=== PATIENT | female | born 1955 | race Caucasian/White ===

== ENCOUNTER 2025-10-08 12:46 | Inpatient (IN) | payer MEDICAID, SELFPAY ==
[2025-10-08] VITALS (7 sets, daily range): BP systolic 101–118; BP diastolic 55–78; PULSE 82–89; RESP 18–20; TEMP 36.6–36.7; O2SAT 91–96; BMI 24.2
--- OUTSIDE RECORDS SUMMARY | 2025-10-08 12:59 | XMS_ITS | Encounter Summary ---
Author Organization [facility] Address [address] [place] [address] Care Team Providers Care Oil Lease Broker Name Role Phone Kristen Quispe MD Primary Care Provider +1- [phone] Encounter Details Date Type Department Care Team (Latest Contact Info) Description 03/18/2001 Outpatient Historical [facility] Medicine [place] [address] [address] Keon Vogel DO NO ADDRESS ON FILE Backache, unspecified (Primary Dx) Social History Tobacco Use Types Packs/Day Years Used Date Smoking Tobacco: Never Assessed Comments Unknown Sex and Gender Information Value Date Recorded Sex Assigned at Not on file 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
--- OUTSIDE RECORDS SUMMARY | 2025-10-08 12:59 | XMS_ITS | Encounter Summary ---
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
--- OUTSIDE RECORDS SUMMARY | 2025-10-08 12:59 | XMS_ITS | Continuity of Care Document ---
Author Organization [facility] [place], [place], [facility] ([facility]) Address [address] [place] [address] Assessment No assessment recorded. Plan of Treatment Reminders Order Date Submit Date Provider Last Modified By Organization Details Last Modified Time Details Appointments None record ed. Lab None record ed. Referral None record ed. Procedures None record ed. Surgeries None record ed. Imaging None record ed. Medication Orders None record ed. Patient TargetsNo targets recorded. Patient Instructions Encounter Date Encounter Id Patient Instructions Last Modified By Organization Details Last Modified Time 07/19/2025 [id number] C/o dysuria. Jorgito altamirano check [facility] [email or web address] Not available 07/19/2025 14:07:07 Reason for Referral None Reported. Problems Name Problem SNOMED Code Status Onset Date Resolution Date Notes Provider Name and Address Organization Details Recorded Time Essential hypertensi on 48319664 Active 2022 Lambert English [address], [address] , [facility] 08:[facility]04 Muscular dystrophy 29992340 Active 2022 Lambert English [address], [address] , [facility], [place] 3 08:36:06 Diabetes mellitus 59590038 Active 2022 Lambert English [address], [address] , [facility], [place] 3 08:36:08 Vaginal irritation 441153759 Active 2022 YARELIS mckinnon, [facility] 3 13:01:17 Constipati on 51666106 [facility] 11:19:04 Dizziness 889998059 Active 2022 [facility] 13:34:41 Mixed anxiety and depressive disorder 316636480 Active 2022 [facility] 15:54:47 Cellulitis of right hip 2867465883536 9106 Active 2023 [facility] 10:17:16 Onychomyco sis 355464354 Active 2024 [facility] 5 15:36:59 Problem Notes None recorded. Medical Equipment None Reported. Allergies Allergen ID Allergen Name Allergen Category Reaction Reaction Severity Criticality Documentation Date Start Date Code Code System Note Provider Name and Address Organization Details Recorded Time 66134 penicilli n G potassium medicatio n Not available Not available Not available 05/16/202396831 3 RxNorm Comme nt: Recor ded 12/04 11:50 AM by Flori mari RN, Offic e Visit ; [employer] olive; Signi fican ce: *; Reaso n: Drug aller gy; ; Not Available [facility] 3 02:23:56 95166 aspirin medicatio n Not available Not available Not available 05/16/2023 1191 RxNorm Comme nt: Recor ded 12/04 11:50 AM by Flori mari RN, Offic e Visit ; [employer] olive; Signi fican ce: *; Reaso n: Drug aller gy; ; Not Available [facility] 3 02:23:56 24038 Product containin g penicilli n (product) medicatio n anaphylax is Not available high 09/06/20252007 05359 8001 SNOMED Not Available owen - External Data Service - prod 14:05:26 Medications Name Sig Start Date Stop Date Status Note LastModified by Organization Details LastModified Time Protonix 40 mg tablet,maria guadalupe yed release daily 2021 active recorded, not sent to pharmacy.; 49145; Recorded 10/12/2022 12:20PM by Yarelis Patel RN (Authorize d through Lambert English DO), Office Visit; Refill Quantity: 0; Not Available Not Available Not Available hydrocodone 5 mg-acetamin ophen 325 mg tablet Take 1 tablet every day by oral route as needed for 30 days. 2024 active Not Available Not Available Not Avai lable lovastatin 40 mg tablet daily active 0; Recorded 12/04/2022 11:50AM by Yarelis Patel RN, Office Visit; Not Available Not Available Not Available loperamide 2 mg tablet daily, as needed active 0; Recorded 12/04/2022 11:50AM by Yarelis Patel RN, Office Visit; Not Available Not Available Not Available Milk of Magnesia 400 mg/5 mL oral suspension as needed active 0; Recorded 12/04/2022 11:50AM by Yarelis Patel RN, Office Visit; Not Available Not Available Not Available Zyrtec 10 mg tablet daily active 0; Recorded 12/04/2022 11:50AM by Yarelis Patel RN, Office Visit; Not Available Not Available Not Available clopidogrel 75 mg tablet daily active 0; Recorded 12/04/2022 11:50AM by Yarelis Patel RN, Office Visit; Not Available Not Available Not Available tramadol 50 mg tablet every six hours, as needed 2021 active Recorded 06/04/2022 10:33AM by Lambert English DO, Refill Request; Refill Quantity: 120; Tablet; Not Available Not Available Not Available Zofran 4 mg tablet every six hours, as needed active 0; Recorded 12/04/2022 11:50AM by Yarelis Patel RN, Office Visit; Not Available Not Available Not Available docusate sodium 100 mg capsule daily active 0; Recorded 12/04/2022 11:50AM by Yarelis Patel RN, Office Visit; Not Available Not Available Not Available Mylanta 200 mg-200 mg-20 mg/5 mL oral suspension four times daily, as needed active 0; Recorded 12/04/2022 11:50AM by Yarelis Patel RN, Office Visit; Not Available Not Available Not Available solifenacin 10 mg tablet daily active 0; Recorded 12/04/2022 11:50AM by Yarelis Patel RN, Office Visit; Not Available Not Available Not Available nystatin two times daily, as needed active 0; Recorded 12/04/2022 11:50AM by Yarelis Patel RN, Office Visit; Not Available Not Available Not Available carboxymeth ylcellulose sodium three times daily, as needed active 0; Recorded 12/04/2022 11:50AM by Yarelis Patel RN, Office Visit; Not Available Not Available Not Available ipratropium bromide two times daily active 0; Recorded 12/04/2022 11:50AM by Yarelis Patel RN, Office Visit; Not Available Not Available Not Available Preparation H two times daily, as needed active 0; Recorded 12/04/2022 11:50AM by Yarelis Patel RN, Office Visit; Not Available Not Available Not Available furosemide daily active 0; Recorded 12/04/2022 11:50AM by Yarelis Patel RN, Office Visit; Not Available Not Available Not Available sodium chloride three times daily, as needed active 0; Recorded 12/04/2022 11:50AM by Yarelis Patel RN, Office Visit; Not Available Not Available Not Available promethazin e every six hours, as needed active 0; Recorded 12/04/2022 11:50AM by Yarelis Patel RN, Office Visit; Not Available Not Available Not Available glipizide daily active 0; Recorded 12/04/2022 11:50AM by Yarelis Patel RN, Office Visit; Not Available Not Available Not Available metformin two times daily active 0; Recorded 12/04/2022 11:50AM by Yarelis Patel RN, Office Visit; Not Available Not Available Not Available Lidocaine Viscous every six hours, as needed active 0; Recorded 12/04/2022 11:50AM by Yarelis Patel RN, Office Visit; Not Available Not Available Not Available [facility] Levothyroxi ne Sodium daily active 0; Recorded 12/04/2022 11:50AM by Yarelis Patel RN, Office Visit; Not Available Not Available Not Available Prostat two times daily active 0; Recorded 12/04/2022 11:50AM by Yarelis Patel RN, Office Visit; Not Available Not Available Not Available Mapap Arthritis Pain daily active 0; Recorded 12/04/2022 11:50AM by Yarelis Patel RN, Office Visit; Not Available Not Available Not Available Premarin two times weekly active 0; Recorded 12/04/2022 11:50AM by Yarelis Patel RN, Office Visit; Not Available Not Available Not Available Cymbalta daily 2021 active recorded, not sent to pharmacy.; 07176; Recorded 07/23/2022 10:50AM by Yarelis Patel RN (Authorize d through Lambert English DO), Office Visit; Refill Quantity: 0; Not Available Not Available Not Available Januvia 100 mg tablet daily active 0; Recorded 12/04/2022 11:50AM by Yarelis Patel RN, Office Visit; Not Available Not Available Not Available amlodipine besylate (bulk) daily 2021 active *dose decrease* recorded, not sent to pharmacy.; 27299; Recorded 03/27/2022 12:44PM by Yarelis Patel RN (Authorize d through Lambert English DO), Office Visit; Refill Quantity: 0; Not Available Not Available Not Available Biofreeze (menthol) 4 % topical gel as needed active 0; Recorded 12/04/2022 11:50AM by Yarelis Patel RN, Office Visit; Not Available Not Available Not Available Vitals Date Recorded Body height Body mass index (BMI) Body weight Heart rate Respiratory rate Body temperature Oxygen saturation Systolic And Diastolic Provider Name and Address Organization Details Last Updated DateTime 170.18 cm 21.3 kg/m2 26427.5 6 g 87 /min 20 /min 98.3 [degF] 99 % 117/68 mm[Hg] YARELIS PATEL [facility] 14:02:51 Social History Question Answer Notes LastModified by Organizat ion Details LastModified Time Tobacco Smoking Status Unknown If Ever Smoked YARELIS mckinnon, [facility] 01/15/2023 11:50:18 Have You Had Direct Contact, Or Contact During Intimacy, With Monkeypox Rash, Scabs, Or Body Fluids From A Person With Monkeypox? No [email or web address] Information not available 01/15/2023 Have You Recently Traveled Abroad? No [email or web address] Information not available 01/15/2023 Do You Have Difficulty Walking Or Climbing Stairs? Yes [email or web address] Information not available 02/12/2023 Sex: Unknown Functional Status Question Answer Note LastModified by Organizat ion Details LastModified Time Are you able to walk independently without assistance or assistive devices? NOWALK [email or web address] Information not available 01/15/2023 Do you have difficulty doing errands alone? Yes [email or web address] Information not available 02/12/2023 Are you able to care for yourself independently? No [email or web address] Information not available 01/15/2023 Do you have difficulty dressing, bathing, grooming, or toileting? Yes [email or web address] Information not available 02/12/2023 Mental Status None recorded. Family History Nothing Reported. Medical History No medical history recorded. Gynecological HistoryNo gynecological history recorded. Obstetrics History GPAL:G 0 P 0 0 0 0 Immunizations Vaccine Type Date Status Note Provider Nam e and Address Organization Details Recorded Time COVID-19, mRNA, LNP-S, PF, 100 mcg/0.5mL dose or 50 mcg/0.25mL dose 10/23/2020 completed Not Available [facility] 13:23:30 COVID-19, mRNA, LNP-S, PF, 100 mcg/0.5mL dose or 50 mcg/0.25mL dose 11/20/2020 completed Not Available [facility] 5 13:23:30 COVID-19, mRNA, LNP-S, PF, 100 mcg/0.5mL dose or 50 mcg/0.25mL dose 07/04/2022 completed Not Available [facility] 13:23:30 Past Encounters Encounter ID Performer Location Encounter Start Date Encounter Closed Date Diagnosis/Indication Diagnosis SNOMED-CT Code Diagnosis ICD10 Code Diagnosis IMO Codes Diagnosis Note [id number] Lambert English DO [facility] ([facility]) [address] [place] [address] 06/21/2025 12:20:02 06/26/2025 11:54:17 Mixed anxiety and depressive disorder 048179062 F41.8 Essential hypertension 74352009 I10 Diabetes mellitus 459648 09 E11.9 [id number] Lambert English DO [facility] ([facility]) [address] [place] [address] 07/19/2025 11:30:10 07/25/2025 07:52:36 Diabetes mellitus 76128628 E11.9 Muscular dystrophy 98706 009 G71.00 Essential hypertension 04650348 I10 Dizziness 010821597 R42 Mixed anxi ety and depressive disorder 381129060 F41.8 Hypothyroidism 45469500 E03.9 41264969 Splenomegaly 11384760 R1 6.1 7719413 Long QT syndrome 1097326 I45.81 601268 Hypertensi ve heart disease 79665609 I11.9 063320 Peripheral vascular disease 902973340 I73.9 912068 Health Concerns Section Related Observation LastModified by Organization Detai ls LastModified Time None Recorded Concern Status LastModified by Organization Details LastModified Time None Recorded Payers Encounter Date Sequence Insurance Name Policy Number Policy Frank Covered Member ID Frank Member ID Guarantor Name 07/19/2025 1 [place] Yuki Sales [id number] Yuki [employer] Notes Date Note Type Note Provider Name and Address Organization Details Recorded Time 5 text/html DiabetesReported by CaregiverHPIFor duration, caregiver reportschronic. For control, caregiver reportsusually well controlled. For compliance, caregiver reportscompliant with medicationsandcompliant with follow-up visits. For associated symptoms, caregiver reportsno weight gainandno confusion.ROS as noted in the HPI c/o dysuria. Lambert English DO [address] [place] [address], [address], [facility] 07/19/2025 15:19:12 OBGyn Episode No OBEpisode recorded.
--- OUTSIDE RECORDS SUMMARY | 2025-10-08 12:59 | XMS_ITS | Encounter Summary ---
Author Organization [employer] [facility] Address [address] [facility] Attn: Epic Prel[place] [address] Care Team Providers Care Homicide Squad Commanding Officer Name Role Phone Kristen Quispe MD Primary Care Provider +1- [phone] Encounter Details Date Type Department Care Team (Late st Contact Info) Description 12/04/1999 Outpatient Historical Qasim Aragon MD [address] [place] [address] Social History Tobacco Use Types Packs/Day Years Used Date Smoking Tobacco: Never Assessed Comments Unknown Sex and Gender Information Value Date Recorded Sex Assigned at Not on file 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
--- OUTSIDE RECORDS SUMMARY | 2025-10-08 12:59 | XMS_ITS | Encounter Summary ---
Author Organization [facility] Address [address] [place] [address] Care Team Providers Care Night Guard Name Role Phone Kristen Quispe MD Primary Care Provider +1- [phone] Encounter Details Date Type Department Care Team (Latest Contact Info) Description 11/12/1998 Outpatient Historical [facility] Medicine [place] [address] [address] Keon Vogel DO NO ADDRESS ON FILE Urinary tract infection, site not specified (Primary Dx) Social History Tobacco Use Types Packs/Day Years Used Date Smoking Tobacco: Never Assessed Comments Unknown Sex and Gender Information Value Date Recorded Sex Assigned at Not on file 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
--- OUTSIDE RECORDS SUMMARY | 2025-10-08 12:59 | XMS_ITS | Encounter Summary ---
Author Organization [facility] Address [address] [place] [address] Care Team Providers Care Tire Installer Name Role Phone Kristen Quispe MD Primary Care Provider Encounter Details Date Type Department Care Team (Latest Contact Info) Description 08/20/1998 Outpatient Historical [facility] [address] [address] Rickey Blood MD [address] [address] Urinary tract infection, site not specified (Primary Dx); Backache, unspecified Social History Tobacco Use Types Packs/Day Years Used Date Smoking Tobacco: Never Assessed Comments Unknown Sex and Gender Information Value Date Recorded Sex Assigned at Not on file Legal Sex Female 4: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
--- OUTSIDE RECORDS SUMMARY | 2025-10-08 12:59 | XMS_ITS | Encounter Summary ---
Author Organization [facility] Address [address] [facility] Attn: Epic [place] [address] Care Team Providers Care Coal Carrier Name Role Phone Kristen Quispe MD Primary Care Provider +1- [phone] Encounter Details Date Type Department Care Team (Late st Contact Info) Description 03/05/2001 Outpatient Historical Non-Staff, Physician NO ADDRESS ON FILE Social History Tobacco Use Types Packs/Day Years Used Date Smoking Tobacco: Never Assessed Comments Unknown Sex and Gender Information Value Date Recorded Sex Assigned at Not on file 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
--- OUTSIDE RECORDS SUMMARY | 2025-10-08 12:59 | XMS_ITS | Encounter Summary ---
Author Organization [facility] Address [address] [place] [address] Care Team Providers Care Chainman Name Role Phone Kristen Quispe MD Primary Care Provider Encounter Details Date Type Department Care Team (Latest Contact Info) Description 07/30/1999 Outpatient Historical [facility] [address] [address] Rickey Blood MD [address] [address] Phlebitis and thrombophlebitis of unspecified site (Primary Dx); Insomnia, unspecified Social History Tobacco Use Types Packs/Day Years Used Date Smoking Tobacco: Never Assessed Comments Unknown Sex and Gender Information Value Date Recorded Sex Assigned at Not on file 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
--- OUTSIDE RECORDS SUMMARY | 2025-10-08 12:59 | XMS_ITS | Encounter Summary ---
Author Organization [facility] Address [address] [place] [address] Care Team Providers Care [employer] Financials Consultant Name Role Phone Kristen Quispe MD Primary Care Provider Encounter Details Date Type Department Care Team (Latest Contact Info) Description 06/25/[address] 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
--- OUTSIDE RECORDS SUMMARY | 2025-10-08 12:59 | XMS_ITS | Encounter Summary ---
Author Organization [employer] [facility] Address [address] [facility] Attn: Epic [place]rel[place] [address] Care Team Providers Care Hair Clipper Power Name Role Phone Kristen Quispe MD Primary Care Provider +[phone]- [phone] Encounter Details Date Type Department Care Team (Late st Contact Info) Description 12/04/1999 Outpatient Historical Qasim Aragon MD [address] [place] [address] Social History Tobacco Use Types Packs/Day Years Used Date Smoking Tobacco: Never Assessed Comments Unknown Sex and Gender Information Value Date Recorded Sex Assigned at Not on file Legal Sex Female 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
--- OUTSIDE RECORDS SUMMARY | 2025-10-08 12:59 | XMS_ITS | Encounter Summary ---
Author Organization [facility] Address [address] [place] [address] Care Team Providers Care Deep Submergence Vehicle Crewmember Name Role Phone Kristen Quispe MD Primary Care Provider +1- [phone] Encounter Details Date Type Department Care Team (Latest Contact Info) Description 08/04/2008 Outpatient [facility] Medicine [address] [address] Suma Lees NP NO ADDRESS ON FILE Routine Gynecological Examination Social History Tobacco Use Types Packs/Day Years Used Date Smoking Tobacco: Every Day Cigarettes 1 34 Alcohol Use Standard Drinks/Week Comments No 0 (1 standard drink = 0.6 oz pur e alcohol) Comments No Sex and Gender Information Value Date Recorded Sex Assigned at Not on file Legal Sex Female 4:06 AM LIP CUTTER Gender Identity Not on file Sexual Orientation Not on file documented as of this encounter Plan of Treatment Not on file documented as of this encounter Procedures Procedure Name Priority Date/Time Associated Diagnosis Comments PATHOLOGY Routine 08/04/2008 9:17 AM CDT documented in this encounter Results * PATHOLOGY (08/04/2008 9:17 AM CDT) PATHOLOGY/YEIMY CHINO REPORT [facility] [address] [facility] [address] Patient: JORGE SALES Jes Accn No: [id number] Collected: 08/04/2008 9:17:00 AM CYTOLOGY PARTS CLERK PLANT MAINTENANCE FINAL REPORT - - PROPELLER INSPECTOR PAP History Specimen Source: None Provided hysterectomy Last Pap Date: None Provided Specimen Adequacy Satisfactory for interpretation. The smear lacks endocervical or metaplastic cells, consistent with the patient's clinical history. Diagnosis NEGATIVE FOR INTRAEPITHELIAL LESION OR MALIGNANCY. (Previously noted as Within Normal Limits) Archeologist Classical 08/14/08 Completed by: RATNA WILKINS (Electronically signed by) 08/14/08 Comment Routine follow-up is suggested. Important Info About Pap Smears HPV Testing off the Thin Prep vial can be done as a means of further evaluating a Thin Prep Report. For information about ordering the HPV test, phone Cytology at . Treatment or follow-up recommendations (if any) that are considered within this report are based upon general recommendations as contained in 2001 Consensus Guidelines For Cervical Cytological Abnormalities BANDAR: February 09, 2002, and are provided as a general guideline rather than as a specific recommendation. Final decisions about the most appropriate treatment and follow-up should be made on an individualized basis by the treating physician in consultation with his/her patient. INTERFACE SYSTEM 08/04/2008 9:17 AM CDT Suma Lees PLYWOOD STOCK GRADER PATHOLOGY/CYTOLOGY ORDERABLE S Edited INTERFACE SYSTEM Refer to clinic/hospital department documented in this encounter Visit Diagnoses Diagnosis Routine gynecological examination documented in this encounter Care Teams Deep Submergence Vehicle Crewmember Relationship Specialty Start Date End Date Kristen Quispe MD [address] [place] [address] PCP - General Family Practice 12/19/13 documented as of this encounter
--- OUTSIDE RECORDS SUMMARY | 2025-10-08 12:59 | XMS_ITS | Encounter Summary ---
Author Organization [facility] Address [address] [place] [address] Care Team Providers Care Political Science Instructor Name Role Phone Kristen Quispe MD Primary Care Provider +1- [phone] Encounter Details Date Type Department Care Team (Latest Contact Info) Description 02/22/1999 Outpatient Historical [facility] [address] [address] Keon Vogel DO NO ADDRESS ON FILE Urinary tract infection, site not specified (Primary Dx); Unspecified essential hypertension Social History Tobacco Use Types Packs/Day Years Used Date Smoking Tobacco: Never Assessed Comments Unknown Sex and Gender Information Value Date Recorded Sex Assigned at Not on file Legal Sex Female 4: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
--- OUTSIDE RECORDS SUMMARY | 2025-10-08 12:59 | XMS_ITS | Encounter Summary ---
Author Organization [facility] Address [address] [place] [address] Care Team Providers Care Anesthesiologist/Physician Name Role Phone Kristen Quispe MD Primary Care Provider +1- [phone] Encounter Details Date Type Department Care Team (Latest Contact Info) Description 01/28/2000 Outpatient Historical [facility] [address] [address] Keon Vogel DO NO ADDRESS ON FILE Urinary frequency (Primary Dx); Headache(784.0) Social History Tobacco Use Types Packs/Day Years Used Date Smoking Tobacco: Never Assessed Comments Unknown Sex and Gender Information Value Date Recorded Sex Assigned at Not on file Legal Sex Female 4:06 AM ECONOMIC RESEARCH ANALYST Gender Identity Not on file Sexual Orientation Not on file documented as of this encounter Plan of Treatment Not on file documented as of this encounter Visit Diagnoses Diagnosis Urinary frequency- Primary Headache(784.0) Headache documented in this encounter Care Teams Anesthesiologist/Physician Relationship Specialty Start Date End Date Kristen Quispe MD [address] [address] PCP - General Family Practice 12/19/13 documented as of this encounter
--- OUTSIDE RECORDS SUMMARY | 2025-10-08 12:59 | XMS_ITS | Encounter Summary ---
Author Organization [facility] Address [address] [place] [address] Care Team Providers Care Assistant Shift Supervisor Name Role Phone Kristen Quispe MD Primary Care Provider Encounter Details Date Type Department Care Team (Latest Contact Info) Description 03/16/2001 Outpatient Historical [facility] [address] [address] Rickey Blood MD [address] [address] Contusion of back(922.31) (Primary Dx) Social History Tobacco Use Types Packs/Day Years Used Date Smoking Tobacco: Never Assessed Comments Unknown Sex and Gender Information Value Date Recorded Sex Assigned at Not on file Legal Sex Female 4:06 AM CORRECTION OFFICER REFORMATORY Gender Identity Not on file Sexual Orientation Not on file documented as of this encounter Plan of Treatment Not on file documented as of this encounter Visit Diagnoses Diagnosis Contusion of back(922.31)- Primary Contusion of back documented in this encounter Care Teams Assistant Shift Supervisor Relationship Specialty Start Date End Date Kristen Quispe MD [address] [address] PCP - General Family Practice 12/19/13 documented as of this encounter
--- OUTSIDE RECORDS SUMMARY | 2025-10-08 12:59 | XMS_ITS | Encounter Summary ---
Author Organization [facility] Address [address] [place] [address] Care Team Providers Care Dry House Operator Name Role Phone Kristen Quispe MD Primary Care Provider +1- [phone] Encounter Details Date Type Department Care Team (Latest Contact Info) Description 05/08/1998 Outpatient Historical [facility] [address]tr[address], 3rd [place] [address] Minor Thomas Jr. [address], [address] [place] [address] Urethritis, unspecified (Primary Dx); Urinary tract infection, site not specified Social History Tobacco Use Types Packs/Day Years Used Date Smoking Tobacco: Never Assessed Comments Unknown Sex and Gender Information Value Date Recorded Sex Assigned at Not on file Legal Sex Female 4:06 AM DRY HOUSE OPERATOR Gender Identity Not on file Sexual Orientation Not on file documented as of this encounter Plan of Treatment Not on file documented as of this encounter Visit Diagnoses Diagnosis Urethritis, unspecified- Primary Urinary tract infection, site not specified documented in this encounter Care Teams Dry House Operator Relationship Specialty Start Date End Date Kristen Quispe MD [address] [facility] [address] [place] [address] PCP - General Family Practice 12/19/13 documented as of this encounter
--- OUTSIDE RECORDS SUMMARY | 2025-10-08 12:59 | XMS_ITS | Continuity of Care Document ---
Author Organization [facility] Glenda, [place], [facility] ([facility]) Address [address] [place] [address] Assessment No assessment recorded. Plan of Treatment [...] Modified By Organization Details Last Modified Time 09/06/2025 [id number] Continues to follow with wound care. C/o pain with urination, will get UA. [email or web address] Not available 09/06/2025 14:18:51 Reason for Referral None Reported. Problems Name Problem SNOMED Code Status Onset Date Resolution Date Notes Provider Name and Address Organization Details Recorded Time Essential hypertensi on 16156490 Active 2022 Lambert English DO [address] [place] [address], [address] , [facility] 08:36:04 Muscular dystrophy 76487118 Active 2022 Lambert English DO [address] [place] [address], [address] , [facility] 08:36:06 Diabetes mellitus 64877080 Active 2022 Lambert English [address], [address] , [facility] 08:36:08 Vaginal irritation 186454357 [facility] 20[facility] 13:01:17 Constipati on 30433590 Active 2022 [facility] 11:19:04 Dizziness 802344068 Active 2022 [facility] 13:34:41 Mixed anxiety and depressive disorder 087419428 Active 2022 [facility] 15:54:47 Cellulitis of right hip 0525712252014 9106 Active 2023 YARELIS PATEL [facility] 4 10:17:16 Onychomyco sis 803477955 Active 2024 YARELIS PATEL [facility] 5 15:36:59 Problem Notes None recorded. Medical Equipment None Reported. Allergies Allergen ID Allergen Name Allergen Category Reaction Reaction Severity Criticality Documentation Date Start Date Code Code System Note Provider Name and Address Organization Details Recorded Time 08461 penicilli n G potassium medicatio n Not available Not available Not available 05/16/2023 31923 3 RxNorm Comme nt: Recor ded 12/04 11:50 AM by Flori mari RN, Offic e Visit ; Promo olive; Signi manjit ce: *; Reaso n: Drug aller gy; ; Not Available [facility] 3 02:23:56 14721 aspirin medicatio n Not available Not available Not available 05/16/2023 1191 RxNorm Comme nt: Recor ded 12/04 11:50 AM by Flori mari RN, Offic e Visit ; Promo olive; Signi ficemily ce: *; Reaso n: Drug aller gy; ; Not Available [facility] 3 02:23:56 29333 Product containin g penicilli n (product) medicatio n anaphylax is Not available high 09/06/20252007 64611 8001 SNOMED Not Available owen - External Data Service - prod 14:05:26 Medications Name Sig Start Date Stop Date Status Note LastModified by Organization Details LastModified Time Protonix 40 mg tablet,maria guadalupe yed release daily 2021 active recorded, not sent to pharmacy.; 15696; Recorded 10/12/2022 12:20PM by Yarelis Patel RN [...] needed active 0; Recorded 12/04/2022 11:50AM by Yaerlis Patel RN, Office Visit; Not Available Not [...] 2021 active recorded, not sent to pharmacy.; 51641; Recorded 07/23/2022 10:50AM by Yarelis Patel RN (Authorize d through Lambert English DO), Office Visit; Refill Quantity: 0; Not Available Not Available Not Available Januvia 100 mg tablet daily active 0; Recorded 12/04/2022 11:50AM by Yarelis Patel RN, Office Visit; Not Available Not Available Not Available amlodipine besylate (bulk) daily 2021 active *dose decrease* recorded, not sent to pharmacy.; 51051; Recorded 03/27/2022 12:44PM by Yarelis Patel RN [...] and Address Organization Details Last Updated DateTime 5 170.18 cm 21.8 kg/m2 53190.3 4 g 78 /min 20 /min 97.8 [degF] 96 % 146/72 mm[Hg] YARELIS PATEL [facility] 14:16:14 Social History Question Answer Notes LastModified by Organizat ion Details LastModified Time Tobacco Smoking Status Unknown If Ever Smoked YARELIS PATEL null, [facility] 01/15/2023 11:50:18 Have You Had Direct Contact, Or Contact During Intimacy, With Monkeypox Rash, Scabs, Or Body Fluids From A Person With Monkeypox? No [email or web address] Information not available 01/15/2023 Have You Recently Traveled Abroad? No Information not available 01/15/2023 Do You Have Difficulty Walking Or Climbing Stairs? Yes Information not available 02/12/2023 Sex: Unknown Functional Status Question Answer Note LastModified by Organizat ion Details LastModified Time Are you able to walk independently without assistance or assistive devices? NOWALK [email or web address] Information not available 01/15/2023 Do you have difficulty doing errands alone? Yes [email or web address] Information not available 02/12/2023 Are you able to care for yourself independently? No [email or web address] Information not available 01/15/2023 Do you have difficulty dressing, bathing, grooming, or toileting? Yes [email or web address] Information not available 02/12/2023 Mental Status None recorded. Family History Nothing Reported. Medical History No medical history recorded. Gynecological HistoryNo gynecological history recorded. Obstetrics History GPAL:G 0 P 0 0 0 0 Immunizations Vaccine Type Date Status Note Provider Nam e and Address Organization Details Recorded Time COVID-19, mRNA, LNP-S, PF, 100 mcg/0.5mL dose or 50 mcg/0.25mL dose 10/23/2020 completed Not Available [facility] 5 13:23:30 COVID-19, mRNA, LNP-S, PF, 100 mcg/0.5mL dose or 50 mcg/0.25mL dose 11/20/2020 completed Not Available [facility] 5 13:23:30 COVID-19, mRNA, LNP-S, PF, 100 mcg/0.5mL dose or 50 mcg/0.25mL dose 07/04/2022 completed Not Available [facility] 13:23:30 Past Encounters Encounter ID Performer Location Encounter Start Date Encounter Closed Date Diagnosis/Indication Diagnosis SNOMED-CT Code Diagnosis ICD10 Code Diagnosis IMO Codes Diagnosis Note [id number] Lambert English DO [facility] ([facility]) [address] [place] [address] 09/06/2025 14:04:46 09/11/2025 09:11:09 Mixed anxiety and depressive disorder 867008344 F41.8 Essential hypertension 85969869 I10 Diabetes mellitus 143327 09 E11.9 Muscular dystrophy 13256 009 G71.00 Health Concerns Section Related Observation LastModified by Organization Detai ls LastModified Time None Recorded Concern Status LastModified by Organization Details LastModified Time None Recorded Payers Encounter Date Sequence Insurance Name Policy Number Policy Frank Covered Member ID Frank Member ID Guarantor Name 09/06/2025 1 [place] Yuki Sales [id number] Yuki Sales Notes Date Note Type Note Provider Name and Address Organization Details Recorded Time 5 text/html DiabetesReported by CaregiverHPIFor duration, caregiver reportschronic. For control, caregiver reportsusually well controlled. For compliance, caregiver reportscompliant with medicationsandcompliant with follow-up visits. For associated symptoms, caregiver reportsno weight gainandno confusion.ROS as noted in the HPI patient c/o dysuria. Lambert English DO [address] [place] [address], [address], [facility] 09/10/2025 15:07:44 OBGyn Episode No OBEpisode recorded.
--- OUTSIDE RECORDS SUMMARY | 2025-10-08 12:59 | XMS_ITS | Encounter Summary ---
Author Organization [facility] Address [address] [place] [address] Care Team Providers Care Keg Raiser Name Role Phone Kristen Quispe MD Primary Care Provider +1- [phone] Encounter Details Date Type Department Care Team (Latest Contact Info) Description 02/27/2000 Outpatient Historical [facility] [address] [address] Cristal Craft NO ADDRESS ON FILE Rhinitis due to pollen (Primary Dx); Simple or unspecified chronic serous otitis media; Unspecified tinnitus; Dizziness and giddiness Social History Tobacco Use Types Packs/Day Years Used Date Smoking Tobacco: Never Assessed Comments Unknown Sex and Gender Information Value Date Recorded Sex Assigned at Not on file Legal Sex Female 4:06 AM DRY KILN LOADER Gender Identity Not on file Sexual Orientation Not on file documented as of this encounter Plan of Treatment Not on file documented as of this encounter Visit Diagnoses Diagnosis Rhinitis due to pollen- Primary Allergic rhinitis due to pollen Simple or unspecified chronic serous otitis media Unspecified tinnitus Dizziness and giddiness documented in this encounter Care Teams Keg Raiser Relationship Specialty Start Date End Date Kristen Quispe MD [address] [phone] PCP - General Family Practice 12/19/13 documented as of this encounter
--- OUTSIDE RECORDS SUMMARY | 2025-10-08 12:59 | XMS_ITS | Encounter Summary ---
Author Organization [facility] Address [address] [place] [address] Care Team Providers Care Pediatric Dental Assistant Name Role Phone Kristen Quispe MD Primary Care Provider +1- [phone] Encounter Details Date Type Department Care Team (Latest Contact Info) Description 02/03/2000 Outpatient Historical [facility] [address] [address] Keon Vogel DO NO ADDRESS ON FILE Cystitis, unspecified (Primary Dx); Headache(784.0) Social History Tobacco Use Types Packs/Day Years Used Date Smoking Tobacco: Never Assessed Comments Unknown Sex and Gender Information Value Date Recorded Sex Assigned at Not on file Legal Sex Female 4:06 AM MEDIA CENTER SPECIALIST Gender Identity Not on file Sexual Orientation Not on file documented as of this encounter Plan of Treatment Not on file documented as of this encounter Visit Diagnoses Diagnosis Cystitis, unspecified- Primary Headache(784.0) Headache documented in this encounter Care Teams Pediatric Dental Assistant Relationship Specialty Start Date End Date Kristen Quispe MD [address] [address] PCP - General Family Practice 12/19/13 documented as of this encounter
--- OUTSIDE RECORDS SUMMARY | 2025-10-08 12:59 | XMS_ITS | Encounter Summary ---
Author Organization [facility] Address [address] [place] [address] Care Team Providers Care Range Scientist Name Role Phone Kristen Quispe MD Primary Care Provider +1- [phone] Encounter Details Date Type Department Care Team (Latest Contact Info) Description 07/10/2000 Outpatient Historical [facility] [address] [address] Keon Vogel DO NO ADDRESS ON FILE Unspecified symptom associated with female genital organs (Primary Dx); Lumbago Social History Tobacco Use Types Packs/Day Years Used Date Smoking Tobacco: Never Assessed Comments Unknown Sex and Gender Information Value Date Recorded Sex Assigned at Not on file Legal Sex Female 4:06 AM OCTAVE BOARD ASSEMBLER Gender Identity Not on file Sexual Orientation Not on file documented as of this encounter Plan of Treatment Not on file documented as of this encounter Visit Diagnoses Diagnosis Unspecified symptom associated with female genital organs- Primary Lumbago documented in this encounter Care Teams Range Scientist Relationship Specialty Start Date End Date Kristen Quispe MD [address] [address] PCP - General Family Practice 12/19/13 documented as of this encounter
--- OUTSIDE RECORDS SUMMARY | 2025-10-08 12:59 | XMS_ITS | Encounter Summary ---
Author Organization [facility] Address [address] [place] [address] Care Team Providers Care Welder Explosion Name Role Phone Kristen Quispe MD Primary Care Provider +1- [phone] Encounter Details Date Type Department Care Team (Latest Contact Info) Description 03/18/2000 Outpatient Historical [facility] [address] [address] Keon Vogel, NO ADDRESS ON FILE Other specified menopausal and postmenopausal disorder (Primary Dx) Social History Tobacco Use Types Packs/Day Years Used Date Smoking Tobacco: Never Assessed Comments Unknown Sex and Gender Information Value Date Recorded Sex Assigned at Not on file Legal Sex Female 4:06 AM SENIOR LINUX ENGINEER Gender Identity Not on file Sexual Orientation Not on file documented as of this encounter Plan of Treatment Not on file documented as of this encounter Visit Diagnoses Diagnosis Other specified menopausal and postmenopausal disorder- Primary documented in this encounter Care Teams Welder Explosion Relationship Specialty Start Date End Date Kristen Quispe MD [address] [address] PCP - General Family Practice 12/19/13 documented as of this encounter
--- OUTSIDE RECORDS SUMMARY | 2025-10-08 12:59 | XMS_ITS | Encounter Summary ---
Author Organization [facility] Address [address] [place] [address] Care Team Providers Care Photographer Motion Picture Name Role Phone Kristen Quispe MD Primary Care Provider +1- [phone] Reason for Referral * Outpatient Services (Routine) - Closed Specialty Diagnoses / Procedures Referred By Quinten cottrell Referred To Contact Diagnoses Screening mammogram Procedures MAMMO SCREENING BILAT Keon Vogel DO NO ADDRESS ON FILE Referral ID Status Reason Start Date Expiration Date Visits Re quested Visits Authorized [id number] Closed 09/20/2010 03/19/2011 1 1 GE OPERATOR Encounter Details Date Type Department Care Team (Late st Contact Info) Description 09/20/2010 Ancillary Orders [facility] Imaging External Read [address] [place] [address] Keon Vogel DO NO ADDRESS ON FILE Screening mammogram Social History Tobacco Use Types Packs/Day Years Used Date Smoking Tobacco: Every Day Cigarettes 1 34 Alcohol Use Standard Drinks/Week Comments No 0 (1 standard drink = 0.6 oz pur e alcohol) Comments No Sex and Gender Information Value Date Recorded Sex Assigned at Not on file Legal Sex Female 4:06 AM BRIDGE OPERATOR Gender Identity Not on file Sexual Orientation Not on file documented as of this encounter Plan of Treatment Not on file documented as of this encounter Results * MAMMO SCREENING BILAT (09/20/2010 2:47 PM BRIDGE OPERATOR) Anatomical Region Laterality Modality Breast Bilateral Mammography Narrative 09/24/2010 12:30 PM BRIDGE OPERATOR Bilateral Mammogram Reason for Exam: Screening Comparison: Comparison is made with the prior exam(s) dated 05.12.08 Findings: Bilateral CC and MLO views were obtained. This examination was reviewed with the aid of a computer-aided detection system(CAD). The breast tissue density is fatty. No significant new findings since the prior mammogram(s). Procedure Note Robb Kaba MD - 09/24/2010 Bilateral Mammogram Reason for Exam: Screening Comparison: Comparison is made with the prior exam(s) dated 05.12.08 Findings: Bilateral CC and MLO views were obtained. This examination was reviewed with the aid of a computer-aided detectionsystem(CAD). The breast tissue density is fatty. No significant new findings since the prior mammogram(s). Keon Vogel DO MAMMO ORDERABLES Final Result documented in this encounter Visit Diagnoses Diagnosis Screening mammogram Other screening mammogram documented in this encounter Care Teams Photographer Motion Picture Relationship Specialty Start Date End Date Kristen Quispe MD [address] [phone] PCP - General Family Practice 12/19/13 documented as of this encounter
--- OUTSIDE RECORDS SUMMARY | 2025-10-08 12:59 | XMS_ITS | Encounter Summary ---
Author Organization [facility] Address [address] [place] [address] Care Team Providers Care Cream Buyer Name Role Phone Kristen Quispe MD Primary Care Provider Encounter Details Date Type Department Care Team (Latest Contact Info) Description 04/19/2001 Outpatient Historical [facility] [address] [address] Rickey Blood MD [address] [facility] [address] [place] [address] Hered prog musc dystrphy (Primary Dx); Degeneration of intervertebral disc, site unspecified; Blood in stool Social History Tobacco Use Types Packs/Day Years Used Date Smoking Tobacco: Never Assessed Comments Unknown Sex and Gender Information Value Date Recorded Sex Assigned at Not on file Legal Sex Female 4:06 AM FOREIGN LANGUAGES DEPARTMENT CHAIR Gender Identity Not on file Sexual Orientation Not on file documented as of this encounter Plan of Treatment Not on file documented as of this encounter Visit Diagnoses Diagnosis Hered prog musc dystrphy- Primary Hereditary progressive muscular dystrophy Degeneration of intervertebral disc, site unspecified Blood in stool documented in this encounter Care Teams Cream Buyer Relationship Specialty Start Date End Date Kristen Quispe MD [address] [address] PCP - General Family Practice 12/19/13 documented as of this encounter
--- OUTSIDE RECORDS SUMMARY | 2025-10-08 12:59 | XMS_ITS | Encounter Summary ---
Author Organization [facility] Address [address] [place] [address] Care Team Providers Care Supervisor Microfilm Duplicating Unit Name Role Phone Kristen Quispe MD Primary Care Provider [phone] Encounter Details Date Type Department Care Team (Latest Contact Info) Description 11/26/1998 Outpatient Historical [facility] [address] [address] Keon Vogel DO NO ADDRESS ON FILE Vaginitis and vulvovaginitis, unspecified (Primary Dx); Screening for malignant neoplasm of the cervix; Generalized hyperhidrosis Social History Tobacco Use Types Packs/Day Years Used Date Smoking Tobacco: Never Assessed Comments Unknown Sex and Gender Information Value Date Recorded Sex Assigned at Not on file Legal Sex Female 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
--- OUTSIDE RECORDS SUMMARY | 2025-10-08 12:59 | XMS_ITS | Encounter Summary ---
Author Organization [facility] Address [address] [facility] Attn: Epic Prel[place] [address] Care Team Providers Care Onion Topper Name Role Phone Kristen Quispe MD Primary Care Provider [phone] Encounter Details Date Type Department Care Team (Late st Contact Info) Description 02/05/2001 Outpatient Historical Qasim Aragon MD [address] [place] [address] Social History Tobacco Use Types Packs/Day Years Used Date Smoking Tobacco: Never Assessed Comments Unknown Sex and Gender Information Value Date Recorded Sex Assigned at Not on file Legal Sex Female 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
--- OUTSIDE RECORDS SUMMARY | 2025-10-08 12:59 | XMS_ITS | Encounter Summary ---
Author Organization [facility] Address [address] [facility] Attn: Epic [place] [address] Care Team Providers Care Assistant City Attorney Name Role Phone Kristen Quispe MD Primary Care Provider [phone] Encounter Details Date Type Department Care Team (Late st Contact Info) Description 10/24/2008 Outpatient Historical Philippe Qiu DO NO ADDRESS ON FILE Social History Tobacco Use Types Packs/Day Years Used Date Smoking Tobacco: Every Day Cigarettes 1 34 Alcohol Use Standard Drinks/Week Comments No 0 (1 standard drink = 0.6 oz pur e alcohol) Comments No Sex and Gender Information Value Date Recorded Sex Assigned at Not on file Legal Sex Female 4:06 AM MICROSOFT EXCHANGE ARCHITECT Gender Identity Not on file Sexual Orientation Not on file documented as of this encounter Plan of Treatment Not on file documented as of this encounter Procedures Procedure Name Priority Date/Time Associated Diagnosis Comments PATHOLOGY Routine 10/24/2008 8:53 AM MICROSOFT EXCHANGE ARCHITECT documented in this encounter Results * PATHOLOGY (10/24/2008 8:53 AM MICROSOFT EXCHANGE ARCHITECT) PATHOLOGY/CYT OLOGY REPORT [facility] Anatomic Pathology Dept [facility] Arley Macdonald [facility] [address] Patient: JORGE SALES Accn No: [id number] Collected: 10/24/2008 8:53:00 AM SURGICAL PATHOLOGY FINAL REPORT Diagnosis A. Colon, 20 cm, biopsy - benign colonic mucosal tissue with no significant pathologic abnormalities. / B. Colon, 15 cm, biopsy - benign colonic mucosal tissue with no significant pathologic abnormalities. Jose Mixon M.D. (Electronicall y signed by) Verified: 10/26/08 DD /CELENAT Clinical Information Polyps. Specimen Source AColon, 20 CM BColon, 15 CM Microscopic Description Microscopic examination was performed. Gross Description Part A. Submitted in a container of formalin labelled Henrry - #1, 4 mm colon polyp at 20 cm is a gomes soft tissue fragment measuring 0.3 x 0.2 x 0.2 cm. The specimen is submitted entirely in A1, nine levels. Part B. Submitted in a container of formalin labelled Henrry - #2, 4 mm colon polyp at 15 cm is a gomes soft tissue fragment measuring 0.3 x 0.2 x 0.2 cm. The specimen is submitted entirely in B1, nine levels. DLS/WLS [facility] 10/24/2008 8:53 AM MICROSOFT EXCHANGE ARCHITECT Philippe Qiu DO PATHOLOGY/CYTOLOGY ORDERABLES Final Result INTERFACE SYSTEM Refer to clinic/hospital department [facility] CLIA# [id number] [address] [place] [address] documented in this encounter Visit Diagnoses Not on filedocumented in this encounter Care Teams Assistant City Attorney Relationship Specialty Start Date End Date Kristen Quispe MD [address] [facility] [address] [place] [phone] PCP - General Family Practice 12/19/13 documented as of this encounter
--- OUTSIDE RECORDS SUMMARY | 2025-10-08 12:59 | XMS_ITS | Encounter Summary ---
Author Organization [facility] Address [address] [facility] Attn: Epic Prelude [place] [address] Care Team Providers Care Oracle Ascp Consultant Name Role Phone Kristen Quispe MD Primary Care Provider [phone] Encounter Details Date Type Department Care Team (Late st Contact Info) Description 01/01/2000 Outpatient Historical Qasim Aragon MD [address] [place] [address] Social History Tobacco Use Types Packs/Day Years Used Date Smoking Tobacco: Never Assessed Comments Unknown Sex and Gender Information Value Date Recorded Sex Assigned at Not on file Legal Sex Female 4:06 AM ANALYTICAL STRATEGIST Gender Identity Not on file Sexual Orientation Not on file documented as of this encounter Plan of Treatment Not on file documented as of this encounter Visit Diagnoses Not on filedocumented in this encounter Care Teams Oracle Ascp Consultant Relationship Specialty Start Date End Date Kristen Quispe MD [address] [facility] [address] [place] [address] PCP - General Family Practice 12/19/13 documented as of this encounter
--- OUTSIDE RECORDS SUMMARY | 2025-10-08 13:00 | XMS_ITS | Encounter Summary ---
Author Organization [facility] Address [address] [place] [address] Care Team Providers Care Baling Machine Tender Name Role Phone Kristen Quispe MD Primary Care Provider [phone] Encounter Details Date Type Department Care Team (Late st Contact Info) Description 03/22/2008 Outpatient Historical [facility] DEPART[facility] Qasim Aragon MD [address] [place] [address] Social History Tobacco Use Types Packs/Day Years Used Date Smoking Tobacco: Never Assessed Comments Unknown Sex and Gender Information Value Date Recorded Sex Assigned at Not on file Legal Sex Female 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
--- OUTSIDE RECORDS SUMMARY | 2025-10-08 13:00 | XMS_ITS | Encounter Summary ---
Author Organization [facility] Address [address] [place] [address] Care Team Providers Care Media Intern Name Role Phone Kristen Quispe MD Primary Care Provider [phone] Reason for Referral * Outpatient Services (Routine) - Closed Specialty Diagnoses / Procedures Referred By Contac t Referred To Contact Radiology Diagnoses Tibial plateau fracture Procedures CT KNEE WO CONTRAST LEFT Drew Puckett MD [facility] CT Scan Albert Lea [address] [facility] [address] [place] [address] Phone: tel: fax: Referral ID Status Reason Start Date Expiration Date V isits Requested Visits Authorized [id number] Closed [facility] CTS to Schedule (SGF) 07/30/2017 08/29/2017 1 1 Encounter Details Date Type Department Care Team (Latest Contact Info) Description 07/27/2017 Ancillary Orders [facility] Centralized Scheduling [address] [facility] [address] [place] [address] Drew Puckett MD NO ADDRESS ON FILE Tibial plateau fracture Social History Tobacco Use Types Packs/Day Years Used Date Smoking Tobacco: Every Day Cigarettes 0.5 37 Smokeless Tobacco: Never Alcohol Use Standard Drinks/Week Comments No 0 (1 standard drink = 0.6 oz pur e alcohol) Comments No Sex and Gender Information Value Date Recorded Sex Assigned at Not on file Legal Sex Female 4:06 AM SOCIAL 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 Exam: CT KNEE WO CONTRAST LEFT Date/Time of Exam: 08/05/2017 10:14 AM Reason For Exam: Tibial plateau fracture. Technique: CT of the left knee was performed without the administration of intravenous contrast. Findings: There is osteopenia. A fracture of the lateral tibial plateau is identified. This is a dye punch fracture with depression of the lateral articular surface measuring 2.5 mm. No extension of the fracture line in the medial tibia is identified. The fibula, femur and patella are intact. There is a knee joint effusion. There is severe muscle atrophy and fatty infiltration of the muscles compatible with the history of muscular dystrophy. No soft tissue fluid collection is identified. IMPRESSION: 1. Dye punch fracture of the lateral tibial plateau with depression measuring 2.5 mm. Severe osteopenia is also noted. [id number] Narrative Procedure Note Mary Kate Aleman MD - 08/05/2017 IMPRESSION: Please see below. Exam: CT KNEE WO CONTRAST LEFT Date/Time of Exam: 08/05/2017 10:14 AM Reason For Exam: Tibial plateau fracture. Technique: CT of the left knee was performed without the administration of intravenous contrast. Findings: There is osteopenia. A fracture of the lateral tibial plateau is identified. This is a dye punch fracture with depression of the lateral articular surface measuring 2.5 mm. No extension of the fracture line in the medial tibia is identified. The fibula, femur and patella are intact. There is a knee joint effusion. There is severe muscle atrophy and fatty infiltration of the muscles compatible with the history of muscular dystrophy. No soft tissue fluid collection is identified. IMPRESSION: 1. Dye punch fracture of the lateral tibial plateau with depression measuring 2.5 mm. Severe osteopenia is also noted. [id number] ORDERABLES Final Result documented in this encounter Visit Diagnoses Diagnosis Tibial plateau fracture Closed fracture of upper end of tibia Tibial plateau fracture Closed fracture of upper end of tibia documented in this encounter Care Teams Media Intern Relationship Specialty Start Date End Date Kristen Quispe MD [address] [phone] PCP - General Family Practice 12/19/13 documented as of this encounter
--- OUTSIDE RECORDS SUMMARY | 2025-10-08 13:00 | XMS_ITS | Clinical Summary ---
Author Organization [facility] Address [address] [place] [address] Care Team Providers Care General Production Manager Name Role Phone Kristen Quispe MD Primary Care Provider Allergies Active Allergy Reactions Criticality Noted Date Comments Aspirin Hives High 08/04/2008 Penicillins Anaphylaxis High 08/04/2008 Medications levothyroxine 100 mcg tablet Take 100 mcg by mouth daily hot walker. 9 Active gabapentin (NEURONTIN) 300 mg capsule Take 1 Capsule (300 mg) by mouth daily at bedtime For 3 days, then take 1 cap bid for 3 days, then take 1 cap tid thereafter.. 90 Capsule 5 7 Active dextromethorpha n-guaiFENesin (MUCINEX DM) 30-600 mg Tablet Sustained Release 12HR Take 1 Tablet by mouth every 12 hours. 5 Active promethazine (PHENERGAN) 25 mg tablet Take 25 mg by mouth every 6 hours as needed for Nausea/Emesis. 5 Active docusate sodium (COLACE) 100 mg capsule Take 100 mg by mouth daily. 5 Active menthol (HALLS COUGH DROPS) 7.6 mg Lozenge 1 Lozenge by See Admin Instructions route every 2 hours as needed for Sore Throat. 5 Active carboxymethylce llulose sodium (REFRESH) 0.5 % solution Administer 2 Drops in both eyes every 4 hours as needed. 5 Active acetaminophen (TYLENOL) 325 mg tablet Take 650 mg by mouth every 6 hours as needed for Pain. Active PARoxetine HCl (PAXIL) 10 mg tablet Take 10 mg by mouth daily. Active traMADoL (ULTRAM) 50 mg tablet Take 50 mg by mouth every 6 hours as needed for Pain. Active simethicone 80 mg Tablet, Chewable Take 80 mg by mouth 2 times daily as needed. Active loperamide (IMODIUM) 2 mg Tablet Take 2 mg by mouth every 3 hours as needed for Diarrhea/Loose Stools. Active Cholecalciferol , Vitamin D3, 50 mcg (2,000 unit) Capsule Take 2,000 Units by mouth daily. Active metFORMIN (GLUCOPHAGE) 1,000 mg tablet Take 1,000 mg by mouth 2 times daily with meals. Active furosemide (LASIX) 20 mg tablet Take 20 mg by mouth daily. Active saliva stimulant combo #2 (BIOTENE) Liquid 1 Squirt by Mouth/Throat route 1 time daily as needed for Discomfort. Active menthol (BIOFREEZE) 4 % Gel Apply to affected area every 8 hours as needed for Pain. Active aluminum - magnesium - simethicone (MYLANTA) 200-200-20 mg/5 mL Suspension Take 15 mL by mouth every 6 hours as needed for Dyspepsia. Active amLODIPine (NORVASC) 10 mg tablet Take 10 mg by mouth daily. Active magnesium hydroxide (MILK OF MAGNESIA) 400 mg/5 mL suspension Take 30 mL by mouth 1 time daily as needed for Constipation. Active hydrophilic wound dressing (TRIAD) Apply to affected area daily. Apply to sacrum and groin topically everyday Active HYDROcodone-jes taminophen (NORCO) 5-325 mg tablet Take 1 Tablet by mouth every 8 hours as needed for Pain, Moderate. Active gabapentin (NEURONTIN) 100 mg capsule Take 100 mg by mouth 3 times daily. Active ondansetron (ZOFRAN) 4 mg Tablet Take 4 mg by mouth every 6 hours as needed for Nausea/Emesis. Active buPROPion HCL (WELLBUTRIN SR) 150 mg Sustained Release 12 hour tablet Take 150 mg by mouth daily. Active sennosides-docu sate sodium (SENNA-S) 8.6-50 mg tablet Take 1 Tablet by mouth every 24 hours. Active sertraline (ZOLOFT) 100 mg tablet Take 200 mg by mouth daily at bedtime. Active sodium chloride (OCEAN) 0.65 % Aerosol, Gallant Administer 1 Gallant in each nostril 2 times daily. Active conjugated estrogens (PREMARIN) 0.625 mg/gram vaginal cream Insert 1 Gram vaginally twice weekly. Administer on Thursday and Thursday. Active docusate sodium (DOCUSIL ORAL) Take 100 mg by mouth daily. Active BISACODYL RECTAL Insert 1 Suppository by rectum every 24 hours. Active triamcinolone acetonide (KENALOG) 0.025 % Cream Apply to affected area twice weekly. Apply to inside vagina topically every Thursday and night Active solifenacin (VESICARE) 10 mg Tablet Take 10 mg by mouth daily at bedtime. Active famotidine (PEPCID) 20 mg tablet Take 20 mg by mouth daily at bedtime. Active lovastatin (MEVACOR) 40 mg tablet Take 40 mg by mouth daily with supper. Active clopidogreL (PLAVIX) 75 mg Tablet Take 75 mg by mouth daily. Active acetaminophen (TYLENOL ARTHRITIS) 650 mg Extended Release tablet Take 650 mg by mouth every 6 hours as needed for Pain. Give 2 tablets by mouth in the morning Active polyethylene glycol 3350 (MIRALAX) 17 gram/dose Powder Take 17 Grams by mouth 1 time daily as needed for Constipation. Dissolve in 8 ounces of fluid and drink entire liquid Active Active Problems Problem Noted Date Diagnosed Date Muscular dystrophy 08/20/2024 Acute cystitis with hematuria 08/20/2024 Bacteremia due to Gram-positive bacteria 024 Severe sepsis with septic shock 08/19/2024 QT prolongation 08/19/2024 Hypokalemia 08/19/2024 Hypomagnesemia 08/19/2024 Acute pyelonephritis 08/19/2024 Cirrhosis of liver with ascites 08/19/2024 Splenomegaly 08/19/2024 Sacral decubitus ulcer, stage II 10/25/2021 Closed fracture of left ankle with routine heali ng 11/30/2020 Dental caries 04/10/2020 Nondisplaced bicondylar fracture of left tibia, sequela 09/23/2017 Neuropathic pain 01/16/2017 Onychomycosis 03/08/2016 Tinnitus 10/25/2015 Tobacco use 10/25/2015 Constipation, unspecified 09/11/2015 Major depressive disorder, s radha episode, severe without psychotic features 08/07/2015 Type 2 diabetes mellitus without complication Allergic rhinitis 04/04/2011 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 Hypothyroidism 08/04/2008 Hyperlipidemia 08/04/2008 Generalized anxiety disorder 08/04/2008 GERD (gastroesophageal reflux disease) 8 HTN (hypertension) 08/04/2008 Resolved Problems Problem Noted Date Diagnosed Date Resolved Date Acute maxillary sinusitis 10/25/2015 Amyotrophic lateral sclerosis 09/11/2015 10/26/2015 Muscular dystrophy 05/14/2010 3 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 Encounters Date Type Department Care Team Description 08/16/2025 External Device Data ST[facility] ABSTRACTION Provider, Abstract 08/16/2025 External Device Data [facility] ABSTRACTION Provider, Abstract 08/15/2025 External Device Data [facility] ABSTRACTION Provider, Abstract 08/09/2025 External Device Data [facility] ABSTRACTION Provider, Abstract 08/09/2025 External Device Data ST[facility] ABSTRACTION Provider, Abstract 08/08/2025 External Device Data ST[facility] ABSTRACTION Provider, Abstract 07/25/2025 External Device Data STL ABSTRACTION Provider, Abstract from Last 3 Months Immunizations Immunization Administration Dates Next Due (PNEUMOVAX 23)(50 YRS UP) PN EUMOCOCCAL POLYSACCHARIDE (PPV23) 0.5 ML, IM 07/01/2012 Influenza Seasonal Unspecifi ed Formulation IM 07/20/2015,07/01/2012,08/07/2006 Influenza Vaccine Split 3+ Yrs IM 07/20/2009, Influenza Vaccine Split 3+ Yrs PF IM 12/08/2011, 08/16/2010 Zoster Vaccine Live SQ 07/01/2012 Family History Medical History Relation Name Comments Healthy Brother 1 Healthy Brother 2 Healthy Brother 3 Heart Disease Father Respiratory Disease Father Unknown Maternal Grandfather Unknown Maternal Grandmother Cancer Mother liver Heart Disease Mother Unknown Paternal Grandfather Unknown Paternal Grandmother Heart Disease Sister 1 Kidney Disease Sister 1 uni kidney, f rom kidney stone Other Sister 1 poor circulatio n Other Sister 2 bladder problem s Breast Cancer Neg Hx Colon Cancer Neg Hx Relation Name Status Comments Brother 1 Alive Brother 2 Alive Brother 3 Alive Father Maternal Grandfather Maternal Grandmother Mother Paternal Grandfather Paternal Grandmother Sister 1 Sister 2 Alive Social History Tobacco Use Types Packs/Day Years Used Date Smoking Tobacco: Every Day Cigarettes Smokeless Tobacco: Never Tobacco Cessation:Ready to Q uit: Not Asked; Counseling Given: Not Answered Alcohol Use Standard Drinks/Week Comments No 0 (1 standard drink = 0.6 oz pur e alcohol) Feeling Safe Answer Date Recorded Are you in a relationship wi th someone who hurts you emotionally and/or physically? No 08/22/2024 Food Insecurity Answer Date Recorded Patient needs follow up regardin 02/22/2025 Transportation Needs Answer Date Record ed Patient needs follow up regardin 02/22/2025 Utility Needs Answer Date Recorded Patient needs follow up regardin 02/22/2025 Comments No Sex and Gender Information Value Date Recorded Sex Assigned at Not on file Legal Sex Female 9:25 AM INDUSTRIAL PHARMACIST Gender Identity Not on file Sexual Orientation Not on file Last Filed Vital Signs Vital Sign Reading Time Taken Comments Blood Pressure 122/66 08/26/2024 4:10 PM INDUSTRIAL PHARMACIST Pulse 82 08/26/2024 4:10 PM INDUSTRIAL PHARMACIST Temperature 36.4 C (97.6 F) 08/26/2024 4:10 PM INDUSTRIAL PHARMACIST Respiratory Rate 16 08/26/2024 4:10 PM INDUSTRIAL PHARMACIST Oxygen Saturation 94% 08/26/2024 4:10 PM INDUSTRIAL PHARMACIST Inhaled Oxygen Concentration - - Weight 77.5 kg (170 lb 12.8 oz) 024 10:51 AM INDUSTRIAL PHARMACIST Height 170.2 cm (5' 7 ) 08/31/2024 2:16 PM INDUSTRIAL PHARMACIST Body Mass Index 26.75 08/24/2024 10:51 AM INDUSTRIAL PHARMACIST Plan of Treatment Health Maintenance Due Date Last Done Comments DIABETES ANNUAL FOOT EXAM 1975 DIABETES ANNUAL RETINAL EXAM 1975 DIABETES MICROALBUMIN ANNUAL SCREEN 1975 LDL CHOLESTEROL ANNUAL 1975 DTAP/TDAP/TD VACCINES (1 - Tdap) 1976 Preventative Visit-Managed Medicaid 1976 FIT-DNA Q 3 years 2002 FIT/FOBT Q 1 year 2002 Flex Sig/CT Colonography Q 5 years 2002 RSV VACCINE (60+ or ) (1 - Risk 50-74 years 1-dose series) 2007 COLORECTAL SCREENING 10/24/2010 10/24/2008 Colorectal Cancer Screening 10/24/2010 BREAST CANCER SCREENING 09/20/2011 09/20/2010, 09/20 ZOSTER VACCINE (2 of 3) 08/26/2012 07/01/2012 PNEUMOCOCCAL VACCINE 50+ YEA RS (2 of 2 - PCV) 07/01/2013 07/01/2012 OSTEOPOROSIS SCREENING 2022 DIABETES HBA1C Q 6 MONTHS 03/05/20252023, 11/28/2019, 11/28/2019 INFLUENZA VACCINE (#1) 2025 5, 07/01/2012, 12/08/2011, Additional history exists Procedures Procedure Name Priority Date/Time Associated Diagnosis Comments HEMOGLOBIN A1C Routine 09/05/2024 MAMMO SCREENING BILAT Routine 09/20/2010 2:47 PM INDUSTRIAL PHARMACIST Other screening mammogram from Last 3 Months or Most Recently Relevant to Health Maintenance Results * HEMOGLOBIN A1C (09/05/2024) ABSTRACTED HGB A1C 7.9 % Blood 09/05/2024 us Abstract Provider CHEMISTRY ORDERABLES Final Res ult * MAMMO SCREENING BILAT (09/20/2010 2:47 PM INDUSTRIAL PHARMACIST) Anatomical Region Laterality Modality Breast Bilateral Other Narrative 09/24/2010 12:30 PM INDUSTRIAL PHARMACIST Bilateral Mammogram Reason for Exam: Screening Comparison: Comparison is made with the prior exam(s) dated 08 Findings: Bilateral CC and MLO views were obtained. This examination was reviewed with the aid of a computer-aided detection system(CAD). The breast tissue density is fatty. No significant new findings since the prior mammogram(s). Procedure Note Robb Kaba MD - 01/02/2023 Bilateral Mammogram Reason for Exam: Screening Comparison: Comparison is made with the prior exam(s) dated 2005+7.08 Findings: Bilateral CC and MLO views were obtained. This examination was reviewed with the aid of a computer-aided detection system(CAD). The breast tissue density is fatty. No significant new findings since the prior mammogram(s). Keon Vogel DO MAMMO ORDERABLES Final Result from Last 3 Months or Most Recently Relevant to Health Maintenance Insurance [place]ICAID [place] Advance Directives For more information, please contact: [phone] Documents on File Type Date Recorded Patient Signals Intelligence Superintendent Expl anation Patient Life Sustaining Treatment Doc 08/19/2024 1:45 PM Outside the Hospital DNR - Patient Life Sustaining Treatment Doc * NO CPR (In Event of Cardiopulmonary Arrest) (Latest Code Status on File) Date Activated Date Inactivated Comments 08/20/2024 9:53 AM 08/27/2024 2:01 AM Question Answer Comments Mechanical Ventilation (for respiratory distress) - Invasive (i.e. intubation): No Mechanical Ventilation (for respiratory distress) - Non-Invasive (i.e. BiPAP, CPAP): Yes * NO CPR (In Event of Cardiopulmonary Arrest) Date Activated Date Inactivated Comments 08/20/2024 9:53 AM 08/20/2024 9:53 AM Question Answer Comments Mechanical Ventilation (for respiratory distress) - Invasive (i.e. intubation): No Mechanical Ventilation (for respiratory distress) - Non-Invasive (i.e. BiPAP, CPAP): No * Default Full Code - Needs Discussion Date Activated Date Inactivated Comments 08/19/2024 6:37 PM 08/20/2024 9:53 AM Care Teams General Production Manager Relationship Specialty Start Date End Date Kristen Quispe MD [address] [address] PCP - General Family Practice 12/19/13
--- OUTSIDE RECORDS SUMMARY | 2025-10-08 13:00 | XMS_ITS | Encounter Summary ---
Author Organization [facility] Address [address] [place] [address] Care Team Providers Care Construction Rep Name Role Phone Kristen Quispe MD Primary Care Provider [phone]- [phone] Encounter Details Date Type Department Care Team (Latest Contact Info) Description 03/26/2006 Outpatient Historical [facility] [address] [address] Suma Lees NP NO ADDRESS ON FILE Routine Gynecological Examination (Primary Dx); Acute Pharyngitis; Acute Sinusitis, Unspecified; Hered Prog Musc Dystrphy Social History Tobacco Use Types Packs/Day Years Used Date Smoking Tobacco: Never Assessed Comments Unknown Sex and Gender Information Value Date Recorded Sex Assigned at Not on file 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
--- OUTSIDE RECORDS SUMMARY | 2025-10-08 13:00 | XMS_ITS | Encounter Summary ---
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
--- OUTSIDE RECORDS SUMMARY | 2025-10-08 13:00 | XMS_ITS | Encounter Summary ---
Author Organization [facility] Address [address] [place] [address] Care Team Providers Care Truck Sales Representative Name Role Phone Krsiten Quispe MD Primary Care Provider [phone]- [phone] Encounter Details Date Type Department Care Team (Late st Contact Info) Description 10/05/2007 Outpatient Historical [facility] Medicine [place] [address] [address] Keon Vogel DO NO ADDRESS ON FILE Social History Tobacco Use Types Packs/Day Years Used Date Smoking Tobacco: Never Assessed Comments Unknown Sex and Gender Information Value Date Recorded Sex Assigned at Not on file 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
--- OUTSIDE RECORDS SUMMARY | 2025-10-08 13:00 | XMS_ITS | Encounter Summary ---
Author Organization [facility] Address [address] [place] [address] Care Team Providers Care Turbine Operator Name Role Phone Kristen Quispe MD Primary Care Provider [phone]- [phone] Encounter Details Date Type Department Care Team (Late st Contact Info) Description 04/18/2020 Lab Requisition [facility] Laboratory Services [address] [place] [address] Drew Puckett MD NO ADDRESS ON FILE Social History Tobacco Use Types Packs/Day Years Used Date Smoking Tobacco: Every Day Cigarettes 0.5 37 Smokeless Tobacco: Never Alcohol Use Standard Drinks/Week Comments No 0 (1 standard drink = 0.6 oz pur e alcohol) Comments No Sex and Gender Information Value Date Recorded Sex Assigned at Not on file 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 Gender Identity Not on file Sexual Orientation Not on file Occupation Industry Job Start Date Job End Date Not on file Not on file Not on file Not on file documented as of this encounter Plan of Treatment Not on file documented as of this encounter Procedures Procedure Name Priority Date/Time Associated Diagnosis Comments URINE CULTURE Stat 04/18/2020 4:35 AM CDT documented in this encounter Results * (ABNORMAL) URINE CULTURE (04/18/2020 4:35 AM CDT) CULTURE KLEBSIELLA PNEUMONIAE(A) LAURA MCG/ML 04/20/2020 7:11 AM CDT [facility] Urine (Urine, straight in/out catheter) 04/18/2020 4:35 AM CDT 04/18/2020 2:32 PM CDT Narrative Organism Antibiotic Method Susceptibility Klebsiella pneumoniae AMOXICILLIN/ CLAVULANATE LAURA MCG /ML <=2 mcg/mL: Susceptible Klebsiella pneumoniae AMPICILLIN/ SULBACTAM LAURA MCG/ML 8 mcg/mL: Susceptible Klebsiella pneumoniae AMPICILLIN LAURA MCG/ML >=32 mcg/mL: Resistant Klebsiella pneumoniae CEFAZOLIN LAURA MCG/ML <=4 mcg/mL: Susceptible Klebsiella pneumoniae CIPROFLOXACIN LAURA MCG/ML <=0.25 mcg/mL: Susceptible Klebsiella pneumoniae GENTAMICIN LAURA MCG/ML <=1 mcg/mL: Susceptible Klebsiella pneumoniae LEVOFLOXACIN LAURA MCG/ML <=0.12 mcg/mL: Susceptible Klebsiella pneumoniae NITROFURANTOIN LAURA MCG/ML 256 mcg/mL: Resistant Klebsiella pneumoniae PIPERACILLIN/ TAZOBACTAM LAURA MCG /ML <=4 mcg/mL: Susceptible Klebsiella pneumoniae TOBRAMYCIN LAURA MCG/ML <=1 mcg/mL: Susceptible Klebsiella pneumoniae TRIMETHOPRIM/ SULFAMETHOXAZOLE LAURA MCG/ML <=20 mcg/mL: Susceptible Drew Puckett MD MICROBIOLOGY - GENERAL ORDERABLES Final Result [facility] CLIA# [id number] [address] [place] [id number] documented in this encounter Visit Diagnoses Not on filedocumented in this encounter Care Teams Turbine Operator Relationship Specialty Start Date End Date Kristen Quispe MD [address] [place] [address] PCP - General Family Practice 12/19/13 documented as of this encounter
--- OUTSIDE RECORDS SUMMARY | 2025-10-08 13:00 | XMS_ITS | Encounter Summary ---
Author Organization [facility] Address [address] [place] [address] Care Team Providers Care Beater Dumper Name Role Phone Kristen Quispe MD Primary Care Provider [phone]- [phone] Encounter Details Date Type Department Care Team (Latest Contact Info) Description 08/21/2006 Outpatient Historical [facility] Medicine [place] [address] [address] Keon Vogel DO NO ADDRESS ON FILE Unspecified Hypothyroidism (Primary Dx); Unspecified Essential Hypertension Social History Tobacco Use Types Packs/Day Years Used Date Smoking Tobacco: Never Assessed Comments Unknown Sex and Gender Information Value Date Recorded Sex Assigned at Not on file 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
--- OUTSIDE RECORDS SUMMARY | 2025-10-08 13:00 | XMS_ITS | Encounter Summary ---
Author Organization [facility] Address [address] [place] [address] Care Team Providers Care Dust Box Worker Name Role Phone Kristen Quispe MD Primary Care Provider +1- [phone] Encounter Details Date Type Department Care Team (Late st Contact Info) Description 09/26/2020 Lab Requisition [facility] Laboratory Services [address] [place] [address] Drew Puckett MD NO ADDRESS [...] on file Legal Sex Female 4:06 AM AIR TURNING MACHINE FEEDER Gender Identity Not on file Sexual Orientation Not on file Occupation Industry Job Start Date Job End Date Not on file Not on file Not on file Not on file documented as of this encounter Plan of Treatment Not on file documented as of this encounter Procedures Procedure Name Priority Date/Time Associated Diagnosis Comments URINE CULTURE Routine 09/25/2020 11:00 AM AIR TURNING MACHINE FEEDER documented in this encounter Results * URINE CULTURE (09/25/2020 11:00 AM AIR TURNING MACHINE FEEDER) CULTURE Polymicrobial growth consistent with normal urethral sohan and/or colonizing bacteria 09/27/2020 12:36 PM AIR TURNING MACHINE FEEDER [facility] Urine URINE SPECIMEN OBTAINED BY CLEAN CATCH PROCEDURE / Unknown Collection / Unknown 09/25/2020 11:00 AM AIR TURNING MACHINE FEEDER 09/26/2020 5:13 PM AIR TURNING MACHINE FEEDER us Drew Puckett MD MICROBIOLOGY - GENERAL ORDERABLES Final Result Performing Organization Address City/State/[facility] Co de Phone Number [facility] [address] [place] [address] documented in this encounter Visit Diagnoses Not on filedocumented in this encounter Care Teams Dust Box Worker Relationship Specialty Start Date End Date Kristen Quispe MD [address] [phone] PCP - General Family Practice 12/19/13 documented as of this encounter
--- OUTSIDE RECORDS SUMMARY | 2025-10-08 13:00 | XMS_ITS | Encounter Summary ---
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
--- OUTSIDE RECORDS SUMMARY | 2025-10-08 13:00 | XMS_ITS | Encounter Summary ---
Author Organization [facility] Address [address] [place] [address] Care Team Providers Care Produce Associate Name Role Phone Kristen Quispe MD Primary Care Provider +1- [phone] Encounter Details Date Type Department Care Team (Late st Contact Info) Description 08/14/2006 Outpatient Historical [facility] Imaging Services [place] [address] [address] [facility] [place] [phone] Qasim Aragon MD [address] [place] [address] Lumbosacral Spondylosis without Myelopathy (Primary Dx) Social History Tobacco Use Types Packs/Day Years Used Date Smoking Tobacco: Never Assessed Comments Unknown Sex and Gender Information Value Date Recorded Sex Assigned at Not on file 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
--- OUTSIDE RECORDS SUMMARY | 2025-10-08 13:00 | XMS_ITS | Continuity of Care Document ---
Author Organization [facility] [place], [place], [facility] ([facility]) Address [address] [place] [address] Assessment No assessment recorded. Plan of Treatment [...] Modified By Organization Details Last Modified Time 09/27/2025 [id number] No changes made, doing well. Mood good. [email or web address] Not available 10/02/2025 15:06:12 Reason for Referral None Reported. Problems Name Problem SNOMED Code Status Onset Date Resolution Date Notes Provider Name and Address Organization Details Recorded Time Essential hypertensi on 34119597 Active 2022 Lambert English [address], [address] , [facility], [place] 3 08:36:04 Muscular dystrophy 11237976 Active 2022 Lambert English [address], [address] , [facility], [place] 3 08:36:06 Diabetes mellitus 16372333 Active 2022 Lambert English [address], [address] , [facility], [place] 3 08:36:08 Vaginal irritation 504749027 Active 2022 YARELIS mckinnon, [facility] 3 13:01:17 Constipati on 61148711 [facility] 11:19:04 Dizziness 011040401 Active 2022 [facility] 13:34:41 Mixed anxiety and depressive disorder 212689427 Active 2022 [facility] 15:54:47 Cellulitis of right hip 5620805322922 9106 Active 2023 [facility] 10:17:16 Onychomyco sis 987722339 Active 2024 [facility] 5 15:36:59 Problem Notes None recorded. Medical Equipment None Reported. Allergies Allergen ID Allergen Name Allergen Category Reaction Reaction Severity Criticality Documentation Date Start Date Code Code System Note Provider Name and Address Organization Details Recorded Time 15280 penicilli n G potassium medicatio n Not available Not available Not available 05/16/202375304 3 RxNorm Comme nt: Recor ded 12/04 11:50 AM by Flori mari RN, Offic e Visit ; [employer]; Signi fican ce: *; Reaso n: Drug aller gy; ; Not Available [facility] 3 02:23:56 54212 aspirin medicatio n Not available Not available Not available 05/16/2023 1191 RxNorm Comme nt: Recor ded 12/04 11:50 AM by Flori mari RN, Offic e Visit ; [employer]; Signi fican ce: *; Reaso n: Drug aller gy; ; Not Available [facility] 3 02:23:56 66694 Product containin g penicilli n (product) medicatio n anaphylax is Not available high 09/06/20252007 56970 8001 SNOMED Not Available owen - External Data Service - prod 14:05:26 Medications Name Sig Start Date Stop Date Status Note LastModified by Organization Details LastModified Time Protonix 40 mg tablet,maria guadalupe yed release daily 2021 active recorded, not sent to pharmacy.; 96495; Recorded 10/12/2022 12:20PM by Yarelis Patel RN [...] 2021 active recorded, not sent to pharmacy.; 04201; Recorded 07/23/2022 10:50AM by Yarelis Patel RN (Authorize d through Lambert English DO), Office Visit; Refill Quantity: 0; Not Available Not Available Not Available Januvia 100 mg tablet daily active 0; Recorded 12/04/2022 11:50AM by Yarelis Patel RN, Office Visit; Not Available Not Available Not Available amlodipine besylate (bulk) daily 2021 active *dose decrease* recorded, not sent to pharmacy.; 49293; Recorded 03/27/2022 12:44PM by Yarelis Patel RN [...] Updated DateTime 5 170.18 cm 21.8 kg/m2 94119.3 4 g 81 /min 18 /min 97.8 [degF] 94 % 104/67 mm[Hg] YARELIS PATEL [facility] 5 15:02:39 Social History Question Answer Notes LastModified by Organizat ion Details LastModified Time Tobacco Smoking Status Unknown If Ever Smoked YARELIS mckinnon, [facility] 01/15/2023 11:50:18 Have You Had Direct Contact, Or Contact During Intimacy, With Monkeypox Rash, Scabs, Or Body Fluids From A Person With Monkeypox? No [email or web address] Information not available 01/15/2023 Have You Recently Traveled Abroad? No Information not available 01/15/2023 Do You Have Difficulty Walking Or Climbing Stairs? Yes Information not available 02/12/2023 Sex: Unknown Functional Status Question Answer Note LastModified by Organizat ion Details LastModified Time Are you able to walk independently without assistance or assistive devices? NOWALK [email or web address] Information not available 01/15/2023 Do you have difficulty doing errands alone? Yes [email or web address] Information not available 02/12/2023 Are you able to care for yourself independently? No [email or web address] Information not available 01/15/2023 Do you have difficulty dressing, bathing, grooming, or toileting? Yes [email or web address] Information not available 02/12/2023 Mental Status None recorded. Family History Nothing Reported. Medical History No medical history recorded. Gynecological HistoryNo gynecological history recorded. Obstetrics History GPAL:G 0 P 0 0 0 0 Immunizations Vaccine Type Date Status Note Provider Nam e and Address Organization Details Recorded Time COVID-19, mRNA, LNP-S, PF, 100 mcg/0.5mL dose or 50 mcg/0.25mL dose 10/23/2020 completed Not Available [facility] 13:23:30 COVID-19, mRNA, LNP-S, PF, 100 mcg/0.5mL dose or 50 mcg/0.25mL dose 11/20/2020 completed Not Available [facility] 5 13:23:30 COVID-19, mRNA, LNP-S, PF, 100 mcg/0.5mL dose or 50 mcg/0.25mL dose 07/04/2022 completed Not Available [facility] 13:23:30 Past Encounters Encounter ID Performer Location Encounter Start Date Encounter Closed Date Diagnosis/Indication Diagnosis SNOMED-CT Code Diagnosis ICD10 Code Diagnosis IMO Codes Diagnosis Note [id number] Lambert English [facility] ([facility]) [address] [place] [address] 09/06/2025 14:04:46 09/11/2025 09:11:09 Mixed anxiety and depressive disorder 018346092 F41.8 Essential hypertension 82366071 I10 Diabetes mellitus 009105 09 E11.9 Muscular dystrophy 18737 009 G71.00 [id number] Lambert EnglishDO [facility] ([facility]) [address] [place] [address] 09/27/2025 13:23:14 10/06/2025 12:19:03 Mixed anxiety and depressive disorder 636088994 F41.8 Essential hypertension 71270134 I10 Diabetes mellitus 874641 09 E11.9 Muscular dystrophy 58797 009 G71.00 Health Concerns Section Related Observation LastModified by Organization Detai ls LastModified Time None Recorded Concern Status LastModified by Organization Details LastModified Time None Recorded Payers Encounter Date Sequence Insurance Name Policy Number Policy Frank Covered Member ID Frank Member ID Guarantor Name 09/27/2025 1 [place] Yuki Sales [id number] Yuki Sales Notes Date Note Type Note Provider Name and Address Organization Details Recorded Time 5 text/html DiabetesReported by CaregiverHPIFor duration, caregiver reportschronic. For control, caregiver reportsusually well controlled. For compliance, caregiver reportscompliant with medicationsandcompliant with follow-up visits. For associated symptoms, caregiver reportsno weight gainandno confusion.ROS as noted in the HPI no complaints Lambert English DO [address] [place] [address], [address], [facility] - [facility], LPamelaLPamelaCPamela 10/05/2025 05:17:46 OBGyn Episode No OBEpisode recorded.
--- OUTSIDE RECORDS SUMMARY | 2025-10-08 13:00 | XMS_ITS | Encounter Summary ---
Author Organization [facility] Address [address] [place] [address] Care Team Providers Care Family Nurse Practitioner Name Role Phone Kristen Quispe MD Primary Care Provider +1- [phone] Encounter Details Date Type Department Care Team (Latest Contact Info) Description 03/26/2006 Outpatient Historical [facility] [address] [phone] Suma Lees NP NO ADDRESS ON FILE Routine Gynecological Examination (Primary Dx) Social History Tobacco Use Types Packs/Day Years Used Date Smoking Tobacco: Never Assessed Comments Unknown Sex and Gender Information Value Date Recorded Sex Assigned at Not on file 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
--- OUTSIDE RECORDS SUMMARY | 2025-10-08 13:00 | XMS_ITS | Encounter Summary ---
Author Organization [facility] Address [address] [place] [address] Care Team Providers Care Regulatory Compliance Specialist Name Role Phone Kristen Quispe MD Primary Care Provider +1- [phone] Encounter Details Date Type Department Care Team (Latest Contact Info) Description 01/12/2007 Outpatient Historical [facility] [address] [address] Keon Vogel DO NO ADDRESS ON FILE Contusion of Chest Wall (Primary Dx); Unspecified Otalgia Social History Tobacco Use Types Packs/Day Years Used Date Smoking Tobacco: Never Assessed Comments Unknown Sex and Gender Information Value Date Recorded Sex Assigned at Not on file Legal Sex Female 4:06 AM CATEGORY DIRECTOR Gender Identity Not on file Sexual Orientation Not on file documented as of this encounter Plan of Treatment Not on file documented as of this encounter Visit Diagnoses Diagnosis Contusion of chest wall- Primary Otalgia, unspecified documented in this encounter Care Teams Regulatory Compliance Specialist Relationship Specialty Start Date End Date Kristen Quispe MD [address] [address] PCP - General Family Practice 12/19/13 documented as of this encounter
--- OUTSIDE RECORDS SUMMARY | 2025-10-08 13:00 | XMS_ITS | Encounter Summary ---
Author Organization [facility] Address [address] [place] [address] Care Team Providers Care Commercial Insulator Name Role Phone Kristen Quispe MD Primary Care Provider +1- [phone] Encounter Details Date Type Department Care Team (Late st Contact Info) Description 08/14/2006 Outpatient Historical [facility] Imaging Services [address] 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 Gender Identity Not on file Sexual Orientation Not on file documented as of this encounter Plan of Treatment Not on file documented as of this encounter Procedures Procedure Name Priority Date/Time Associated Diagnosis Comments MRI LUMBAR W WO CONTRAST Routine 08/14/2006 12:01 AM CDT documented in this encounter Results * MRI LUMBAR W WO CONTRAST (08/14/2006 12:01 AM CDT) Anatomical Region Laterality Modality Spine Other 08/14/2006 12:0 1 AM CDT Narrative 08/14/2006 12:01 AM CDT MRI Lumbar Spine With and Without Contrast: Technique: Sagittal T1, sagittal T2, sagittal IR, axial T1, axial T2 images of the lumbar spine wereperformed. Sagittal T1 post gadolinium fat-sat sequence was performed. 15 milliliters Optimarkcontrast agent was utilized. Findings: The sagittal images show signal loss, volume loss, and circumferential bulge at L4-L5 and toa lesser extent at L3-L4. Compression deformity with signs of fatty marrow and stability at L1 ispresent in the superior endplate. No subluxation of the vertebral bodies is noted. Neural foraminaare widely patent. Conus and cauda equina are unremarkable. Sagittal IR sequence shows no endplatereparative changes. The transaxial images demonstrate normal L1- L2 and normal L2-L3 interspaces. L3-L4 shows a mildcircumferential bulge of the annulus. L4-L5 shows an osteoannular bulge with facet hypertrophy. L5-S1 is unremarkable. Paraspinous muscles are unremarkable. The postcontrast sagittal sequence demonstrates the usual epidural enhancement. Conus and cauda equinaare unremarkable. No enhancement in the L1 vertebral body is noted. No enhancement in the discspaces is noted. Impression: Changes of aging. No focal findings identified. - Dictated By: Uche More M.D. Electronically Signed By: Uche More M.D. Date Signed: 08/15/06 Procedure Note 09/07/2009 MRI Lumbar Spine With and Without Contrast: Technique: Sagittal T1, sagittal T2, sagittal IR, axial T1, axial T2 images of thelumbar spine wereperformed. Sagittal T1 post gadolinium fat-sat sequence was performed. 15 millilitersOptimarkcontrast agent was utilized. Findings: The sagittal images show signal loss, volume loss, and circumferentialbulge at L4-L5 and toa lesser extent at L3-L4. Compression deformity with signs of fatty marrow andstability at L1 ispresent in the superior endplate. No subluxation of the vertebral bodies is noted. Neuralforaminaare widely patent. Conus and cauda equina are unremarkable. Sagittal IR sequence shows noendplatereparative changes. The transaxial images demonstrate normal L1- L2 and normal L2-I3gjjkqeecupx. L3- L4 shows a mildcircumferential bulge of the annulus. L4-L5 shows an osteoannularbulge with facet hypertrophy. L5-S1 is unremarkable. Paraspinous muscles are unremarkable. The postcontrast sagittal sequence demonstrates the usual epiduralenhancement. Conus and cauda equinaare unremarkable. No enhancement in the L1 vertebral body is noted. Noenhancement in the discspaces is noted. Impression: Changes of aging. No focal findings identified. - Dictated By: Uche More M.D. Electronically Signed By: Uche More M.D. Date Signed: 08/15/06 us Qasim Aragon MD MR ORDERABLES Final Resul t documented in this encounter Visit Diagnoses Not on filedocumented in this encounter Care Teams Commercial Insulator Relationship Specialty Start Date End Date Kristen Quispe MD [address] [phone] PCP - General Family Practice 12/19/13 documented as of this encounter
--- OUTSIDE RECORDS SUMMARY | 2025-10-08 13:00 | XMS_ITS | Encounter Summary ---
Author Organization [facility] Address [address] [place] [address] Care Team Providers Care Health Insurance Agent Name Role Phone Kristen Quispe MD Primary Care Provider [phone]- [phone] Encounter Details Date Type Department Care Team (Late st Contact Info) Description 11/19/2007 Outpatient Historical [facility] Medicine [address] [address] Keon Vogel, NO ADDRESS ON FILE Social History Tobacco Use Types Packs/Day Years Used Date Smoking Tobacco: Never Assessed Comments Unknown Sex and Gender Information Value Date Recorded Sex Assigned at Not on file Legal Sex Female 4:06 AM MEDICAL DOCTOR MD Gender Identity Not on file Sexual Orientation Not on file documented as of this encounter Progress Notes * Keon Vogel, - 11/19/2007 12:00 AM CST Patient Name: Yuki Sales DOS: 11/19/2007 : 1955 VITALS: Weight: 0.0 pounds. Not dictated. Pulse: 0. Not dictated. BP: 120/90. Temperature 98.4. REASON FOR VISIT: She has been having some problem with lower abdominal pain and thought it might be my urine . This has been going on for about 2 days. The patient relates she has been drinking more over the past 2 days. The patient relates the pain is not there all the time. Denies chronic constipation, diarrhea, alek blood or melena in the stool. OBJECTIVE: GENERAL: The patient is alert. ENT: Tympanic membranes not injected. Nose; nasal turbinates within normal limits. Mouth; tongue ismidline. NECK: Supple. HEART: Regular rate and rhythm. ABDOMEN: Soft. There is mild tenderness in the lower quadrants. No guarding. No rigidity. Bowel sounds present. The patient does have a history of a hysterectomy were ovaries were also removed. ASSESSMENT: Abdominal pain and tenderness. PLAN: Urinalysis did reveal moderate blood, but no leukocyte esterase. Recommend repeating a urinalysis in 2 weeks. The patient is just finishing Biaxin and sometimes that can cause some abdominal discomfort. If pain should become constant or if she develops nausea, vomiting, or fever then the patient needs to be reevaluated, otherwise will recheck her urine in 2 weeks. Keon Vogel D.O. [facility] Electronically Signed by Keon Vogel D.O. 11/26/2007 15:26 , P, [email or web address] Document #: [id number] cc: CAL DOCTOR MD documented in this encounter Plan of Treatment Not on file documented as of this encounter Procedures Procedure Name Priority Date/Time Associated Diagnosis Comments URINALYSIS DIPSTICK ONLY Stat 12/17/2007 2:55 PM MEDICAL DOCTOR MD URINALYSIS DIPSTICK ONLY Stat 12/03/2007 1:45 PM MEDICAL DOCTOR MD documented in this encounter Results * (ABNORMAL) URINALYSIS DIPSTICK ONLY (12/17/2007 2:55 PM MEDICAL DOCTOR MD) COLOR UA YELLOW YEL [facility] PERFORMED IN OFFICE CLARITY UA CLEAR CLER [facility] PERFORMED IN OFFICE SPECIFIC GRAVITY UA 1.015 1.005 - 1.030 [facility] PERFORMED IN OFFICE PH, URINE 8.0 5.0 - 9.0 [facility] PERFORMED IN OFFICE PROTEIN UA NEGATIVE NEG MG/DL [facility] PERFORMED IN OFFICE GLUCOSE UA NEGATIVE NEG MG/DL [facility] PERFORMED IN OFFICE KETONES UA NEGATIVE NEG MG/DL [facility] PERFORMED IN OFFICE BILIRUBIN UA NEGATIVE NEG [facility] PERFORMED IN OFFICE NITRITE UA NEGATIVE NEG [facility] PERFORMED IN OFFICE UROBILINOGEN UA 0.2 0.2 - 1.0 EU/DL [facility] PERFORMED IN OFFICE BLOOD UA SMALL(A) NEG [facility] PERFORMED IN OFFICE LEUKOCYTE ESTERASE UA NEGATIVE NEG [facility] PERFORMED IN OFFICE 12/17/2007 2:55 PM MEDICAL DOCTOR MD 12/17/2007 3:00 PM MEDICAL DOCTOR MD Keon Vogel DO URINE ORDERABLES Final Result Performing Organization Address [facility] de Phone Number [facility] PERFORMED IN OFFICE * (ABNORMAL) URINALYSIS DIPSTICK ONLY (12/03/2007 1:45 PM MEDICAL DOCTOR MD) COLOR UA YELLOW YEL [facility] PERFORMED IN OFFICE CLARITY UA CLEAR CLER [facility] PERFORMED IN OFFICE SPECIFIC GRAVITY UA 1.010 1.005 - 1.030 [facility] PERFORMED IN OFFICE PH, URINE 5.5 5.0 - 9.0 [facility] PERFORMED IN OFFICE PROTEIN UA NEGATIVE NEG MG/DL [facility] PERFORMED IN OFFICE GLUCOSE UA NEGATIVE NEG MG/DL [facility] PERFORMED IN OFFICE KETONES UA NEGATIVE NEG MG/DL [facility] PERFORMED IN OFFICE BILIRUBIN UA NEGATIVE NEG [facility] PERFORMED IN OFFICE NITRITE UA NEGATIVE NEG [facility] PERFORMED IN OFFICE UROBILINOGEN UA 0.2 0.2 - 1.0 EU/DL [facility] PERFORMED IN OFFICE BLOOD UA SMALL(A) NEG [facility] PERFORMED IN OFFICE LEUKOCYTE ESTERASE UA NEGATIVE NEG [facility] PERFORMED IN OFFICE 12/03/2007 1:45 PM MEDICAL DOCTOR MD 12/03/2007 1:50 PM MEDICAL DOCTOR MD Keon Vogel DO URINE ORDERABLES Final Result Performing Organization Address [facility] Co de Phone Number [facility] PERFORMED IN OFFICE documented in this encounter Visit Diagnoses Not on filedocumented in this encounter Care Teams Health Insurance Agent Relationship Specialty Start Date End Date Kristen Quispe MD [address] [address] PCP - General Family Practice 12/19/13 documented as of this encounter
--- OUTSIDE RECORDS SUMMARY | 2025-10-08 13:00 | XMS_ITS | Encounter Summary ---
Author Organization [facility] Address [address] [place] [address] Care Team Providers Care Stitch Burnisher Name Role Phone Kristen Quispe MD Primary Care Provider Encounter Details Date Type Department Care Team (Latest Contact Info) Description 02/13/2006 Outpatient Historical [facility] Medicine [place] [address] [address] Rickey Blood MD [address] [address] Acute Sinusitis, Unspecified (Primary Dx); Unspecified Backache Social History Tobacco Use Types Packs/Day Years Used Date Smoking Tobacco: Never Assessed Comments Unknown Sex and Gender Information Value Date Recorded Sex Assigned at Not on file 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
--- OUTSIDE RECORDS SUMMARY | 2025-10-08 13:00 | XMS_ITS | Encounter Summary ---
Author Organization [facility] Address [address] [place] [address] Care Team Providers Care Housekeeping Assistant Name Role Phone Kristen Quispe MD Primary Care Provider +1- [phone] Encounter Details Date Type Department Care Team (Latest Contact Info) Description 06/04/[address] 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
--- OUTSIDE RECORDS SUMMARY | 2025-10-08 13:00 | XMS_ITS | Encounter Summary ---
Author Organization [facility] Address [address] [place] [address] Care Team Providers Care Glass Carrier Name Role Phone Kristen Quispe MD Primary Care Provider [phone]- [phone] Encounter Details Date Type Department Care Team (Latest Contact Info) Description 08/07/2006 Outpatient Historical [facility] [address] [address] Keon Vogel DO NO ADDRESS ON FILE Hematuria (Primary Dx); Multiple Sclerosis (CMS/HCC); Abdominal Pain, Unspecified Site; Vaccine for influenza Social History Tobacco Use Types Packs/Day Years Used Date Smoking Tobacco: Never Assessed Comments Unknown Sex and Gender Information Value Date Recorded Sex Assigned at Not on file 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
--- OUTSIDE RECORDS SUMMARY | 2025-10-08 13:00 | XMS_ITS | Encounter Summary ---
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 Not dictated. Pulse: 102. BP: 110/88. SUBJECTIVE: I finished the antibiotics, still having some pain in my lower stomach that started Thursday. REVIEW OF SYSTEMS: GI: Occasional constipation, lower abdominal pain comes and goes. GENITOURINARY: Patient was experiencing urgency and frequency of urination, relates that is better. CARDIOVASCULAR: Denies chest pain or paroxysmal nocturnal dyspnea. NEUROMUSCULAR: Has been having some low back pain. RESPIRATORY: Denies chronic cough, asthma, allergy. OBJECTIVE: GENERAL: The patient is alert, accompanied by her . ENT: Tympanic membranes not injected. NOSE: Nasal turbinates within normal limits. MOUTH: Tongue is midline. NECK: Supple. HEART: Regular rate and rhythm. LUNGS: Clear to auscultation. ABDOMEN: Is soft, tender in both lower quadrants. No guarding or rigidity. ASSESSMENT: 1. Abdominal pain and tenderness. 2. Urinary tract infection resolving. 3. Muscular dystrophy. PLAN: 1. Will schedule for CT abdomen and pelvis. 2. UA. 3. If condition should worsen in any way, nausea or vomiting, increased pain, the patient needs to go to the ER for further evaluation and treatment. Keon Vogel D.O. [facility] Electronically Signed by Keon Vogel D.O. 12/24/2007 15:40 , payal Hodgson Document #: [id number] cc: NE REPORTER documented in this encounter Plan of Treatment Not on file documented as of this encounter Visit Diagnoses Not on filedocumented in this encounter Care Teams Fulfillment Coordinator Relationship Specialty Start Date End Date Kristen Quispe MD [address] [address] PCP - General Family Practice 12/19/13 documented as of this encounter
--- OUTSIDE RECORDS SUMMARY | 2025-10-08 13:00 | XMS_ITS | Encounter Summary ---
Author Organization [facility] Address [address] [place] [address] Care Team Providers Care Sap Fico Business Analyst Name Role Phone Kristen Quispe MD Primary Care Provider [phone]- [phone] Encounter Details Date Type Department Care Team (Late st Contact Info) Description 09/15/2007 Outpatient Historical [facility] Medicine [place] [address] [address] Keon Vogel DO NO ADDRESS ON FILE Social History Tobacco Use Types Packs/Day Years Used Date Smoking Tobacco: Never Assessed Comments Unknown Sex and Gender Information Value Date Recorded Sex Assigned at Not on file 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
--- OUTSIDE RECORDS SUMMARY | 2025-10-08 13:00 | XMS_ITS | Encounter Summary ---
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
--- OUTSIDE RECORDS SUMMARY | 2025-10-08 13:00 | XMS_ITS | Encounter Summary ---
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
--- OUTSIDE RECORDS SUMMARY | 2025-10-08 13:00 | XMS_ITS | Clinical Summary ---
Author Organization [facility] Address [address] [place] [address] Care Team Providers Care Audioprosthologist Name Role Phone Kristen Quispe MD Primary Care Provider [phone]- [phone] Allergies Active Allergy Reactions Criticality Noted Date Comments Aspirin Hives High 08/04/2008 Penicillins Anaphylaxis High 08/04/2008 Medications fluticasone (FLONASE) 50 mcg/spray Both Nostril SpSnIndications:Ac kenney sinusitis Administer 2 Sprays in each nostril daily. 1 Bottle 6 03/10/20 12 Active ranitidine (ZANTAC) 150 mg Oral tablet Take 1 Tab by mouth 2 times daily. 60 Tab 5 07/04/20 13 Active loratadine (CLARITIN) 10 mg tabletIndications: Allergic rhinitis Take 1 Tab by mouth daily. 30 Tab 5 08/30/20 13 Active lovastatin (MEVACOR) 20 mg tabletIndications: Other and unspecified hyperlipidemia Take 2 Tabs by mouth Daily LATE. 60 Tab 5 09/27/20 13 Active darifenacin (ENABLEX) 15 mg Tablet Sustained Release 24HR Take 1 Tab by mouth daily. 30 Tab 5 01/21/20 14 Active clopidogrel (PLAVIX) 75 mg Tablet TAKE 1 TABLET BY MOUTH DAILY 30 Tab 5 01/26/20 14 Active ACETAMINOPHEN (TYLENOL ARTHRITIS ORAL) Take 2 Tabs by mouth every 6 hours as needed. Active menthol (BIOFREEZE, MENTHOL,) 4 % Gel Apply to affected area Continuous as needed for Pain (rib and other areas as needed). Active docusate sodium (COLACE) 100 mg capsule Take 200 mg by mouth daily. Active furosemide (LASIX) 20 mg tablet Take 20 mg by mouth daily. Active metFORMIN (GLUCOPHAGE) 1,000 mg tablet Take 1,000 mg by mouth 2 times daily with meals. Active dextromethorphan-g uaiFENesin (MUCINEX DM) 30-600 mg Tablet Sustained Release 12HR Take 1 Tablet by mouth every 12 hours. Active PARoxetine HCl (PAXIL) 10 mg tablet Take 10 mg by mouth daily. Active aluminum - magnesium - simethicone (MYLANTA) 200-200-20 mg/5 mL Suspension Take 15 mL by mouth every 6 hours as needed for Dyspepsia. Active saliva stimulant agents comb.2 (BIOTENE ORALBALANCE) Liquid 1 Squirt by Mouth/Throat route 1 time daily as needed for Discomfort. Active traMADol (ULTRAM) 50 mg tablet Take 50 mg by mouth every 6 hours as needed for Pain. Active promethazine (PHENERGAN) 25 mg tablet Take 25 mg by mouth every 6 hours as needed for Nausea/Emesis. Active simethicone (MYLICON) 80 mg Tablet, Chewable Take 80 mg by mouth 2 times daily as needed. Active Carboxymethylcellu lose Sodium (REFRESH TEARS) 0.5 % solution Administer 2 Drops in both eyes every 4 hours as needed. Active magnesium hydroxide (MILK OF MAGNESIA) 400 mg/5 mL suspension Take 30 mL by mouth 1 time daily as needed for Constipation. Active menthol (HALLS COUGH DROPS) 7.6 mg Lozenge 1 Lozenge by See Admin Instructions route every 2 hours as needed for Sore Throat. Active acetaminophen (TYLENOL) 325 mg tablet Take 650 mg by mouth every 4 hours as needed for Pain or Temperature. Active loperamide (IMODIUM A-D) 2 mg Tablet Take 2 mg by mouth every 3 hours as needed for Diarrhea/Loose Stools. Active Cholecalciferol, Vitamin D3, 2,000 unit Capsule Take 2,000 Units by mouth daily. Active amLODIPine (NORVASC) 10 mg tablet Take 10 mg by mouth daily. Active gabapentin (NEURONTIN) 300 mg capsule Take 1 Capsule (300 mg) by mouth daily at bedtime For 3 days, then take 1 cap bid for 3 days, then take 1 cap tid thereafter.. 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 Hypothyroidism 08/04/2008 HTN (hypertension) 08/04/2008 Generalized anxiety disorder 08/04/2008 Hyperlipidemia 08/04/2008 GERD (gastroesophageal reflux disease) 8 Resolved Problems Problem Noted Date Diagnosed Date Resolved Date Acute maxillary sinusitis 10/25/2015 Amyotrophic lateral sclerosis 09/11/2015 10/26/2015 Muscular dystrophy 05/14/2010 3 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 Immunizations Immunization Administration Dates Next Due (PNEUMOVAX [...] on file 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 Gender Identity Not on file Sexual Orientation Not on file Occupation Industry Job Start Date Job End Date Not on file Not on file Not on file Not on file Last Filed Vital Signs Vital Sign Reading Time Taken Comments Blood Pressure 110/66 03/07/2021 6:05 PM CDT Pulse 68 03/07/2021 6:05 PM CDT Temperature 36.8 C (98.2 F) 03/07/2021 6:05 PM CDT Respiratory Rate 20 03/07/2021 6:05 PM CDT Oxygen Saturation 20% 03/17/2017 8:21 AM CDT Inhaled Oxygen Concentration - - Weight 68.5 kg (151 lb) 03/07/2021 6:05 PM CDT Height 170.2 cm (5' 7 ) 03/07/2021 6:05 PM CDT Body Mass Index 23.65 03/07/2021 6:05 PM CDT Plan of Treatment Health Maintenance Due Date Last Done Comments DIABETES ANNUAL FOOT EXAM 1975 DIABETES ANNUAL RETINAL EXAM 1975 DIABETES MICROALBUMIN ANNUAL SCREEN 1975 DTAP/TDAP/TD VACCINES (1 - Tdap) 1976 Preventative Visit-Managed Medicaid 1976 FIT-DNA Q 3 years 2002 FIT/FOBT Q 1 year 2002 04/19/2001 Flex Sig/CT Colonography Q 5 years 2002 COLORECTAL SCREENING 10/24/2010 10/24/2008 Colorectal Cancer Screening 10/24/2010 BREAST CANCER SCREENING 09/20/2011 09/20/2010, 05/12 ZOSTER VACCINE (2 of 3) 08/26/2012 07/01/2012 PNEUMOCOCCAL VACCINE 50+ YEA RS (2 of 2 - PCV) 07/01/2013 07/01/2012 LDL CHOLESTEROL ANNUAL 06/27/2014 3, 03/25/2012, 11/30/2009, Additional history exists DIABETES HBA1C Q 6 MONTHS 05/28/2020 11/28/2019, 04/2012 OSTEOPOROSIS SCREENING 2022 INFLUENZA VACCINE (#1) 2025 5, 07/01/2012, 12/08/2011, Additional history exists RSV VACCINE (60+ or ) (1 - 1-dose 75+ series) 2032 Procedures Procedure Name Priority Date/Time Associated Diagnosis Comments HEMOGLOBIN A1C Routine 11/28/2019 5:29 AM ROLL ICER MACHINE Diabetic neuropathy, type I diabetes mellitus (CMS/HCC) Essential hypertension LIPID PANEL Routine 06/27/2013 1:51 PM CDT Other and unspecified hyperlipidemia HTN (hypertension) MAMMO SCREENING BILAT Routine 09/20/2010 2:47 PM ROLL ICER MACHINE Screening mammogram FL COLONOSCOPY FLX DX W/COLLJ SPEC WHEN PFRMD Routine 10/24/2008 from Last 3 Months or Most Recently Relevant to Health Maintenance Results * (ABNORMAL) HEMOGLOBIN A1C (11/28/2019 5:29 AM ROLL ICER MACHINE) HEMOGLOBIN A1C 5.9(H) <=5.6 % 11/29/2019 11:15 AM ROLL ICER MACHINE [facility] EST. AVG GLUCOSE, A1C 123 mg/dL 11/29/2019 11:15 AM [facility] Blood Collection / Unknown 11/28/2019 5:29 AM ROLL ICER MACHINE 11/28/2019 4:51 PM ROLL ICER MACHINE Narrative [facility] - 11/29/2019 11:15 AM ROLL ICER MACHINE HGB A1C INTERPRETATION NORMAL: <5.7% PRE-DIABETES: 5.7 - 6.4% DIABETES: 6.5% OR GREATER us Drew Puckett MD CHEMISTRY ORDERABLES F inal Result [facility] CLIA# [id number] [address] [place] [address] * (ABNORMAL) LIPID PANEL (06/27/2013 1:51 PM CDT) CHOLESTEROL 165 100 - 200 MG/DL [facility] TRIGLYCERIDE 128 0 - 150 MG/DL [facility] HDL 56 40 - 60 MG/DL [facility] LDL CALCULATED 83 58 - 100 MG/DL [facility] Comment: CALCULATED LDL REFERENCE: < 100 Optimal 100 - 129 Near Optimal 130 - 159 Borderline High > 160 High Risk CHOL/HDL RATIO 2.95(L) 3.27 - 4.44 RATIO [facility] Blood specimen (specimen) 06/27/2013 1:51 PM CDT 06/27/2013 1:52 PM CDT Merlyn Macias SENIOR CREDIT ANALYST CHEMISTRY ORDERAB LES Final Result INTERFACE SYSTEM Refer to clinic/hospital department [facility] CLIA# [id number] [address] [place] [address] * MAMMO SCREENING BILAT (09/20/2010 2:47 PM ROLL ICER MACHINE) Anatomical Region Laterality Modality Breast Bilateral Mammography Narrative 09/24/2010 12:30 PM ROLL ICER MACHINE Bilateral Mammogram Reason for Exam: Screening Comparison: [...] significant new findings since the prior mammogram(s). 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
--- OUTSIDE RECORDS SUMMARY | 2025-10-08 13:00 | XMS_ITS | Encounter Summary ---
Author Organization [facility] Address [address] [place] [address] Care Team Providers Care Curatorial Specialist Name Role Phone Kristen Quispe MD Primary Care Provider Encounter Details Date Type Department Care Team (Latest Contact Info) Description 04/15/2007 Outpatient Historical [facility] Medicine [place] [address] [address] Kami Cortez, MANAGEMENT ARCHITECT [address] [place] [address] Unspecified Essential Hypertension (Primary Dx); Acute Upper Respiratory Infections of Unspecified Site Social History Tobacco Use Types Packs/Day Years Used Date Smoking Tobacco: Never Assessed Comments Unknown Sex and Gender Information Value Date Recorded Sex Assigned at Not on file 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
--- OUTSIDE RECORDS SUMMARY | 2025-10-08 13:00 | XMS_ITS | Encounter Summary ---
Author Organization [facility] Address [address] [place] [address] Care Team Providers Care Behavioral Interventionist Name Role Phone Kristen Quispe MD Primary Care Provider +1- [phone] Encounter Details Date Type Department Care Team (Latest Contact Info) Description 07/21/2006 Outpatient Historical [facility] [address] [address] Suma Lees NP NO ADDRESS ON FILE Urinary Tract Infection, Site not Specified (Primary Dx); Hematuria; Acute Pharyngitis; Elevated Blood Pressure Reading without Diagnosis of Hypertension Social History Tobacco Use Types Packs/Day Years Used Date Smoking Tobacco: Never Assessed Comments Unknown Sex and Gender Information Value Date Recorded Sex Assigned at Not on file 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
--- OUTSIDE RECORDS SUMMARY | 2025-10-08 13:00 | XMS_ITS | Data Portability ---
Author Organization [facility] Oracio Doshi [facility] Address [address] [address] Assessment No assessment recorded. Plan of Treatment [...] Modified By Organization Details Last Modified Time 05/24/2025 [id number] tx with efinaconazole x 48 weeks. [email or web address] Not available 05/24/2025 15:37:17 06/21/2025 [id number] Blood pressure controlled. Sugars mostly controlled. [email or web address] Not available 06/21/2025 13:57:03 07/19/2025 [id number] C/o dysuria. Jorgito altamirano check UA Not available 07/19/2025 14:07:07 09/06/2025 [id number] Continues to follow with wound care. C/o pain with urination, will get UA. [email or web address] Not available 09/06/2025 14:18:51 09/27/2025 [id number] No changes made, doing well. Mood good. Not available 10/02/2025 15:06:12 Reason for Referral None Reported. Problems Name Problem SNOMED Code Status Onset Date Resolution Date Notes Provider Name and Address Organization Details Recorded Time Essential hypertensi on 33551536 Active 2022 Lambert English DO [address] [place], [address] , [facility] 08:36:04 Muscular dystrophy 85906814 Active 2022 Lambert English DO [address] [place] [address], [phone] , [facility] 3 08:36:06 Diabetes mellitus 90474425 Active 2022 Lambert English DO [address] [place] [address], [phone] , [facility] 3 08:36:08 Vaginal irritation 305859806 Active 2022 YARELIS mckinnon, [facility] 3 13:01:17 Constipati on 20973995 Active 2022 YARELIS PATEL [facility] 3 11:19:04 Dizziness 184697964 Active 2022 YARELIS PATEL [facility] 3 13:34:41 Mixed anxiety and depressive disorder 137768303 Active 2022 YARELIS PATEL [facility] 3 15:54:47 Cellulitis of right hip 2239555646225 9106 Active 2023 YARELIS PATEL [facility] 4 10:17:16 Onychomyco sis 704971384 Active 2024 YARELIS PATEL [facility] 5 15:36:59 Problem Notes None recorded. Medical Equipment None Reported. Allergies Allergen ID Allergen Name Allergen Category Reaction Reaction Severity Criticality Documentation Date Start Date Code Code System Note Provider Name and Address Organization Details Recorded Time 30253 penicilli n G potassium medicatio n Not available Not available Not available 05/16/202393066 3 RxNorm Comme nt: Recor ded 12/04 11:50 AM by Flori mari RN, Offic e Visit ; Promo olive; Signi fican ce: *; Reaso n: Drug aller gy; ; Not Available [facility] 3 02:23:56 06185 aspirin medicatio n Not available Not available Not available 05/16/2023 1191 RxNorm Comme nt: Recor ded 12/04 11:50 AM by Flori mari RN, Offic e Visit ; Promo olive; Sherita saravia ce: *; Reaso n: Drug aller gy; ; Not Available [facility] 3 02:23:56 12174 Product containin g penicilli n (product) medicatio n anaphylax is Not available [facility] 09/06/20252007 43254 8001 SNOMED Not Available fischer - External Data Service - prod 5 14:05:26 Medications Name Sig Start Date Stop Date Status Note LastModified by Organization Details LastModified Time Protonix 40 mg tablet,maria guadalupe yed release daily 2021 active recorded, not sent to pharmacy.; 05298; Recorded 10/12/2022 12:20PM by Yarelis Patel RN [...] 2021 active recorded, not sent to pharmacy.; 16200; Recorded 07/23/2022 10:50AM by Yarelis Patel RN (Authorize d through Lambert English DO), Office Visit; Refill Quantity: 0; Not Available Not Available Not Available Januvia 100 mg tablet daily active 0; Recorded 12/04/2022 11:50AM by Yarelis Patel RN, Office Visit; Not Available Not Available Not Available amlodipine besylate (bulk) daily 2021 active *dose decrease* recorded, not sent to pharmacy.; 97242; Recorded 03/27/2022 12:44PM by Yarelis Patel RN [...] Details Last Updated DateTime 5 170.18 cm 22.2 kg/m2 37626.1 2 g 93 /min 18 /min 98.4 [degF] 97 % 138/70 mm[Hg] [facility] 5 15:31:51 Date Recorded Body height Body mass index (BMI) Body weight Heart rate Respiratory rate Body temperature Oxygen saturation Systolic And Diastolic Provider Name and Address Organization Details Last Updated DateTime 5 170.18 cm 22.2 kg/m2 15271.1 2 g 87 /min 18 /min 98.2 [degF] 98 % 110/64 mm[Hg] [facility] 5 13:55:19 Date Recorded Body height Body mass index (BMI) Body weight Heart rate Respiratory rate Body temperature Oxygen saturation Systolic And Diastolic Provider Name and Address Organization Details Last Updated DateTime 5 170.18 cm 21.3 kg/m2 84849.5 6 g 87 /min 20 /min 98.3 [degF] 99 % 117/68 mm[Hg] YARELIS [facility] 5 14:02:51 Date Recorded Body height Body mass index (BMI) Body weight Heart rate Respiratory rate Body temperature Oxygen saturation Systolic And Diastolic Provider Name and Address Organization Details Last Updated DateTime 5 170.18 cm 21.8 kg/m2 00083.3 4 g 78 /min 20 /min 97.8 [degF] 96 % 146/72 mm[Hg] YARELIS [facility] 5 14:16:14 Date Recorded Body height Body mass index (BMI) Body weight Heart rate Respiratory rate Body temperature Oxygen saturation Systolic And Diastolic Provider Name and Address Organization Details Last Updated DateTime 5 170.18 cm 21.8 kg/m2 71900.3 4 g 81 /min 18 /min 97.8 [degF] 94 % 104/67 mm[Hg] YARELIS PATEL [facility] 5 15:02:39 Social History Question Answer Notes LastModified by Songza Details LastModified Time Tobacco Smoking Status Unknown If Ever Smoked YARELIS PATEL pratibha [facility] 01/15/2023 11:50:18 Have You Had Direct Contact, Or Contact During Intimacy, With Monkeypox Rash, Scabs, Or Body Fluids From A Person With Monkeypox? No [email or web address] Information not available 01/15/2023 Have You Recently Traveled Abroad? No Information not available 01/15/2023 Do You Have Difficulty Walking Or Climbing Stairs? Yes [email or web address] Information not available 02/12/2023 Sex: Unknown Functional Status Question Answer Note LastModified by Songza Details LastModified Time Are you able to walk independently without assistance or assistive devices? NOWALK [email or web address] Information not available 01/15/2023 Do you have difficulty doing errands alone? Yes [email or web address] Information not available 02/12/2023 Are you able to care for yourself independently? No [email or web address] Information not available 01/15/2023 Do you have difficulty dressing, bathing, grooming, or toileting? Yes [email or web address] Information not available 02/12/2023 Mental Status None recorded. Family History Nothing Reported. Medical History No medical history recorded. Gynecological HistoryNo gynecological history recorded. Obstetrics History GPAL:G 0 P 0 0 0 0 Immunizations Vaccine Type Date Status Note Provider Nam e and Address Organization Details Recorded Time COVID-19, mRNA, LNP-S, PF, 100 mcg/0.5mL dose or 50 mcg/0.25mL dose 10/23/2020 completed Not Available [facility] 5 13:23:30 COVID-19, mRNA, LNP-S, PF, 100 mcg/0.5mL dose or 50 mcg/0.25mL dose 11/20/2020 completed Not Available [facility] 5 13:23:30 COVID-19, mRNA, LNP-S, PF, 100 mcg/0.5mL dose or 50 mcg/0.25mL dose 07/04/2022 completed Not Available [facility] 13:23:30 Past Encounters Encounter ID Performer Location Encounter Start Date Encounter Closed Date Diagnosis/Indication Diagnosis SNOMED-CT Code Diagnosis ICD10 Code Diagnosis IMO Codes Diagnosis Note [id number] Lambert English DO [facility] ([facility]) [address] [place], [place] [address] 01/15/2023 11:15:01 01/23/2023 19:40:08 Diabetes mellitus 61279223 E11.9 Muscular dystrophy 66040 009 G71.00 Essential hypertension 43807492 I10 [id number] Lambert English DO [facility] ([facility]) [address] [place], [place] [address] 02/12/2023 09:01:17 02/18/2023 15:57:47 Vaginal irritation 639899001 N89.8 [id number] Lambert English DO [facility] ([facility]) [address] [place], [place] [address] 03/05/2023 07:59:49 03/05/2023 20:36:21 Muscular dystrophy 41714894 G71.00 Diabetes mellitus 142259 09 E11.9 Essential hypertension 52193001 I10 Constipation 24634793 K5 9.00 [id number] Lambert English DO [facility] ([facility]) [address] [place], [place] [address] 04/09/2023 09:20:48 04/20/2023 13:15:30 Essential hypertension 08390617 I10 Diabetes mellitus 984207 09 E11.9 Pain of ear 426594047 H9 2.09 [id number] Lambert English DO [facility] ([facility]) [address] [place] [address] 05/21/2023 07:52:08 06/01/2023 22:22:51 Diabetes mellitus 40240147 E11.9 Essential hypertension 41282072 I10 Muscular dystrophy 24510 009 G71.00 [id number] Lambert English DO [facility] ([facility]) [address] [place], [place] [address] 06/24/2023 11:12:22 07/02/2023 17:13:33 Diabetes mellitus 00782929 E11.9 Muscular dystrophy 86334 009 G71.00 Pain of ear 090934474 H9 2.09 [id number] Lambert English [facility] ([facility]) [address] [place], [place] [address] 07/29/2023 09:58:02 08/11/2023 12:14:15 Diabetes mellitus 66024809 E11.9 Essential hypertension 19629024 I10 Dizziness 227091615 R42 [id number] Lambert English DO [facility] ([facility]) [address] [place] [address] 5 08/27/2023 12:48:57 09/06/2023 20:18:52 Vaginal irritation 136587066 N89.8 [id number] Lambert English [facility] ([facility]) [address] [place] [address] 5 09/16/2023 08:17:07 09/21/2023 16:15:50 Essential hypertension 70583524 I10 Diabetes mellitus 503355 09 E11.9 Dizziness 210898132 R42 [id number] Lambert English DO [facility] ([facility]) [address] [place], [place] [address] 10/07/2023 08:41:55 10/25/2023 20:45:25 Essential hypertension 57249971 I10 Muscular dystrophy 73836 009 G71.00 Mixed anxi ety and depressive disorder 621479050 F41.8 [id number] Lambert English [facility] ([facility]) [address] [place], [place] [address] 10/21/2023 10:23:34 10/23/2023 23:03:55 Mixed anxiety and depressive disorder 567898295 F41.8 [id number] Lambert English [facility] ([facility]) [address] [place], [place] [address] 12/09/2023 07:48:23 12/14/2023 14:14:44 Mixed anxiety and depressive disorder 953030896 F41.8 Diabetes mellitus 351681 09 E11.9 Essential hypertension 86502345 I10 Muscular dystrophy 66976 009 G71.00 [id number] Lambert English DO [facility] ([facility]) [address] [place], [place] [address] 01/06/2024 08:04:29 01/06/2024 18:01:25 Mixed anxiety and depressive disorder 679336495 F41.8 Diabetes mellitus 373686 09 E11.9 Open wound of skin 62758 28116 01 T14.8XXA [id number] Lambert English DO [facility] ([facility]) [address] [place], [place] [address] 01/27/2024 12:19:31 02/01/2024 17:08:49 Mixed anxiety and depressive disorder 974214823 F41.8 Diabetes mellitus 338173 09 E11.9 Essential hypertension 67787387 I10 [id number] Lambert English DO [facility] ([facility]) [address] [place] [address] 02/24/2024 09:34:36 02/29/2024 11:09:34 Mixed anxiety and depressive disorder 009466101 F41.8 Essential hypertension 50389668 I10 Diabetes mellitus 979591 09 E11.9 [id number] Lambert English DO [facility] ([facility]) [address] [place] [address] 04/13/2024 08:31:12 04/25/2024 13:02:18 Mixed anxiety and depressive disorder 959247549 F41.8 Essential hypertension 09412652 I10 Muscular dystrophy 51362 009 G71.00 [id number] Lambert English DO [facility] ([facility]) [address] [place] [address] 05/18/2024 14:26:15 05/24/2024 06:47:08 Mixed anxiety and depressive disorder 270474607 F41.8 Muscular dystrophy 55276 009 G71.00 Diabetes mellitus 635564 09 E11.9 [id number] Lambert English DO [facility] ([facility]) [address] [place] [id number] 06/01/2024 07:53:07 06/01/2024 16:22:58 Muscular dystrophy 74504339 G71.00 Cellulitis of right hip 2918843468 9924600 L03.333 [id number] Lambert English [facility]) [address] [place] [address] 06/07/2024 15:55:13 07/17/2024 21:58:42 Cellulitis of right hip 8915806812 7401886 L03.882 [id number] Lambert Tameka [facility]) [address] [place] [phone] 06/22/2024 08:02:46 06/22/2024 16:53:44 Mixed anxiety and depressive disorder 915350450 F41.8 [id number] Lambert English [facility]) [address] [place] [phone] 07/20/2024 13:24:37 07/25/2024 14:27:53 Mixed anxiety and depressive disorder 465661024 F41.8 Chronic pain 84370149 G8 9.29 [id number] Lambert Tameka [facility]) [address] [place] [phone] 08/31/2024 13:07:15 08/31/2024 16:38:22 Hospital inpatient stay within past 30 days 3994526808 106 Z76.89 Acute hemo rrhagic cystitis 85548396 N30.01 Bacteremia caused by Gram-positive bacteria 4213019180 01 A41.89 Septic shock 10460505 R6 5.21 Cirrhosis of liver 28561 007 K74.60 Diabetes mellitus 559599 09 E11.9 Essential hypertension 08267964 I10 Mixed anxi ety and depressive disorder 577650992 F41.8 Muscular dystrophy 97650 009 G71.00 [id number] Lambert English [facility]) [address] [place] [phone] 10/05/2024 15:00:42 10/10/2024 17:42:47 Mixed anxiety and depressive disorder 694166352 F41.8 Essential hypertension 35035000 I10 Diabetes mellitus 329320 09 E11.9 [id number] Lambert English DO [facility] ([facility]) [address] [place] [address] 11/16/2024 08:10:27 11/16/2024 15:48:50 Mixed anxiety and depressive disorder 458709892 F41.8 Essential hypertension 14677309 I10 Muscular dystrophy 59524 009 G71.00 [id number] Lambert English DO [facility] ([facility]) [address] [place] [id number] 12/14/2024 08:25:45 12/19/2024 09:00:36 Mixed anxiety and depressive disorder 238568263 F41.8 Essential hypertension 14056368 I10 Diabetes mellitus 838711 09 E11.9 Muscular dystrophy 61039 009 G71.00 [id number] Lambert English DO [facility] ([facility]) [address] [place], [place] [address] 01/04/2025 08:19:58 01/09/2025 11:34:09 Mixed anxiety and depressive disorder 921746448 F41.8 Essential hypertension 59066568 I10 Diabetes mellitus 580851 09 E11.9 [id number] Lambert English [facility] ([facility]) [address] [place] [address] 02/08/2025 08:14:16 02/10/2025 07:17:21 Mixed anxiety and depressive disorder 664383774 F41.8 Essential hypertension 02429459 I10 Diabetes mellitus 296216 09 E11.9 [id number] Lambert English [facility] ([facility]) [address] [place] [address] 03/22/2025 09:34:51 03/27/2025 13:31:22 Mixed anxiety and depressive disorder 790284664 F41.8 Essential hypertension 62717434 I10 Muscular dystrophy 79562 009 G71.00 [id number] Lambert English [facility] ([facility]) [address] [place] [id number] 05/03/2025 09:15:21 05/09/2025 08:29:42 Essential hypertension 30873599 I10 Diabetes mellitus 099410 09 E11.9 Muscular dystrophy 45092 009 G71.00 [id number] Lambert English DO [facility] ([facility]) [address] [place] [address] 05/24/2025 13:00:18 05/31/2025 07:48:43 Onychomycosis 083311088 B35.1 76956 [id number] Lambert English DO [facility] ([facility]) [address] [place] [address] 06/21/2025 12:20:02 06/26/2025 11:54:17 Mixed anxiety and depressive disorder 155799355 F41.8 Essential hypertension 43211030 I10 Diabetes mellitus 662859 09 E11.9 [id number] Lambert English DO [facility] ([facility]) [address] [place] [id number] 07/19/2025 11:30:10 07/25/2025 07:52:36 Diabetes mellitus 64377992 E11.9 Muscular dystrophy 60771 009 G71.00 Essential hypertension 63590251 I10 Dizziness 190440994 R42 Mixed anxi ety and depressive disorder 585045399 F41.8 Hypothyroidism 66659390 E03.9 [id number] [facility] 55746777 R1 6.1 7033356 Long QT syndrome 4244954 I45.81 [id number] Hypertensi ve heart disease 25132985 I11.9 288344 Peripheral vascular disease 709157622 I73.9 [id number] Lambert English DO [facility] ([facility]) [address] [place] [address] 09/06/2025 14:04:46 09/11/2025 09:11:09 Mixed anxiety and depressive disorder 572017859 F41.8 Essential hypertension 95706127 I10 Diabetes mellitus 181875 09 E11.9 Muscular dystrophy 93442 009 G71.00 [id number] Lambert English [facility] ([facility]) [address] [place] [id number] 09/27/2025 13:23:14 10/06/2025 12:19:03 Mixed anxiety and depressive disorder 451296899 F41.8 Essential hypertension 30196076 I10 Diabetes mellitus 678939 09 E11.9 Muscular dystrophy 43159 009 G71.00 Health Concerns Section Related Observation LastModified by Organization Detai ls LastModified Time None Recorded Concern Status LastModified by Organization Details LastModified Time None Recorded Advance Directives Directive None Recorded Payers Insurance Date Sequence Insurance Name Policy Number Policy Frank Covered Member ID Frank Member ID Guarantor Name 09/27/2025 [place] [facility] Yuki Sales [id number] Yuki [employer] 09/27/2025 1 [place] Yuki Sales [id number] [employer] Notes Date Note Type Note Provider Name and Address Organization Details Recorded Time 5 text/html DiabetesReported by CaregiverHPIFor duration, caregiver reportschronic. For control, caregiver reportsusually well controlled. For compliance, caregiver reportscompliant with medicationsandcompliant with follow-up visits. For associated symptoms, caregiver reportsno weight gainandno confusion.ROS as noted in the HPI staff reports fungus on fingernails. Lambert English DO [address] [place] [address], [phone], [facility] 05/26/2025 14:08:06 5 text/html DiabetesReported by CaregiverHPIFor duration, caregiver reportschronic. For control, caregiver reportsusually well controlled. For compliance, caregiver reportscompliant with medicationsandcompliant with follow-up visits. For associated symptoms, caregiver reportsno weight gainandno confusion.ROS as noted in the HPI no complaints per pt. Lambert English DO [address] [place] [address], [phone], [facility] 06/21/2025 15:34:16 5 text/html DiabetesReported by CaregiverHPIFor duration, caregiver reportschronic. For control, caregiver reportsusually well controlled. For compliance, caregiver reportscompliant with medicationsandcompliant with follow-up visits. For associated symptoms, caregiver reportsno weight gainandno confusion.ROS as noted in the HPI c/o dysuria. Lambert English DO [address] [place] [address], [phone], [facility] 07/19/2025 15:19:12 5 text/html DiabetesReported by CaregiverHPIFor duration, caregiver reportschronic. For control, caregiver reportsusually well controlled. For compliance, caregiver reportscompliant with medicationsandcompliant with follow-up visits. For associated symptoms, caregiver reportsno weight gainandno confusion.ROS as noted in the HPI patient c/o dysuria. Lambert English DO [address] [place] [address], [phone], [facility] 09/10/2025 15:07:44 5 text/html DiabetesReported by CaregiverHPIFor duration, caregiver reportschronic. For control, caregiver reportsusually well controlled. For compliance, caregiver reportscompliant with medicationsandcompliant with follow-up visits. For associated symptoms, caregiver reportsno weight gainandno confusion.ROS as noted in the [facility] no complaints Lambert English DO [address] [place] [address], [phone], [facility] 10/05/2025 05:17:46 OBGyn Episode No OBEpisode recorded.
--- OUTSIDE RECORDS SUMMARY | 2025-10-08 13:00 | XMS_ITS | Encounter Summary ---
Author Organization [facility] Address [address] [place] [address] Care Team Providers Care Logging Tractor Operator Swamp Name Role Phone Kristen Quispe MD Primary Care Provider +1- [phone] Encounter Details Date Type Department Care Team (Late st Contact Info) Description 08/13/2007 Outpatient Historical [facility] [address] [place] [address] Qasim Aragon MD [address] [place] [address] [id number] Social History Tobacco Use Types Packs/Day Years Used Date Smoking Tobacco: Never Assessed Comments Unknown Sex and Gender Information Value Date Recorded Sex Assigned at Not on file 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 History is headache, 784, hereditary neuropathy, balance problems and right ear pain and history ofhead injury. 15 ml of Optimark were given. No comparison study is available. Corpus callosum and pituitary gland show no significant abnormality. The diffusion-weighted imagesshow no significant abnormality. Mild, nonspecific cerebral white matter disease is noted inparaventricular locations and with several small lesions in the cerebral white matter bilaterally. Additionally, there is abnormal high T2 and FLAIR signal intensity seen involving the middlecerebellar peduncles bilaterally. Paranasal sinuses are clear. The postcontrast images of the brainshow no abnormal enhancement. Impression: Mildly prominent white matter disease given the patient's age. Additionally, abnormalsignal intensity within the middle cerebellar peduncles bilaterally is unusual. This does notappear to be associated with atrophy. This does not have the typical appearance of a demyelinatingprocess. A metabolic disorder is a possibility. Clinical correlation is needed. - Dictated By: Matthew Dunaway M.D. Electronically Signed By: Matthew Dunaway M.D. Date Signed: 08/14/07 Procedure Note 09/09/2009 Multiplanar imaging of the brain was performed with and without IVgadolinium. History is headache, 784, hereditary neuropathy, balance problems andright ear pain and history ofhead injury. 15 ml of Optimark were given. No comparison study is available. Corpus callosum and pituitary gland show no significant abnormality. Thediffusion-weighted imagesshow no significant abnormality. Mild, nonspecific cerebral white matter diseaseis noted inparaventricular locations and with several small lesions in the cerebral white matterbilaterally. Additionally, there is abnormal high T2 and FLAIR signal intensity seeninvolving the middlecerebellar peduncles bilaterally. Paranasal sinuses are clear. The postcontrastimages of the brainshow no abnormal enhancement. Impression: Mildly prominent white matter disease given the patient's age.Additionally, abnormalsignal intensity within the middle cerebellar peduncles bilaterally is unusual. This doesnotappear to be associated with atrophy. This does not have the typical appearance of ademyelinatingprocess. A metabolic disorder is a possibility. Clinical correlation is needed. - Dictated By: Matthew Dunaway M.D. Electronically Signed By: Matthew Dunaway M.D. Date Signed: 08/14/07 us Qasim Aragon MD MR ORDERABLES Final Resul t documented in this encounter Visit Diagnoses Not on filedocumented in this encounter Care Teams Logging Tractor Operator Swamp Relationship Specialty Start Date End Date Kristen Quispe MD [address] [address] PCP - General Family Practice 12/19/13 documented as of this encounter
--- OUTSIDE RECORDS SUMMARY | 2025-10-08 13:01 | XMS_ITS | Encounter Summary ---
Author Organization [facility] Address [address] [place] [address] Care Team Providers Care Prescriptionist Name Role Phone Kristen Quispe MD Primary Care Provider +1- [phone] Encounter Details Date Type Department Care Team (Latest Contact Info) Description 09/10/2005 Outpatient Historical [facility] [address] [address] Qasim Wyman PA NO ADDRESS ON FILE URIN TRACT INFECTION NOS (Primary Dx); ACUTE URI NOS; ABDOMINAL PAIN UNSPEC SITE Social History Tobacco Use Types Packs/Day Years Used Date Smoking Tobacco: Never Assessed Comments Unknown Sex and Gender Information Value Date Recorded Sex Assigned at Not on file 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
--- OUTSIDE RECORDS SUMMARY | 2025-10-08 13:01 | XMS_ITS | Encounter Summary ---
Author Organization [facility] Address [address] [place] [address] Care Team Providers Care Compressor Stations Superintendent Name Role Phone Kristen Quispe MD Primary Care Provider +1- [phone] Encounter Details Date Type Department Care Team (Latest Contact Info) Description 08/04/[address] [facility] [place] [address] [address] Isabel Newby MD NO ADDRESS ON FILE Backache, unspecified (Primary Dx); Unspecified urinary incontinence Social History Tobacco Use Types Packs/Day Years Used Date Smoking Tobacco: Never Assessed Comments Unknown Sex and Gender Information Value Date Recorded Sex Assigned at Not on file Legal Sex Female 4:06 AM CRAYON SAWYER Gender Identity Not on file Sexual Orientation Not on file documented as of this encounter Plan of Treatment Not on file documented as of this encounter Visit Diagnoses Diagnosis Backache, unspecified- Primary Unspecified urinary incontinence documented in this encounter Care Teams Compressor Stations Superintendent Relationship Specialty Start Date End Date Kristen Quispe MD [address] [phone] PCP - General Family Practice 12/19/13 documented as of this encounter
--- OUTSIDE RECORDS SUMMARY | 2025-10-08 13:01 | XMS_ITS | Encounter Summary ---
Author Organization [facility] Address [address] [place] [address] Care Team Providers Care Special Warfare Combatant Crewman Name Role Phone Kristen Quispe MD Primary Care Provider Encounter Details Date Type Department Care Team (Latest Contact Info) Description 05/15/2005 Outpatient Historical [facility] [address] [address] Kami Cortez, BROADCAST FIELD SUPERVISOR [address] [place] [address] ACUTE URI NOS (Primary Dx); ALLERGIC RHINITIS NOS; URINARY FREQUENCY Social History Tobacco Use Types Packs/Day Years Used Date Smoking Tobacco: Never Assessed Comments Unknown Sex and Gender Information Value Date Recorded Sex Assigned at Not on file Legal Sex Female 4:06 AM CONCRETE 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
--- OUTSIDE RECORDS SUMMARY | 2025-10-08 13:01 | XMS_ITS | Encounter Summary ---
Author Organization [facility] Address [address] [place] [address] Care Team Providers Care Pool Table Operator Name Role Phone Kristen Quispe MD Primary Care Provider +1- [phone] Encounter Details Date Type Department Care Team (Latest Contact Info) Description 05/31/2002 Outpatient Historical [facility] [address] [address] Keon Vogel DO NO ADDRESS ON FILE VAGINITIS NOS (Primary Dx); Hered prog musc dystrphy; ACUTE CYSTITIS; Gynecologic examination Social History Tobacco Use Types Packs/Day Years Used Date Smoking Tobacco: Never Assessed Comments Unknown Sex and Gender Information Value Date Recorded Sex Assigned at Not on file Legal Sex Female 4:06 AM DIGITAL MEDIA SPECIALIST Gender Identity Not on file Sexual Orientation Not on file documented as of this encounter Plan of Treatment Not on file documented as of this encounter Visit Diagnoses Diagnosis Vaginitis and vulvovaginitis, unspecified- Primary 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
--- OUTSIDE RECORDS SUMMARY | 2025-10-08 13:01 | XMS_ITS | Encounter Summary ---
Author Organization [facility] Address [address] [place] [address] Care Team Providers Care Senior Insight Manager Name Role Phone Kristen Quispe MD Primary Care Provider Encounter Details Date Type Department Care Team (Latest Contact Info) Description 02/17/2003 Outpatient Historical [facility] [address] [address] Rickey Blood MD [address] [address] URIN TRACT INFECTION NOS (Primary Dx); ACUTE SINUSITIS NOS; DEPRESSIVE DISORDER NEC Social History Tobacco Use Types Packs/Day Years Used Date Smoking Tobacco: Never Assessed Comments Unknown Sex and Gender Information Value Date Recorded Sex Assigned at Not on file Legal Sex Female 4:06 AM STEWARD/STEWARDESS 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
--- OUTSIDE RECORDS SUMMARY | 2025-10-08 13:01 | XMS_ITS | Encounter Summary ---
Author Organization [facility] Address [address] [place] [address] Care Team Providers Care Mobile Application Development Lead Name Role Phone Kristen Quispe MD Primary Care Provider +1- [phone] Encounter Details Date Type Department Care Team (Latest Contact Info) Description 05/10/2004 Outpatient Historical [facility] [address] [address] Keon Vogel DO NO ADDRESS ON FILE Hered prog musc dystrphy (Primary Dx); ABDOMINAL PAIN UNSPEC SITE; HEADACHE; DEPRESSIVE DISORDER NEC Social History Tobacco Use Types Packs/Day Years Used Date Smoking Tobacco: Never Assessed Comments Unknown Sex and Gender Information Value Date Recorded Sex Assigned at Not on file Legal Sex Female 4:06 AM VP GLOBAL Gender Identity Not on file Sexual Orientation Not on file documented as of this encounter Plan of Treatment Not on file documented as of this encounter Visit Diagnoses Diagnosis Hered prog musc dystrphy- Primary Hereditary progressive muscular dystrophy Abdominal pain, unspecified site Headache(784.0) Headache Depressive disorder, not elsewhere classified documented in this encounter Care Teams Mobile Application Development Lead Relationship Specialty Start Date End Date Kristen Quispe MD [address] [address] PCP - General Family Practice 12/19/13 documented as of this encounter
--- OUTSIDE RECORDS SUMMARY | 2025-10-08 13:01 | XMS_ITS | Encounter Summary ---
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
--- OUTSIDE RECORDS SUMMARY | 2025-10-08 13:01 | XMS_ITS | Encounter Summary ---
Author Organization [facility] Address [address] [place] [address] Care Team Providers Care Woodwinds Teacher Name Role Phone Kristen Quispe MD Primary Care Provider +1- [phone] Encounter Details Date Type Department Care Team (Late st Contact Info) Description 05/11/2004 Outpatient Historical [facility] FY06 Keon Vogel, NO ADDRESS ON FILE Social History Tobacco Use Types Packs/Day Years Used Date Smoking Tobacco: Never Assessed Comments Unknown Sex and Gender Information Value Date Recorded Sex Assigned at Not on file Legal Sex Female 4:06 AM OR NURSE MANAGER Gender Identity Not on file Sexual Orientation Not on file documented as of this encounter Plan of Treatment Not on file documented as of this encounter Visit Diagnoses Not on filedocumented in this encounter Care Teams Woodwinds Teacher Relationship Specialty Start Date End Date Kristen Quispe MD [address] [facility] [address] [place] [phone] PCP - General Family Practice 12/19/13 documented as of this encounter
--- OUTSIDE RECORDS SUMMARY | 2025-10-08 13:01 | XMS_ITS | Encounter Summary ---
Author Organization [facility] Address [address] [place] [address] Care Team Providers Care Program Manager Rn Name Role Phone Kristen Quispe MD Primary Care Provider +1- [phone] Encounter Details Date Type Department Care Team (Latest Contact Info) Description 05/31/2001 Outpatient Historical [facility] [place] [address] [address] Josh Ordoñez MD Nonspecific abnormal finding in stool contents (Primary Dx) Social History Tobacco Use Types Packs/Day Years Used Date Smoking Tobacco: Never Assessed Comments Unknown Sex and Gender Information Value Date Recorded Sex Assigned at Not on file Legal Sex Female 4:06 AM PUBLIC WELFARE DIRECTOR Gender Identity Not on file Sexual Orientation Not on file documented as of this encounter Plan of Treatment Not on file documented as of this encounter Visit Diagnoses Diagnosis Nonspecific abnormal finding in stool contents- Primary documented in this encounter Care Teams Program Manager Rn Relationship Specialty Start Date End Date Kristen Quispe MD [address] [phone] PCP - General Family Practice 12/19/13 documented as of this encounter
--- OUTSIDE RECORDS SUMMARY | 2025-10-08 13:01 | XMS_ITS | Encounter Summary ---
Author Organization [facility] Address [address] [place] [address] Care Team Providers Care Slate Handler Name Role Phone Kristen Quispe MD Primary Care Provider +1- [phone] Encounter Details Date Type Department Care Team (Latest Contact Info) Description 01/02/2004 Outpatient Historical [facility] [place] [address] [address] Rickey Blood MD [address] [address] URIN TRACT INFECTION NOS (Primary Dx); OTITIS MEDIA NOS Social History Tobacco Use Types Packs/Day Years Used Date Smoking Tobacco: Never Assessed Comments Unknown Sex and Gender Information Value Date Recorded Sex Assigned at Not on file Legal Sex Female 4:06 AM TAMALE MAKER Gender Identity Not on file Sexual Orientation Not on file documented as of this encounter Plan of Treatment Not on file documented as of this encounter Visit Diagnoses Diagnosis Urinary tract infection, site not specified- Primary Unspecified otitis media documented in this encounter Care Teams Slate Handler Relationship Specialty Start Date End Date Kristen uQispe MD [address] [address] PCP - General Family Practice 12/19/13 documented as of this encounter
--- OUTSIDE RECORDS SUMMARY | 2025-10-08 13:01 | XMS_ITS | Encounter Summary ---
Author Organization [facility] Address [address] [place] [address] Care Team Providers Care Communications Programmer Name Role Phone Kristen Quispe MD Primary Care Provider +1- [phone] Encounter Details Date Type Department Care Team (Late st Contact Info) Description 08/07/2004 Outpatient Historical [facility] Social History Tobacco Use Types Packs/Day Years Used Date Smoking Tobacco: Never Assessed Comments Unknown Sex and Gender Information Value Date Recorded Sex Assigned at Not on file Legal Sex Female 4:06 AM LEATHER CRAFTSMAN Gender Identity Not on file Sexual Orientation Not on file documented as of this encounter Plan of Treatment Not on file documented as of this encounter Visit Diagnoses Not on filedocumented in this encounter Care Teams Communications Programmer Relationship Specialty Start Date End Date Kristen Quispe MD [address] [facility] [address] [place] [address] PCP - General Family Practice 12/19/13 documented as of this encounter
--- OUTSIDE RECORDS SUMMARY | 2025-10-08 13:01 | XMS_ITS | Encounter Summary ---
Author Organization [facility] Address [address] [place] [address] Care Team Providers Care Carpenter Prototype Name Role Phone Kristen Quispe MD Primary Care Provider +1- [phone] Encounter Details Date Type Department Care Team (Late st Contact Info) Description 02/01/2003 Outpatient Historical [facility] Qasim Aragon MD [address] [place] [address] Hered prog musc dystrphy (Primary Dx) Social History Tobacco Use Types Packs/Day Years Used Date Smoking Tobacco: Never Assessed Comments Unknown Sex and Gender Information Value Date Recorded Sex Assigned at Not on file Legal Sex Female 4:06 AM LOGGING OPERATIONS INSPECTOR Gender Identity Not on file Sexual Orientation Not on file documented as of this encounter Plan of Treatment Not on file documented as of this encounter Visit Diagnoses Diagnosis Hered prog musc dystrphy- Primary Hereditary progressive muscular dystrophy documented in this encounter Care Teams Carpenter Prototype Relationship Specialty Start Date End Date Kristen Quispe MD [address] [facility] [address] [place] [address] PCP - General Family Practice 12/19/13 documented as of this encounter
--- OUTSIDE RECORDS SUMMARY | 2025-10-08 13:01 | XMS_ITS | Encounter Summary ---
Author Organization [facility] Address [address] [place] [address] Care Team Providers Care Multisensor Intelligence Officer Name Role Phone Kristen Quispe MD Primary Care Provider +1- [phone] Encounter Details Date Type Department Care Team (Latest Contact Info) Description 08/23/[address] [facility] [address] [address] Keon Vogel DO NO ADDRESS ON FILE Dysfunct eustachian tube (Primary Dx); URIN TRACT INFECTION NOS Social History Tobacco Use Types Packs/Day Years Used Date Smoking Tobacco: Never Assessed Comments Unknown Sex and Gender Information Value Date Recorded Sex Assigned at Not on file Legal Sex Female 4:06 AM MEDICAL RECEPTION Gender Identity Not on file Sexual Orientation Not on file documented as of this encounter Plan of Treatment Not on file documented as of this encounter Visit Diagnoses Diagnosis Dysfunct eustachian tube- Primary Dysfunction of Eustachian tube Urinary tract infection, site not specified documented in this encounter Care Teams Multisensor Intelligence Officer Relationship Specialty Start Date End Date Kristen Quispe MD [address] [address] PCP - General Family Practice 12/19/13 documented as of this encounter
--- OUTSIDE RECORDS SUMMARY | 2025-10-08 13:01 | XMS_ITS | Encounter Summary ---
Author Organization [facility] Address [address] [place] [address] Care Team Providers Care Upsetter Helper Name Role Phone Kristen Quispe MD Primary Care Provider +1- [phone] Encounter Details Date Type Department Care Team (Late st Contact Info) Description 02/05/2005 Outpatient Historical [facility] Social History Tobacco Use Types Packs/Day Years Used Date Smoking Tobacco: Never Assessed Comments Unknown Sex and Gender Information Value Date Recorded Sex Assigned at Not on file Legal Sex Female 4:06 AM HEALTHCARE LIAISON Gender Identity Not on file Sexual Orientation Not on file documented as of this encounter Plan of Treatment Not on file documented as of this encounter Visit Diagnoses Not on filedocumented in this encounter Care Teams Upsetter Helper Relationship Specialty Start Date End Date Kristen Quispe MD [address] [facility] [address] [place] [address] PCP - General Family Practice 12/19/13 documented as of this encounter
--- OUTSIDE RECORDS SUMMARY | 2025-10-08 13:01 | XMS_ITS | Encounter Summary ---
Author Organization [facility] Address [address] [place] [address] Care Team Providers Care Gunnery/Ordnance Officer Name Role Phone Kristen Quispe MD Primary Care Provider Encounter Details Date Type Department Care Team (Latest Contact Info) Description 11/11/[address] [facility] [place] [address] [address] Rickey Blood MD [address] [facility] [address] [place] [address] SCREENING MAL NEOP-BREAST,UNSPEC (Primary Dx); ACUTE SINUSITIS NOS; DEPRESSIVE DISORDER NEC; ENURESIS NOS Social History Tobacco Use Types Packs/Day Years Used Date Smoking Tobacco: Never Assessed Comments Unknown Sex and Gender Information Value Date Recorded Sex Assigned at Not on file Legal Sex Female 4:06 AM ART PREPARATOR Gender Identity Not on file Sexual Orientation Not on file documented as of this encounter Plan of Treatment Not on file documented as of this encounter Visit Diagnoses Diagnosis Breast screening, unspecified- Primary Acute sinusitis, unspecified Depressive disorder, not elsewhere classified Unspecified urinary incontinence documented in this encounter Care Teams Gunnery/Ordnance Officer Relationship Specialty Start Date End Date Kristen Quispe MD [address] [address] PCP - General Family Practice 12/19/13 documented as of this encounter
--- OUTSIDE RECORDS SUMMARY | 2025-10-08 13:01 | XMS_ITS | Encounter Summary ---
Author Organization [facility] Address [address] [place] [address] Care Team Providers Care Solar Project Coordination Specialist Name Role Phone Kristen Quispe MD Primary Care Provider [phone]- [phone] Encounter Details Date Type Department Care Team (Late st Contact Info) Description 02/07/2004 Outpatient Historical [facility] Social History Tobacco Use Types Packs/Day Years Used Date Smoking Tobacco: Never Assessed Comments Unknown Sex and Gender Information Value Date Recorded Sex Assigned at Not on file Legal Sex Female 4:06 AM TOOL SMITH Gender Identity Not on file Sexual Orientation Not on file documented as of this encounter Plan of Treatment Not on file documented as of this encounter Visit Diagnoses Not on filedocumented in this encounter Care Teams Solar Project Coordination Specialist Relationship Specialty Start Date End Date Kristen Quispe MD [address] [facility] [address] [place] [address] PCP - General Family Practice 12/19/13 documented as of this encounter
--- OUTSIDE RECORDS SUMMARY | 2025-10-08 13:01 | XMS_ITS | Encounter Summary ---
Author Organization [facility] Address [address] [place] [address] Care Team Providers Care Labor Representative Name Role Phone Kristen Quispe MD Primary Care Provider [phone]- [phone] Encounter Details Date Type Department Care Team (Latest Contact Info) Description 08/08/2003 Outpatient Historical [facility] [address] [address] Keon Vogel DO NO ADDRESS ON FILE ACUTE MAXILLARY SINUSITIS (Primary Dx); ACUTE URI NOS; URIN TRACT INFECTION NOS Social History Tobacco Use Types Packs/Day Years Used Date Smoking Tobacco: Never Assessed Comments Unknown Sex and Gender Information Value Date Recorded Sex Assigned at Not on file Legal Sex Female 4:06 AM TESTING PROJECTS ADMINISTRATOR Gender Identity Not on file Sexual Orientation Not on file documented as of this encounter Plan of Treatment Not on file documented as of this encounter Visit Diagnoses Diagnosis Acute maxillary sinusitis- Primary Acute upper respiratory infections of unspecified site Urinary tract infection, site not specified documented in this encounter Care Teams Labor Representative Relationship Specialty Start Date End Date Kristen Quispe MD [address] [phone] PCP - General Family Practice 12/19/13 documented as of this encounter
--- OUTSIDE RECORDS SUMMARY | 2025-10-08 13:01 | XMS_ITS | Encounter Summary ---
Author Organization [facility] Address [address] [place] [address] Care Team Providers Care Science Intern Name Role Phone Kristen Quispe MD Primary Care Provider Encounter Details Date Type Department Care Team (Latest Contact Info) Description 09/29/2003 Outpatient Historical [facility] [address] [address] Rickey Blood MD [address] [address] URIN TRACT INFECTION NOS (Primary Dx); HEMATURIA; CANDIDAL VULVOVAGINITIS; ACUTE SINUSITIS NOS Social History Tobacco Use Types Packs/Day Years Used Date Smoking Tobacco: Never Assessed Comments Unknown Sex and Gender Information Value Date Recorded Sex Assigned at Not on file Legal Sex Female 4:06 AM RUG CLEANER HAND Gender Identity Not on file Sexual Orientation Not on file documented as of this encounter Plan of Treatment Not on file documented as of this encounter Visit Diagnoses Diagnosis Urinary tract infection, site not specified- Primary Hematuria Candidiasis of vulva and vagina Acute sinusitis, unspecified documented in this encounter Care Teams Science Intern Relationship Specialty Start Date End Date Kristen Quispe MD [address] [phone] PCP - General Family Practice 12/19/13 documented as of this encounter
--- NOTE | 2025-10-08 13:06 | XRR_ITS ---
PROCEDURE INFORMATION: Exam: XR Chest Exam date and time: 10/08/2025 1:07 PM Age: 69 years old Clinical indication: Shortness of breath; Additional info: SOB TECHNIQUE: Imaging protocol: Radiologic exam of the chest. Views: 1 view. COMPARISON: No relevant prior studies available. FINDINGS: Lungs: Low lung volumes. Patchy retrocardiac left lower lobe opacity and air bronchograms noted. Remaining lung parenchyma is clear. Pleural spaces: Unremarkable. No pleural effusion. No pneumothorax. Heart/Mediastinum: Unremarkable. No cardiomegaly. Bones/joints: Unremarkable. XR/XR chest 1V portable [id number] IMPRESSION: Left lower lobe pneumonitis.
[2025-10-08 13:11] LABS: Hematocrit 41.7 % (36-47); Hemoglobin 11.80 g/dL (11.27-16.99); Mean Corpuscular HGB Conc 28.3 g/dL (30-55); Mean Corpuscular Hemoglobin 22.5 pg (27-33); Mean Corpuscular Volume 79.6 fl (85-98); Nucleated Red Blood Cells % 0.1 %; Platelet Count 186 10^3/cmm (157-399); Red Blood Count 5.24 10^6/uL (3.85-5.65); White Blood Count 16.76 10^3/uL (3.29-11.43)
--- NOTE | 2025-10-08 13:25 | ECG_ITS ---
[facility] Date: 2025-10-08 Pat Name: Yuki Sales Department: Room: Gender: Female Academic Dean: : [id number] Requested By: Stalin Monge Order Number: [id number] Reading MD: JASWANT HAAS Measurements Intervals [place] Rate: 87 P: 34 AL: 155 QRS: -1 QRSD: 100 T: 19 QT: 397 QTc: 479 Interpretive Statements SINUS RHYTHM NONSPECIFIC ST & T-WAVE ABNORMALITY No previous ECG available for comparison Electronically Signed On 10-10-2025 12:02:59 [employer]URNED GOODS SORTER by JASWANT HAAS [email or web address]
--- NOTE | 2025-10-08 13:29 | W.ED.SOB ---
HPI - SOB/Dyspnea General: Chief Complaint: Shortness of Breath/Dyspnea Stated Complaint: sob Time Seen by Provider: 10/08/25 12:56 Source: EMS Mode of arrival: EMS Limitations: altered mental status History of Present Illness: HPI Narrative: 69-year-old female is here from senior living with concern for possible pneumonia patient is bedbound and altered at baseline she is able to tell me her name but not reliably answer any other questions per EMS patient does not typically wear oxygen's but still requiring 2 to 4 L of oxygen. No known fevers. Related Data Home Medications ?Medication ?Instructions ?Recorded ?Confirmed acetaminophen 650 mg 650 mg PO Q12H 04/09/20 04/09/20 tablet,extended release (Mapap Arthritis Pain) aluminum-mag hydroxide-simethicone 15 ml PO QID PRN 04/09/20 04/09/20 200 mg-200 mg-20 mg/5 mL oral susp amlodipine 10 mg tablet 10 mg PO DAILY 04/09/20 04/09/20 cetirizine 10 mg capsule (Zyrtec) 10 mg PO DAILY 04/09/20 04/09/20 cholecalciferol (vitamin D3) 1,250 PO 04/09/20 04/09/20 mcg (50,000 unit) capsule clopidogrel 75 mg tablet 75 mg PO DAILY 04/09/20 04/09/20 docusate sodium 100 mg capsule 100 mg PO BID 04/09/20 04/09/20 famotidine 10 mg tablet 10 mg PO DAILY 04/09/20 04/09/20 furosemide 20 mg tablet (Lasix) 20 mg PO QAM 04/09/20 04/09/20 glipizide 2.5 mg tablet, extended 2.5 mg PO DAILY 04/09/20 04/09/20 release 24 hr ipratropium bromide 21 mcg (0.03 2 spray intranasal BID 04/09/20 04/09/20 %) nasal spray levothyroxine 100 mcg capsule 100 mcg PO DAILY 04/09/20 04/09/20 lovastatin 40 mg tablet 40 mg PO DAILY 04/09/20 04/09/20 magnesium hydroxide 400 mg/5 mL 15 ml PO BID PRN 04/09/20 04/09/20 oral suspension (Milk of Magnesia) meclizine 12.5 mg tablet 12.5 mg PO BID 04/09/20 04/09/20 menthol 4 % topical gel (Biofreeze 1 applic topical TID PRN pain 04/09/20 04/09/20 (menthol)) metformin 500 mg tablet 500 mg PO BID 04/09/20 04/09/20 montelukast 10 mg tablet 10 mg PO DAILY 04/09/20 04/09/20 nystatin 100,000 unit/gram topical 1 applic topical BID 04/09/20 04/09/20 powder paroxetine HCl 30 mg tablet 30 mg PO DAILY 04/09/20 04/09/20 phenylephrine 0.25 %-pramoxine 1 1 applic DE BID 04/09/20 04/09/20 %-glycerin-wh.petrolatum rectal cream (Preparation H Maximum Strength) promethazine 6.25 mg/5 mL oral 12.5 mg PO Q6H PRN 04/09/20 04/09/20 syrup sitagliptin phosphate 100 mg 100 mg PO DAILY 04/09/20 04/09/20 tablet (Januvia) solifenacin 10 mg tablet (Vesicare) 10 mg PO DAILY 04/09/20 04/09/20 tramadol 50 mg tablet 50 mg PO Q6H PRN 04/09/20 04/09/20 Allergies Allergy/AdvReac Type Severity Reaction Status Date / Time Penicillins Allergy Unknown Unknown Verified 10/08/25 12:58 aspirin AdvReac ADR-Photose Verified 10/08/25 12:58 nsitivity PFSH ED PFSH: Medical History (Updated 10/08/25 @ 14:15 by Stalin Monge MD) Diabetes mellitus GERD (gastroesophageal reflux disease) Hypothyroid Depression Osteoarthritis Arthritis Seasonal allergies Hyperlipidemia Constipation Sensory neuropathy Muscular atrophy Social History (Updated 04/09/20 @ 13:04 by DOROTA Jimenez-) Smoking and tobacco/nicotine status: unknown if used tobacco/nicotine Alcohol intake: never Substance/Drug Use: never Adopted: No Housing: [facility] Pets and animals: No Current gender identity: Female Special chloe needs: No Physical Exam Const: COMMON NORMALS: negative for patient oriented x3 GENERAL APPEARANCE: ill appearing and frail appearing HENMT: COMMON NORMALS: normocephalic and atraumatic HEAD & SCALP: normocephalic and atraumatic Eye: COMMON NORMALS: conjunctivae normal CONJUNCTIVA: Yes conjunctivae normal Neck/C-Spine: COMMON NORMALS: full ROM and supple Chest: COMMONS NORMALS: normal inspection of the chest Resp: COMMON NORMALS: No retractions and No use of accessory muscles AUSCULTATION: crackles Cardio: COMMON NORMALS: regular rate, regular rhythm and No murmurs present (Cardio) RATE: regular rate RHYTHM: regular rhythm GI: COMMON NORMALS: Normal to inspection, nondistended, normoactive bowel sounds present, Soft to palpation, non-tender and no masses PALPATION: Yes Soft to palpation Extremity: COMMON NORMALS: normal to inspection Neuro: COMMON NORMALS: negative for patient oriented x3 Psych: COMMON NORMALS: cooperative Skin: COMMON NORMALS: no rashes or lesions noted and no wounds GENERAL SKIN EXAM: no rashes or lesions noted Course Vital Signs: Vital signs: Vital Signs Temperature 98.1 F 10/08/25 12:48 Pulse Rate 89 10/08/25 12:48 Respiratory Rate 20 H 10/08/25 12:48 Blood Pressure 103/65 10/08/25 12:48 Pulse Oximetry 95 10/08/25 12:48 Oxygen Delivery Me thod Nasal Cannula 10/08/25 12:48 MDM - SOB/Dyspnea Medical Decision Making Patient presents here with some hypoxia and concern for aspiration pneumonia from senior living. Patient's vitals here have been normal she does have an elevated white count x-ray shows a left lower lobe pneumonia she is requiring oxygen here did speak to hospitalist Dr. Leavitt and will admit for her pneumonia. Patient did receive sepsis bolus here along with IV antibiotics. EKG interpreted by me at [address] elevation normal sinus rhythm heart rate 87 QRS 100 QTc 441 Medical Records I reviewed the patient's medical records. Lab Data I reviewed the patient's lab results. 10/08/25 13:00 10/08/25 13:00 Labs/Radiology: Laboratory Results WBC 16.76 10^3/uL (3.29-11.43) H 10/08/25 13:00 RBC 5.24 10^6/uL (3.85-5.65) 10/08/25 13:00 Hgb 11.80 g/dL (11.27-16.99) 10/08/25 13:00 Hct 41.7 % (36-47) 10/08/25 13:00 MCV 79.6 fl (85-98) L 10/08/25 13:00 MCH 22.5 pg (27-33) L 10/08/25 13:00 MCHC 28.3 g/dL (30-55) L 10/08/25 13:00 RDW 26.8 % (12.1-15.1) H 10/08/25 13:00 Plt Count 186 10^3/cmm (157-399) 10/08/25 13:00 MPV 10.0 fL (7.4-10.4) 10/08/25 13:00 Neut % (Auto) 88.3 % 10/08/25 13:00 Lymph % (Auto) 6.2 % 10/08/25 13:00 Newton % (Auto) 5.0 % 10/08/25 13:00 Eos % (Auto) 0.0 % 10/08/25 13:00 Baso % (Auto) 0.1 % 10/08/25 13:00 Neut # (Auto) 14.80 10^3/uL (1.8-7.7) H 10/08/25 13:00 Lymph # (Auto) 1.0 10^3/uL (0.8-4.8) 10/08/25 13:00 Newton # (Auto) 0.8 10^3/uL (0.2-0.9) 10/08/25 13:00 Eos # (Auto) 0.0 10^3/uL (0.0-0.8) 10/08/25 13:00 Baso # (Auto) 0.0 10^3/uL (0.0-0.1) 10/08/25 13:00 Nucleated RBC % (auto) 0.1 % 10/08/25 13:00 Nucleated RBCs # 0.0 /100WBC 10/08/25 13:00 Sodium 138 mmol/L (136-145) 10/08/25 13:00 Potassium 5.3 mmol/L (3.5-5.1) H 10/08/25 13:00 Chloride 108 mmol/L (98-107) H 10/08/25 13:00 Carbon Dioxide 16 mmol/L (22-29) L 10/08/25 13:00 Anion Gap 19.3 (5-19) H 10/08/25 13:00 BUN 39 mg/dL (8-23) H 10/08/25 13:00 Creatinine 0.5 mg/dL (0.5-0.9) 10/08/25 13:00 GFR Calculation 123.1 mL/min (90-130) 10/08/25 13:00 Glucose 148 mg/dL (65-115) H 10/08/25 13:00 Calculated Osmolality 298 mOsm/kg (285-295) H 10/08/25 13:00 Calcium 8.8 mg/dL (8.5-10.5) 10/08/25 13:00 Total Bilirubin 1.1 mg/dL (0.15-1.2) 10/08/25 13:00 AST 234 U/L (0-32) H 10/08/25 13:00 ALT 55 U/L (0-33) H 10/08/25 13:00 Alkaline Phosphatase 483 U/L (35-105) H 10/08/25 13:00 NT-Pro-B Natriuret Pep 659 pg/mL (0-125) H 10/08/25 13:00 Total Protein 6.3 g/dL (6.6-8.7) L 10/08/25 13:00 Albumin 2.3 g/dL (3.5-5.2) L 10/08/25 13:00 Globulin 4.0 g/dL (1.3-4.6) 10/08/25 13:00 All radiology interpretation(s) finalized by discharge Discharge Plan Discharge Patient Disposition: Placed in Observation Clinical Impression: Pneumonia Qualifiers: Pneumonia type: due to unspecified organism Laterality: left Lung location: lower lobe of lung Qualified Code(s): J18.9 - Pneumonia, unspecified organism Coding Level of Care Code ED Clerk Of Scales for Josemanuel Choe
[2025-10-08 13:44] LABS: Alanine Aminotransferase 55 U/L (0-33); Albumin Level 2.3 g/dL (3.5-5.2); Alkaline Phosphatase 483 U/L (35-105); Blood Urea Nitrogen 39 mg/dL (8-23); Calcium 8.8 mg/dL (8.5-10.5); Carbon Dioxide 16 mmol/L (22-29); Chloride 108 mmol/L (98-107); Globulin 4.0 g/dL (1.3-4.6); Glucose 148 mg/dL (65-115); NT Pro B Type Natriuretic Pept 659 pg/mL (0-125); Osmolality Calculated 298 mOsm/kg (285-295); Sodium 138 mmol/L (136-145); Total Protein 6.3 g/dL (6.6-8.7)
[2025-10-08 13:46] LABS: Anion Gap 19.3 (5-19); Aspartate Amino Transferase 234 U/L (0-32); Potassium 5.3 mmol/L (3.5-5.1)
[2025-10-08] MEDS: cefTRIAXone 1,000 mg SDV 1000 MG IVP (13:47)
[2025-10-08 14:35] LABS: Lactic Sepsis W/Reflex 4.1 mmol/L (0.5-2.2)
[2025-10-08 15:21] LABS: Reflex Lactate Order REFLEX LACTIC ORDERD
[2025-10-08 17:06] LABS: Glucose Urine UA Negative (Normal); Nitrate Urine Negative (Negative); Specific Gravity, Urine 1.020 (1.005-1.030)
[2025-10-08 17:11] LABS: Add Urine Microscopic? YES
[2025-10-08 17:18] LABS: UA Slide Review UA Slide Review Perf
[2025-10-08 17:34] LABS: Lactic Acid level (Lactate) 3.5 mmol/L (0.5-2.2)
[2025-10-08 18:08] LABS: MRSA PCR OZH (swab) MRSA Detected (Not Detecte)
[2025-10-08 18:44] LABS: Coronavirus 229E,HKU1,NL63,OC4 Not Detected (NOT DETECT); Parainfluenza Virus Type 1 Not Detected (NOT DETECT); Parainfluenza Virus Type 2 Not Detected (NOT DETECT); Parainfluenza Virus Type 3 Not Detected (NOT DETECT); Parainfluenza Virus Type 4 Not Detected (NOT DETECT); SARS-COV-2 Not Detected (NOT DETECT)
--- NOTE | 2025-10-08 19:23 | PM.HP ---
Providers/Chief Complaint Admitting Physician: Fabricio Hoover MD Chief Complaint: sob History of Present Illness Yuki Sales is a 69 year old female with history of HLD, GERD, DM, arthritis, depression, muscular atrophy, foot drop, and bed bound presenting with complaints of shortness of breath and altered mental status. Patient presents from a group home. Son at bedside to help with patient history. She does not wear oxygen at baseline but is now requiring 2-4 liters. She is altered above baseline but still alert and responsive (yes/no). Patient uses a power wheelchair rarely s/t to severe bilateral pressure ulcers to the buttocks. In the ED, BP 104/60, HR 82, RR 20, RR 20, T 98.1. WBC 16.76, HGB 11.80, PLT 186. Potassium 5.3. BUN 39, Creatinine 0.5. Glucose 148. Lactic 4.1 > 3.5. AST 234, ALT 55. Urinalysis; turbid, 1+ protein, 3+ blood, 3+ leukocytes, 4+ bacteria. Will admit to Hospitalist Service for further evaluation and treatement. Review of Systems Const: Reports: other (mentation altered above baseline ) Card: Denies: chest pain or palpitations Resp: Denies: dyspnea, productive cough or non-productive cough GI: Reports: constipation and bloating Neuro: Reports: weakness in extremities Pratik/Lymph: Reports: easy bruising and easy bleeding All/Imm: Reports: seasonal rhinorrhea Medications/Allergies Home Medications ?Medication ?Instructions ?Recorded ?Confirmed ?Last Taken ?Type aluminum-mag hydroxide-simethicone 15 ml PO QID PRN upset stomach 04/09/20 10/08/25 Unknown History 200 mg-200 mg-20 mg/5 mL oral susp clopidogrel 75 mg tablet 75 mg PO DAILY 04/09/20 10/08/25 10/08/25 10:00 History magnesium hydroxide 400 mg/5 mL 15 ml PO BID PRN Constipation 04/09/20 10/08/25 08/21/25 21:55 History oral suspension (Milk of Magnesia) meclizine 12.5 mg tablet 12.5 mg PO BID 04/09/20 10/08/25 Unknown History menthol 4 % topical gel (Biofreeze 1 applic topical TID PRN pain 04/09/20 10/08/25 05/26/25 05:25 History (menthol)) nystatin 100,000 unit/gram topical 1 applic topical BID 04/09/20 10/08/25 10/07/25 14:15 History powder bisacodyl 10 mg rectal suppository 10 mg TX DAILY PRN Constipation 10/08/25 10/08/25 06/16/25 20:20 History carboxymethylcellulose 0.5 1 drp ophthalmic (eye) TID dry eye 10/08/25 10/08/25 10/08/25 09:55 History %-glycerin 0.9 % eye drops (Refresh Optive) cholecalciferol (vitamin D3) 50 50 mcg PO DAILY 10/08/25 10/08/25 10/08/25 10:00 History mcg (2,000 unit) tablet (Vitamin D3) dextran 70-hypromellose eye drops 1 drp ophthalmic (eye) Q4H PRN Dry 10/08/25 10/08/25 Unknown History in a dropperette (Artificial Tears Eyes (PF) drops in a dropperette) dextromethorphan-guaifenesin 30 1 tab PO Q12H PRN muscular 10/08/25 10/08/25 10/08/25 09:55 History mg-600 mg tablet extended dystrophy [id number] hr (Mucinex DM) docusate sodium 100 mg capsule 100 mg PO DAILY 10/08/25 10/08/25 10/08/25 10:00 History famotidine 20 mg tablet (Pepcid AC 20 mg PO BEDTIME 10/08/25 10/08/25 10/06/25 21:45 History Maximum Strength) gabapentin 100 mg capsule 100 mg PO TID PRN neuropathy 10/08/25 10/08/25 10/08/25 09:55 History hydrocodone 5 mg-acetaminophen 325 1 tab PO DAILY PRN Pain 10/08/25 10/08/25 10/07/25 14:15 History mg tablet insulin glargine 100 unit/mL (3 10 unit SUBCUT BEDTIME 10/08/25 10/08/25 10/08/25 01:35 History mL) subcutaneous pen (Lantus Solostar U-100 Insulin) ipratropium bromide 42 mcg (0.06 1 spray intranasal BID 10/08/25 10/08/25 10/08/25 10:00 History %) nasal spray levothyroxine 150 mcg tablet 150 mcg PO DAILY 10/08/25 10/08/25 10/08/25 08:05 History loperamide 2 mg tablet 2 mg PO ONCE PRN diahrea 10/08/25 10/08/25 Unknown History lovastatin 10 mg tablet 5 mg PO BEDTIME 10/08/25 10/08/25 10/06/25 21:45 History ondansetron HCl 4 mg tablet 4 mg PO Q6H PRN Nausea And Vomiting 10/08/25 10/08/25 08/02/25 19:55 History polyethylene glycol 3350 17 17 g PO DAILY PRN Constipation 10/08/25 10/08/25 09/26/25 10:05 History gram/dose oral powder (Miralax) sennosides 8.6 mg tablet (senna) 8.6 mg PO DAILY PRN Constipation 10/08/25 10/08/25 09/29/25 05:45 History sertraline 50 mg tablet (Zoloft) 175 mg PO BEDTIME 10/08/25 10/08/25 10/06/25 21:45 History simethicone 80 mg chewable tablet 80 mg PO Q12H PRN Gastrointestinal 10/08/25 10/08/25 03/16/25 14:00 History Spasms Or Cramping Allergies Allergy/AdvReac Type Severity Reaction Status Date / Time Penicillins Allergy Unknown Unknown Verified 10/08/25 12:58 aspirin AdvReac ADR-Photose Verified 10/08/25 12:58 nsitivity PFSH Acute PFSH: Medical History Diabetes mellitus GERD (gastroesophageal reflux disease) Hypothyroid Depression Osteoarthritis Arthritis Seasonal allergies Hyperlipidemia Constipation Sensory neuropathy Muscular atrophy Social History Smoking and tobacco/nicotine status: unknown if used tobacco/nicotine Alcohol intake: never Substance/Drug Use: never Adopted: No Housing: Prison Pets and animals: No Current gender identity: Female Special chloe needs: No Vitals/I&O/Wt Last Vital Signs Temp 98.1 F 10/08/25 12:48 Pulse 82 10/08/25 15:08 Resp 20 H 10/08/25 12:48 BP 104/60 10/08/25 15:08 Pulse Ox 92 10/08/25 15:08 O2 Del Method Nasal Cannula 10/08/25 14:41 10/08/25 10/08/25 10/08/25 06:59 14:59 22:59 Intake Total 1250 / 1250 1250 / 2500 Balance 1250 / 1250 1250 / 2500 Weight last 48 hrs Weight 70.364 kg Weight 68.039 kg Physical Exam Const: OTHER: Alert, responsive Chest: COMMONS NORMALS: normal inspection of the chest Resp: OTHER: Decreased breath sounds Cardio: COMMON NORMALS: no JVD, regular rate and regular rhythm Extremity: NARRATIVE EXTREMITY EXAM: Bilateral foot drop, deconditioning Skin: NARRATIVE SKIN EXAM: Bilateral pressure ulcers to buttocks Urinary Catheter Management: Luther Latex: Cath Placed During This Visit: yes Reason for Continuing Indwelling Catheter: Assist healing open wound Urinary Catheter Date of Insertion: 10/08/25 Urinary Catheter Time of Insertion: 16:30 Data 10/08/25 13:00 10/08/25 13:00 Micro: Microbiology 10/08/25 13:29 Blood Culture - Preliminary Blood SPECIMEN COLLECTED 10/08/25 13:29 Blood Culture - Preliminary Blood SPECIMEN COLLECTED A&P Assessment and plan 1. Pneumonia: Left lower lobe pneumonitis Symptomatic with shortness of breath, afebrile WBC 16.76 EKG; SINUS RHYTHM, HR 87, NONSPECIFIC ST & T-WAVE ABNORMALITY COVID, Flu, RSV NEG CXR; Left lower lobe pneumonitis Lactic 4.1 > 3.5 Pulse ox Supplemental o2 Vit C, D, Zinc Protonix DVT prophylaxis 2. MRSA (methicillin resistant staph aureus) culture positive: MRSA PCR A Positive Supportive care Contact precautions 3. UTI (urinary tract infection): Urinalysis; turbid, 1+ protein, 3+ blood, 3+ leukocytes, 4+ bacteria BUN 39, Creatinine 0.5 I&O 4. Hypothyroid: Continue levothyroxine 5. Diabetes mellitus: Glucose 148 A1c Hold home regimen Sliding scale 6. Pressure ulcers of skin of multiple topographic sites: Bilateral buttocks Wound care Santyl Pain management PDMP PDMP Reviewed: Not Reviewed Attestations Medical Necessity Statement*: Patient expected to stay greater than two midnights s/t to UTI, MRSA, and Pneumonia. Diagnoses Pneumonia J18.9 MRSA (methicillin resistant staph aureus) culture positive Z22.322 UTI (urinary tract infection) N39.0 Hypothyroid E03.9 Diabetes mellitus E11.9 Pressure ulcers of skin of multiple topographic sites L89.90
[2025-10-08 20:50] LABS: Estmated Average Glucose 177; Hemoglobin A1C 7.8 % (4.0-6.0)
--- NOTE | 2025-10-08 22:29 | PC.NURSE ---
This nurse assisted in administering Kayexalate rectally per order. Patient retained minimal medication due to altered mentation.
[2025-10-09] VITALS (60 sets, daily range): BP systolic 76–114; BP diastolic 28–83; PULSE 0–84; RESP 0–29; TEMP 35.1–36.6; O2SAT 79–95
[2025-10-09] MEDS: pantoprazole 40 mg SDV IVP (04:12)
[2025-10-09 05:23] LABS: Hematocrit 40.8 % (36-47); Hemoglobin 11.10 g/dL (11.27-16.99); Mean Corpuscular HGB Conc 27.2 g/dL (30-55); Mean Corpuscular Hemoglobin 22.6 pg (27-33); Mean Corpuscular Volume 82.9 fl (85-98); Nucleated Red Blood Cells % 0.1 %; Platelet Count 224 10^3/cmm (157-399); Red Blood Count 4.92 10^6/uL (3.85-5.65); White Blood Count 20.63 10^3/uL (3.29-11.43)
[2025-10-09 05:54] LABS: Lactate (Lactic Acid level) 3.0 mmol/L (0.5-2.2)
[2025-10-09 05:57] LABS: Alanine Aminotransferase 65 U/L (0-33); Albumin Level 2.5 g/dL (3.5-5.2); Alkaline Phosphatase 518 U/L (35-105); Anion Gap 17.0 (5-19); Aspartate Amino Transferase 258 U/L (0-32); Blood Urea Nitrogen 43 mg/dL (8-23); Calcium 8.4 mg/dL (8.5-10.5); Carbon Dioxide 20 mmol/L (22-29); Chloride 116 mmol/L (98-107); Globulin 4.1 g/dL (1.3-4.6); Glucose 136 mg/dL (65-115); Magnesium 2.2 mg/dL (1.7-2.3); Osmolality Calculated 319 mOsm/kg (285-295); Potassium 5.0 mmol/L (3.5-5.1); Sodium 148 mmol/L (136-145); Total Protein 6.6 g/dL (6.6-8.7)
--- OUTSIDE RECORDS SUMMARY | 2025-10-09 08:23 | XMS_ITS | Encounter Summary ---
Author Organization [facility] Address [address] [place] [address] Care Team Providers Care Commercial Appraiser Name Role Phone Kristen Quispe MD Primary Care Provider [phone] Encounter Details Date Type Department Care Team (Latest Contact Info) Description 02/03/2000 Outpatient Historical [facility] [address] [address] Keon Vogel DO NO ADDRESS ON FILE Cystitis, unspecified (Primary Dx); Headache(784.0) Social History Tobacco Use Types Packs/Day Years Used Date Smoking Tobacco: Never Assessed Comments Unknown Sex and Gender Information Value Date Recorded Sex Assigned at Not on file Legal Sex Female 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
--- OUTSIDE RECORDS SUMMARY | 2025-10-09 08:23 | XMS_ITS | Encounter Summary ---
Author Organization [facility] Address [address] [place] [address] Care Team Providers Care Care Management Assistant Name Role Phone Kristen Quispe MD Primary Care Provider [phone] Encounter Details Date Type Department Care Team (Latest Contact Info) Description 02/27/2000 Outpatient Historical [facility] [address] [address] Cristal Craft NO ADDRESS ON FILE Rhinitis due to pollen (Primary Dx); Simple or unspecified chronic serous otitis media; Unspecified tinnitus; Dizziness and giddiness Social History Tobacco Use Types Packs/Day Years Used Date Smoking Tobacco: Never Assessed Comments Unknown Sex and Gender Information Value Date Recorded Sex Assigned at Not on file Legal Sex Female 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
--- OUTSIDE RECORDS SUMMARY | 2025-10-09 08:23 | XMS_ITS | Encounter Summary ---
Author Organization [facility] Address [address] [place] [address] Care Team Providers Care Lathe Tender Name Role Phone Kristen Quispe MD Primary Care Provider +1- [phone] Reason for Referral * Outpatient Services (Routine) - Closed Specialty Diagnoses / Procedures Referred By Quinten cottrell Referred To Contact Diagnoses Screening mammogram Procedures MAMMO SCREENING BILAT Keon Vogel DO NO ADDRESS ON FILE Referral ID Status Reason Start Date Expiration Date Visits Re quested Visits Authorized [id number] Closed 09/20/2010 03/19/2011 1 1 ER PLANER Encounter Details Date Type Department Care Team (Late st Contact Info) Description 09/20/2010 Ancillary Orders [facility] Imaging External Read [address] [place] [address] Keon Vogel DO NO ADDRESS ON FILE Screening mammogram Social History Tobacco Use Types Packs/Day Years Used Date Smoking Tobacco: Every Day Cigarettes 1 34 Alcohol Use Standard Drinks/Week Comments No 0 (1 standard drink = 0.6 oz pur e alcohol) Comments No Sex and Gender Information Value Date Recorded Sex Assigned at Not on file Legal Sex Female 4:06 AM LUMBER PLANER Gender Identity Not on file Sexual Orientation Not on file documented as of this encounter Plan of Treatment Not on file documented as of this encounter Results * MAMMO SCREENING BILAT (09/20/2010 2:47 PM LUMBER PLANER) Anatomical Region Laterality Modality Breast Bilateral Mammography Narrative 09/24/2010 12:30 PM LUMBER PLANER Bilateral Mammogram Reason for Exam: Screening Comparison: [...] mammogram documented in this encounter Care Teams Lathe Tender Relationship Specialty Start Date End Date Kristen Quispe MD [address] [phone] PCP - General Family Practice 12/19/13 documented as of this encounter
--- OUTSIDE RECORDS SUMMARY | 2025-10-09 08:23 | XMS_ITS | Encounter Summary ---
Author Organization [facility] Address [address] [place] [address] Care Team Providers Care Clothing Man Name Role Phone Kristen Quispe MD Primary Care Provider Encounter Details Date Type Department Care Team (Latest Contact Info) Description 03/16/2001 Outpatient Historical [facility] [address] [address] Rickey Blood MD [address] [address] Contusion of back(922.31) (Primary Dx) Social History Tobacco Use Types Packs/Day Years Used Date Smoking Tobacco: Never Assessed Comments Unknown Sex and Gender Information Value Date Recorded Sex Assigned at Not on file 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
--- OUTSIDE RECORDS SUMMARY | 2025-10-09 08:23 | XMS_ITS | Encounter Summary ---
Author Organization [facility] Address [address] [facility] Attn: Epic [place] [address] Care Team Providers Care High School Music Teacher Name Role Phone Kristen Quispe MD Primary Care Provider +1- [phone] Encounter Details Date Type Department Care Team (Late st Contact Info) Description 03/05/2001 Outpatient Historical Non-Staff, Physician NO ADDRESS ON FILE Social History Tobacco Use Types Packs/Day Years Used Date Smoking Tobacco: Never Assessed Comments Unknown Sex and Gender Information Value Date Recorded Sex Assigned at Not on file Legal Sex Female 4:06 AM CUSTOMS PATROL OFFICER Gender Identity Not on file Sexual Orientation Not on file documented as of this encounter Plan of Treatment Not on file documented as of this encounter Visit Diagnoses Not on filedocumented in this encounter Care Teams High School Music Teacher Relationship Specialty Start Date End Date Kristen Quispe MD [address] [facility] [address] [place] [address] PCP - General Family Practice 12/19/13 documented as of this encounter
--- OUTSIDE RECORDS SUMMARY | 2025-10-09 08:24 | XMS_ITS | Encounter Summary ---
Author Organization [facility] Address [address] [place] [address] Care Team Providers Care Security Tech Name Role Phone Kristen Quispe MD Primary Care Provider +1- [phone] Encounter Details Date Type Department Care Team (Late st Contact Info) Description 02/05/2005 Outpatient Historical [facility] Social History Tobacco Use Types Packs/Day Years Used Date Smoking Tobacco: Never Assessed Comments Unknown Sex and Gender Information Value Date Recorded Sex Assigned at Not on file Legal Sex Female 4:06 AM SAS CLINICAL PROGRAMMER Gender Identity Not on file Sexual Orientation Not on file documented as of this encounter Plan of Treatment Not on file documented as of this encounter Visit Diagnoses Not on filedocumented in this encounter Care Teams Security Tech Relationship Specialty Start Date End Date Kristen Quispe MD [address] [facility] [address] [place] [address] PCP - General Family Practice 12/19/13 documented as of this encounter
--- OUTSIDE RECORDS SUMMARY | 2025-10-09 08:24 | XMS_ITS | Encounter Summary ---
Author Organization [employer] [facility] Address [address] [facility] Attn: Epic Prelude [place] [address] Care Team Providers Care Inseminator Name Role Phone Kristen Quispe MD Primary Care Provider +1- [phone] Encounter Details Date Type Department Care Team (Late st Contact Info) Description 12/04/1999 Outpatient Historical Qasim Aragon MD [address] [place] [address] Social History Tobacco Use Types Packs/Day Years Used Date Smoking Tobacco: Never Assessed Comments Unknown Sex and Gender Information Value Date Recorded Sex Assigned at Not on file Legal Sex Female 4:06 AM RESIDENTIAL MORTGAGE UNDERWRITER Gender Identity Not on file Sexual Orientation Not on file documented as of this encounter Plan of Treatment Not on file documented as of this encounter Visit Diagnoses Not on filedocumented in this encounter Care Teams Inseminator Relationship Specialty Start Date End Date Kristen Quispe MD [address] [facility] 60 [place] [address] PCP - General Family Practice 12/19/13 documented as of this encounter
--- OUTSIDE RECORDS SUMMARY | 2025-10-09 08:24 | XMS_ITS | Encounter Summary ---
Author Organization [facility] Address [address] [place] [address] Care Team Providers Care Cake Cutter Machine Name Role Phone Kristen Quispe MD Primary Care Provider +1- [phone] Encounter Details Date Type Department Care Team (Late st Contact Info) Description 04/18/2020 Lab Requisition [facility] [id number] [place] [address] Drew Puckett MD NO ADDRESS [...] on file Legal Sex Female 4:06 AM FILM SORTER Gender Identity Not on file Sexual Orientation [...] PNEUMONIAE(A) LAURA MCG/ML 04/20/2020 7:11 AM CDT [facility] Urine (Urine, straight in/out catheter) 04/18/2020 4:35 [...] MD MICROBIOLOGY - GENERAL ORDERABLES Final Result [facility] CLIA# [id number] [address] [place] [address] documented in this encounter Visit Diagnoses Not on filedocumented in this encounter Care Teams Cake Cutter Machine Relationship Specialty Start Date End Date Kristen Quispe MD [address] [place] [address] PCP - General Family Practice 12/19/13 documented as of this encounter
--- OUTSIDE RECORDS SUMMARY | 2025-10-09 08:24 | XMS_ITS | Encounter Summary ---
Author Organization [facility] Address [address] [place] [address] Care Team Providers Care Nurses' Association Executive Director Name Role Phone Kristen Quispe MD Primary Care Provider +1- [phone] Encounter Details Date Type Department Care Team (Latest Contact Info) Description 03/18/2001 Outpatient Historical [facility] Medicine [place] [address] [address] Keon Vogel DO NO ADDRESS ON FILE Backache, unspecified (Primary Dx) Social History Tobacco Use Types Packs/Day Years Used Date Smoking Tobacco: Never Assessed Comments Unknown Sex and Gender Information Value Date Recorded Sex Assigned at Not on file 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
--- OUTSIDE RECORDS SUMMARY | 2025-10-09 08:24 | XMS_ITS | Encounter Summary ---
Author Organization [facility] Address [address] [facility] Attn: Epic Prelude [place] [address] Care Team Providers Care Gasateria Attendant Name Role Phone Kristen Quispe MD Primary Care Provider +1- [phone] Encounter Details Date Type Department Care Team (Late st Contact Info) Description 02/05/2001 Outpatient Historical Qasim Aragon MD [address] [place] [address] Social History Tobacco Use Types Packs/Day Years Used Date Smoking Tobacco: Never Assessed Comments Unknown Sex and Gender Information Value Date Recorded Sex Assigned at Not on file Legal Sex Female 4:06 AM TERRAZZO POLISHER Gender Identity Not on file Sexual Orientation Not on file documented as of this encounter Plan of Treatment Not on file documented as of this encounter Visit Diagnoses Not on filedocumented in this encounter Care Teams Gasateria Attendant Relationship Specialty Start Date End Date Kristen Quispe MD [address] [facility] 60 [place] [address] PCP - General Family Practice 12/19/13 documented as of this encounter
--- OUTSIDE RECORDS SUMMARY | 2025-10-09 08:24 | XMS_ITS | Clinical Summary ---
Author Organization [facility] Address [address] [place] [address] Care Team Providers Care Project Lead Name Role Phone Kristen Quispe MD Primary Care Provider [phone] Allergies Active Allergy Reactions Criticality Noted Date Comments Aspirin Hives High 08/04/2008 Penicillins Anaphylaxis High 08/04/2008 Medications levothyroxine 100 mcg tablet Take 100 mcg by mouth daily wheel aligner. 9 Active gabapentin (NEURONTIN) 300 mg capsule [...] Active sodium chloride (OCEAN) 0.65 % Aerosol, Dover Administer 1 Dover in each nostril 2 times daily. Active [...] on file Legal Sex Female 9:25 AM MANAGER CONSUMER INSIGHTS Gender Identity Not on file Sexual Orientation Not on file Last Filed Vital Signs Vital Sign Reading Time Taken Comments Blood Pressure 122/66 08/26/2024 4:10 PM MANAGER CONSUMER INSIGHTS Pulse 82 08/26/2024 4:10 PM MANAGER CONSUMER INSIGHTS Temperature 36.4 C (97.6 F) 08/26/2024 4:10 PM MANAGER CONSUMER INSIGHTS Respiratory Rate 16 08/26/2024 4:10 PM MANAGER CONSUMER INSIGHTS Oxygen Saturation 94% 08/26/2024 4:10 PM MANAGER CONSUMER INSIGHTS Inhaled Oxygen Concentration - - Weight 77.5 kg (170 lb 12.8 oz) 024 10:51 AM MANAGER CONSUMER INSIGHTS Height 170.2 cm (5' 7 ) 08/31/2024 2:16 PM MANAGER CONSUMER INSIGHTS Body Mass Index 26.75 08/24/2024 10:51 AM MANAGER CONSUMER INSIGHTS Plan of Treatment Health Maintenance Due Date [...] MAMMO SCREENING BILAT Routine 09/20/2010 2:47 PM MANAGER CONSUMER INSIGHTS Other screening mammogram from Last 3 Months or Most Recently Relevant to Health Maintenance Results * HEMOGLOBIN A1C (09/05/2024) ABSTRACTED HGB A1C 7.9 % Blood 09/05/2024 us Abstract Provider CHEMISTRY ORDERABLES Final Res ult * MAMMO SCREENING BILAT (09/20/2010 2:47 PM MANAGER CONSUMER INSIGHTS) Anatomical Region Laterality Modality Breast Bilateral Other Narrative 09/24/2010 12:30 PM MANAGER CONSUMER INSIGHTS Bilateral Mammogram Reason for Exam: Screening Comparison: [...] Advance Directives For more information, please contact: [phone] Documents on File Type Date Recorded Patient Braille Typist Expl anation Patient Life Sustaining Treatment Doc [...] 6:37 PM 08/20/2024 9:53 AM Care Teams Project Lead Relationship Specialty Start Date End Date Kristen Quispe MD [address] [address] PCP - General Family Practice 12/19/13
--- OUTSIDE RECORDS SUMMARY | 2025-10-09 08:24 | XMS_ITS | Encounter Summary ---
Author Organization [facility] Address [address] [place] [address] Care Team Providers Care Estate Administrator Name Role Phone Kristen Quispe MD Primary Care Provider +1- [phone] Encounter Details Date Type Department Care Team (Late st Contact Info) Description 08/04/2007 Outpatient Historical [address] [place] [address] Social History Tobacco Use Types Packs/Day Years Used Date Smoking Tobacco: Never Assessed Comments Unknown Sex and Gender Information Value Date Recorded Sex Assigned at Not on file Legal Sex Female 4:06 AM DIRECTOR OF CASEWORK SERVICES Gender Identity Not on file Sexual Orientation Not on file documented as of this encounter Plan of Treatment Not on file documented as of this encounter Visit Diagnoses Not on filedocumented in this encounter Care Teams Estate Administrator Relationship Specialty Start Date End Date Kristen Quispe MD [address] [facility] 60 [place] [address] PCP - General Family Practice 12/19/13 documented as of this encounter
--- OUTSIDE RECORDS SUMMARY | 2025-10-09 08:24 | XMS_ITS | Encounter Summary ---
Author Organization [facility] Address [address] [place] [address] Care Team Providers Care Automobile Mechanic Apprentice Name Role Phone Kristen Quispe MD Primary Care Provider +1- [phone] Encounter Details Date Type Department Care Team (Late st Contact Info) Description 08/14/2006 Outpatient Historical [facility] Services [address] [address] [facility] [facility] [place] [address] Qasim Aragon MD [address] [place] [address] Lumbosacral Spondylosis without Myelopathy (Primary Dx) Social History Tobacco Use Types Packs/Day Years Used Date Smoking Tobacco: Never Assessed Comments Unknown Sex and Gender Information Value Date Recorded Sex Assigned at Not on file Legal Sex Female 4:06 AM PROCESSING REP Gender Identity Not on file Sexual Orientation Not on file documented as of this encounter Plan of Treatment Not on file documented as of this encounter Visit Diagnoses Diagnosis Lumbosacral spondylosis without myelopathy- Primary documented in this encounter Care Teams Automobile Mechanic Apprentice Relationship Specialty Start Date End Date Kristen Quispe MD [address] [facility] [address] [place] [address] PCP - General Family Practice 12/19/13 documented as of this encounter
--- OUTSIDE RECORDS SUMMARY | 2025-10-09 08:24 | XMS_ITS | Encounter Summary ---
Author Organization [facility] Address [address] [place] [address] Care Team Providers Care Canteen Manager Name Role Phone Kristen Quispe MD Primary Care Provider +1- [phone] Encounter Details Date Type Department Care Team (Latest Contact Info) Description 03/18/2000 Outpatient Historical [facility] [address] [address] Keon Vogel, NO ADDRESS ON FILE Other specified menopausal and postmenopausal disorder (Primary Dx) Social History Tobacco Use Types Packs/Day Years Used Date Smoking Tobacco: Never Assessed Comments Unknown Sex and Gender Information Value Date Recorded Sex Assigned at Not on file Legal Sex Female 4:06 AM COMPUTER DRAFTER Gender Identity Not on file Sexual Orientation Not on file documented as of this encounter Plan of Treatment Not on file documented as of this encounter Visit Diagnoses Diagnosis Other specified menopausal and postmenopausal disorder- Primary documented in this encounter Care Teams Canteen Manager Relationship Specialty Start Date End Date Kristen Quispe MD [address] [address] PCP - General Family Practice 12/19/13 documented as of this encounter
--- OUTSIDE RECORDS SUMMARY | 2025-10-09 08:24 | XMS_ITS | Encounter Summary ---
Author Organization [facility] Address [address] [place] [address] Care Team Providers Care Household Cook Name Role Phone Kristen Quispe MD Primary Care Provider +1- [phone] Encounter Details Date Type Department Care Team (Latest Contact Info) Description 08/21/2006 Outpatient Historical [facility] Medicine [place] [address] [address] Keon Vogel DO NO ADDRESS ON FILE Unspecified Hypothyroidism (Primary Dx); Unspecified Essential Hypertension Social History Tobacco Use Types Packs/Day Years Used Date Smoking Tobacco: Never Assessed Comments Unknown Sex and Gender Information Value Date Recorded Sex Assigned at Not on file Legal Sex Female 4:06 AM BRONC BUSTER Gender Identity Not on file Sexual Orientation Not on file documented as of this encounter Plan of Treatment Not on file documented as of this encounter Visit Diagnoses Diagnosis Unspecified hypothyroidism- Primary Unspecified essential hypertension documented in this encounter Care Teams Household Cook Relationship Specialty Start Date End Date Kristen Quispe MD [address] [address] PCP - General Family Practice 12/19/13 documented as of this encounter
--- OUTSIDE RECORDS SUMMARY | 2025-10-09 08:24 | XMS_ITS | Encounter Summary ---
Author Organization [facility] Address [address] [place] [address] Care Team Providers Care Western Philosophy Professor Name Role Phone Kristen Quispe MD Primary Care Provider +1- [phone] Encounter Details Date Type Department Care Team (Late st Contact Info) Description 02/04/2006 Outpatient Historical [facility] Social History Tobacco Use Types Packs/Day Years Used Date Smoking Tobacco: Never Assessed Comments Unknown Sex and Gender Information Value Date Recorded Sex Assigned at Not on file Legal Sex Female 4:06 AM PATENT EXAMINER Gender Identity Not on file Sexual Orientation Not on file documented as of this encounter Plan of Treatment Not on file documented as of this encounter Visit Diagnoses Not on filedocumented in this encounter Care Teams Western Philosophy Professor Relationship Specialty Start Date End Date Kristen Quispe MD [address] [facility] 60 [place] [address] PCP - General Family Practice 12/19/13 documented as of this encounter
--- OUTSIDE RECORDS SUMMARY | 2025-10-09 08:24 | XMS_ITS | Encounter Summary ---
Author Organization [facility] Address [address] [place] [address] Care Team Providers Care Obgyn Hospitalist Physician Name Role Phone Kristen Quispe MD Primary Care Provider +1- [phone] Encounter Details Date Type Department Care Team (Late st Contact Info) Description 10/05/2007 Outpatient Historical [facility] Medicine [place] [address] [address] Keon Vogel DO NO ADDRESS ON FILE Social History Tobacco Use Types Packs/Day Years Used Date Smoking Tobacco: Never Assessed Comments Unknown Sex and Gender Information Value Date Recorded Sex Assigned at Not on file Legal Sex Female 4:06 AM NAUTICAL INSTRUMENT MECHANIC Gender Identity Not on file Sexual Orientation Not on file documented as of this encounter Plan of Treatment Not on file documented as of this encounter Visit Diagnoses Not on filedocumented in this encounter Care Teams Obgyn Hospitalist Physician Relationship Specialty Start Date End Date Kristen Quispe MD [address] [address] PCP - General Family Practice 12/19/13 documented as of this encounter
--- OUTSIDE RECORDS SUMMARY | 2025-10-09 08:24 | XMS_ITS | Encounter Summary ---
Author Organization [facility] Address [address] [place] [address] Care Team Providers Care Upset Operator Name Role Phone Kristen Quispe MD Primary Care Provider +1- [phone] Encounter Details Date Type Department Care Team (Latest Contact Info) Description 09/10/2005 Outpatient Historical [facility] [address] [address] Qasim Wyman PA NO ADDRESS ON FILE URIN TRACT INFECTION NOS (Primary Dx); ACUTE URI NOS; ABDOMINAL PAIN UNSPEC SITE Social History Tobacco Use Types Packs/Day Years Used Date Smoking Tobacco: Never Assessed Comments Unknown Sex and Gender Information Value Date Recorded Sex Assigned at Not on file Legal Sex Female 4:06 AM STEAM PAN SPONGER Gender Identity Not on file Sexual Orientation Not on file documented as of this encounter Plan of Treatment Not on file documented as of this encounter Visit Diagnoses Diagnosis Urinary tract infection, site not specified- Primary Acute upper respiratory infections of unspecified site Abdominal pain, unspecified site documented in this encounter Care Teams Upset Operator Relationship Specialty Start Date End Date Kristen Quispe MD [address] [address] PCP - General Family Practice 12/19/13 documented as of this encounter
--- OUTSIDE RECORDS SUMMARY | 2025-10-09 08:24 | XMS_ITS | Encounter Summary ---
Author Organization [facility] Address [address] [place] [address] Care Team Providers Care Sql Report Writer Name Role Phone Kristen Quispe MD Primary Care Provider +1- [phone] Encounter Details Date Type Department Care Team (Late st Contact Info) Description 08/14/2006 Outpatient Historical [facility] Imaging Services [address] [place] [address] Social History Tobacco Use Types Packs/Day Years Used Date Smoking Tobacco: Never Assessed Comments Unknown Sex and Gender Information Value Date Recorded Sex Assigned at Not on file Legal Sex Female 4:06 AM TELEPHONE SERVICE ADVISER Gender Identity Not on file Sexual Orientation [...] images demonstrate normal L1- L2 and normal [id number]. L3- L4 shows a mildcircumferential bulge of [...] on filedocumented in this encounter Care Teams Sql Report Writer Relationship Specialty Start Date End Date Kristen Quispe MD [address] [phone] PCP - General Family Practice 12/19/13 documented as of this encounter
--- OUTSIDE RECORDS SUMMARY | 2025-10-09 08:24 | XMS_ITS | Encounter Summary ---
Author Organization [facility] Address [address] [place] [address] Care Team Providers Care Pain Coordinator Name Role Phone Kristen Quispe MD Primary Care Provider +1- [phone] Encounter Details Date Type Department Care Team (Latest Contact Info) Description 01/12/2007 Outpatient Historical [facility] [address] [address] Keon Vogel DO NO ADDRESS ON FILE Contusion of Chest Wall (Primary Dx); Unspecified Otalgia Social History Tobacco Use Types Packs/Day Years Used Date Smoking Tobacco: Never Assessed Comments Unknown Sex and Gender Information Value Date Recorded Sex Assigned at Not on file Legal Sex Female 4:06 AM CRM ARCHITECT Gender Identity Not on file Sexual Orientation Not on file documented as of this encounter Plan of Treatment Not on file documented as of this encounter Visit Diagnoses Diagnosis Contusion of chest wall- Primary Otalgia, unspecified documented in this encounter Care Teams Pain Coordinator Relationship Specialty Start Date End Date Kristen Quispe MD [address] [address] PCP - General Family Practice 12/19/13 documented as of this encounter
--- OUTSIDE RECORDS SUMMARY | 2025-10-09 08:24 | XMS_ITS | Encounter Summary ---
Author Organization [facility] Address [address] [place] [address] Care Team Providers Care Digital Measurement Advisor Name Role Phone Kristen Quispe MD Primary Care Provider +1- [phone] Encounter Details Date Type Department Care Team (Late st Contact Info) Description 09/15/2007 Outpatient Historical [facility] [place] [address] [address] Keon Vogel DO NO ADDRESS ON FILE Social History Tobacco Use Types Packs/Day Years Used Date Smoking Tobacco: Never Assessed Comments Unknown Sex and Gender Information Value Date Recorded Sex Assigned at Not on file Legal Sex Female 4:06 AM RESIN REMOVER Gender Identity Not on file Sexual Orientation Not on file documented as of this encounter Plan of Treatment Not on file documented as of this encounter Visit Diagnoses Not on filedocumented in this encounter Care Teams Digital Measurement Advisor Relationship Specialty Start Date End Date Kristen Quispe MD [address] [address] PCP - General Family Practice 12/19/13 documented as of this encounter
--- OUTSIDE RECORDS SUMMARY | 2025-10-09 08:24 | XMS_ITS | Encounter Summary ---
Author Organization [facility] Address [address] [place] [address] Care Team Providers Care Real Estate Loan Processor Name Role Phone Kristen Quispe MD Primary Care Provider +1- [phone] Encounter Details Date Type Department Care Team (Latest Contact Info) Description 11/12/1998 Outpatient Historical [facility] Medicine [place] [address] [address] Keon Vogel DO NO ADDRESS ON FILE Urinary tract infection, site not specified (Primary Dx) Social History Tobacco Use Types Packs/Day Years Used Date Smoking Tobacco: Never Assessed Comments Unknown Sex and Gender Information Value Date Recorded Sex Assigned at Not on file Legal Sex Female 4:06 AM CHAIR MENDER Gender Identity Not on file Sexual Orientation Not on file documented as of this encounter Plan of Treatment Not on file documented as of this encounter Visit Diagnoses Diagnosis Urinary tract infection, site not specified- Primary documented in this encounter Care Teams Real Estate Loan Processor Relationship Specialty Start Date End Date Kristen Quispe MD [address] [address] PCP - General Family Practice 12/19/13 documented as of this encounter
--- OUTSIDE RECORDS SUMMARY | 2025-10-09 08:24 | XMS_ITS | Encounter Summary ---
Author Organization [facility] Address [address] [place] [address] Care Team Providers Care Zipper Cutter Name Role Phone Kristen Quispe MD Primary Care Provider Encounter Details Date Type Department Care Team (Latest Contact Info) Description 04/19/2001 Outpatient Historical [facility] [address] [address] Rickey Blood MD [address] [facility] [address] [place] [address] Hered prog musc dystrphy (Primary Dx); Degeneration of intervertebral disc, site unspecified; Blood in stool Social History Tobacco Use Types Packs/Day Years Used Date Smoking Tobacco: Never Assessed Comments Unknown Sex and Gender Information Value Date Recorded Sex Assigned at Not on file Legal Sex Female 4:06 AM SCHEDULING REPRESENTATIVE Gender Identity Not on file Sexual Orientation Not on file documented as of this encounter Plan of Treatment Not on file documented as of this encounter Visit Diagnoses Diagnosis 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
--- OUTSIDE RECORDS SUMMARY | 2025-10-09 08:24 | XMS_ITS | Encounter Summary ---
Author Organization [facility] Address [address] [place] [address] Care Team Providers Care Slitter Creaser Slotter Helper Name Role Phone Kristen Quispe MD Primary Care Provider Encounter Details Date Type Department Care Team (Latest Contact Info) Description 11/11/2004 Outpatient Historical [facility] [address] [address] Rickey Blood MD [address] [facility] 200 [place] [address] SCREENING MAL NEOP-BREAST,UNSPEC (Primary Dx); ACUTE SINUSITIS NOS; DEPRESSIVE DISORDER NEC; ENURESIS NOS Social History Tobacco Use Types Packs/Day Years Used Date Smoking Tobacco: Never Assessed Comments Unknown Sex and Gender Information Value Date Recorded Sex Assigned at Not on file Legal Sex Female 4:06 AM AERONAUTICAL INSPECTOR Gender Identity Not on file Sexual Orientation Not on file documented as of this encounter Plan of Treatment Not on file documented as of this encounter Visit Diagnoses Diagnosis Breast screening, unspecified- Primary Acute sinusitis, unspecified Depressive disorder, not elsewhere classified Unspecified urinary incontinence documented in this encounter Care Teams Slitter Creaser Slotter Helper Relationship Specialty Start Date End Date Kristen Quispe MD [address] [address] PCP - General Family Practice 12/19/13 documented as of this encounter
--- OUTSIDE RECORDS SUMMARY | 2025-10-09 08:24 | XMS_ITS | Encounter Summary ---
Author Organization [facility] Address [address] [place] [address] Care Team Providers Care Electrical Manager Name Role Phone Kristen Quispe MD Primary Care Provider +1- [phone] Encounter Details Date Type Department Care Team (Latest Contact Info) Description 03/26/[address] [facility] [address] [phone] Suma Lees NP NO ADDRESS ON FILE Routine Gynecological Examination (Primary Dx) Social History Tobacco Use Types Packs/Day Years Used Date Smoking Tobacco: Never Assessed Comments Unknown Sex and Gender Information Value Date Recorded Sex Assigned at Not on file Legal Sex Female 4:06 AM MUNICIPAL MAINTENANCE WORKER Gender Identity Not on file Sexual Orientation Not on file documented as of this encounter Plan of Treatment Not on file documented as of this encounter Visit Diagnoses Diagnosis Routine gynecological examination- Primary documented in this encounter Care Teams Electrical Manager Relationship Specialty Start Date End Date Kristen Quispe MD [address] [phone] PCP - General Family Practice 12/19/13 documented as of this encounter
--- OUTSIDE RECORDS SUMMARY | 2025-10-09 08:24 | XMS_ITS | Encounter Summary ---
Author Organization [facility] Address [address] [place] [address] Care Team Providers Care Automotive Technician Instructor Name Role Phone Kristen Quispe MD Primary Care Provider Encounter Details Date Type Department Care Team (Latest Contact Info) Description 04/15/2007 Outpatient Historical [facility] Medicine [place] [address] [address] Kami Cortez, EMBEDDED FIRMWARE ENGINEER [address] [place] [address] Unspecified Essential Hypertension (Primary Dx); Acute Upper Respiratory Infections of Unspecified Site Social History Tobacco Use Types Packs/Day Years Used Date Smoking Tobacco: Never Assessed Comments Unknown Sex and Gender Information Value Date Recorded Sex Assigned at Not on file Legal Sex Female 4:06 AM ENDOCRINOLOGY TEACHER Gender Identity Not on file Sexual Orientation Not on file documented as of this encounter Plan of Treatment Not on file documented as of this encounter Visit Diagnoses Diagnosis Unspecified essential hypertension- Primary Acute upper respiratory infections of unspecified site documented in this encounter Care Teams Automotive Technician Instructor Relationship Specialty Start Date End Date Kristen Quispe MD [address] [address] PCP - General Family Practice 12/19/13 documented as of this encounter
--- OUTSIDE RECORDS SUMMARY | 2025-10-09 08:24 | XMS_ITS | Encounter Summary ---
Author Organization [facility] Address [address] [place] [address] Care Team Providers Care Director Client Name Role Phone Kristen Quispe MD Primary Care Provider +1- [phone] Encounter Details Date Type Department Care Team (Late st Contact Info) Description 12/17/2007 Outpatient Historical [facility] Medicine [address] [address] Keon Vogel DO NO ADDRESS ON FILE Social History Tobacco Use Types Packs/Day Years Used Date Smoking Tobacco: Never Assessed Comments Unknown Sex and Gender Information Value Date Recorded Sex Assigned at Not on file Legal Sex Female 4:06 AM PAYROLL REPRESENTATIVE Gender Identity Not on file Sexual [...] further evaluation and treatment. Keon Vogel D.O. [facility] Electronically Signed by Keon Vogel D.O. 12/24/2007 15:40 , payal Hodgson Document #: [id number] cc: OLL REPRESENTATIVE documented in this encounter Plan of Treatment Not on file documented as of this encounter Visit Diagnoses Not on filedocumented in this encounter Care Teams Director Client Relationship Specialty Start Date End Date Kristen Quispe MD [address] [address] PCP - General Family Practice 12/19/13 documented as of this encounter
--- OUTSIDE RECORDS SUMMARY | 2025-10-09 08:24 | XMS_ITS | Encounter Summary ---
Author Organization [facility] Address [address] [place] [address] Care Team Providers Care Automobile Service Station Manager Name Role Phone Kristen Quispe MD Primary Care Provider +1- [phone] Encounter Details Date Type Department Care Team (Latest Contact Info) Description 08/23/2003 Outpatient Historical [facility] [address] [address] Keon Vogel DO NO ADDRESS ON FILE Dysfunct eustachian tube (Primary Dx); URIN TRACT INFECTION NOS Social History Tobacco Use Types Packs/Day Years Used Date Smoking Tobacco: Never Assessed Comments Unknown Sex and Gender Information Value Date Recorded Sex Assigned at Not on file Legal Sex Female 4:06 AM HI TEACHER Gender Identity Not on file Sexual Orientation Not on file documented as of this encounter Plan of Treatment Not on file documented as of this encounter Visit Diagnoses Diagnosis Dysfunct eustachian tube- Primary Dysfunction of Eustachian tube Urinary tract infection, site not specified documented in this encounter Care Teams Automobile Service Station Manager Relationship Specialty Start Date End Date Kristen Quispe MD [address] [address] PCP - General Family Practice 12/19/13 documented as of this encounter
--- OUTSIDE RECORDS SUMMARY | 2025-10-09 08:24 | XMS_ITS | Encounter Summary ---
Author Organization [facility] Address [address] [place] [address] Care Team Providers Care Assistant Passenger Locomotive Engineer Name Role Phone Kristen Quispe MD Primary Care Provider +1- [phone] Encounter Details Date Type Department Care Team (Latest Contact Info) Description 05/08/1998 Outpatient Historical [facility] Urology- [address]tr[address], 3[address] [place] [address] Minor Thomas Jr. [address], [address] [place] [address] Urethritis, unspecified (Primary Dx); Urinary tract infection, site not specified Social History Tobacco Use Types Packs/Day Years Used Date Smoking Tobacco: Never Assessed Comments Unknown Sex and Gender Information Value Date Recorded Sex Assigned at Not on file Legal Sex Female 4:06 AM ENERGY SYSTEMS ENGINEER Gender Identity Not on file Sexual Orientation Not on file documented as of this encounter Plan of Treatment Not on file documented as of this encounter Visit Diagnoses Diagnosis Urethritis, unspecified- Primary Urinary tract infection, site not specified documented in this encounter Care Teams Assistant Passenger Locomotive Engineer Relationship Specialty Start Date End Date Kristen Quispe MD [address] [facility] [address] [place] [phone] PCP - General Family Practice 12/19/13 documented as of this encounter
--- OUTSIDE RECORDS SUMMARY | 2025-10-09 08:24 | XMS_ITS | Encounter Summary ---
Author Organization [facility] Address [address] [place] [address] Care Team Providers Care Paper Tube Machine Operator Name Role Phone Kristen Quispe MD Primary Care Provider +1- [phone] Encounter Details Date Type Department Care Team (Latest Contact Info) Description 05/10/[address] 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
--- OUTSIDE RECORDS SUMMARY | 2025-10-09 08:24 | XMS_ITS | Encounter Summary ---
Author Organization [facility] Address [address] [facility] Attn: [place] [address] Care Team Providers Care Strategic Marketing Specialist Name Role Phone Kristen Quispe MD Primary Care Provider +1- [phone] Encounter Details Date Type Department Care Team [...] on file Legal Sex Female 4:06 AM COLD WORK OPERATOR Gender Identity Not on file Sexual Orientation Not on file documented as of this encounter Plan of Treatment Not on file documented as of this encounter Procedures Procedure Name Priority Date/Time Associated Diagnosis Comments PATHOLOGY Routine 10/24/2008 8:53 AM COLD WORK OPERATOR documented in this encounter Results * PATHOLOGY (10/24/2008 8:53 AM COLD WORK OPERATOR) PATHOLOGY/CYT OLOGY REPORT [facility] Anatomic Pathology Dept Critical access hospital Arley Macdonald [facility] [address] Patient: JORGE SALES Accn No: [id number] Collected: 10/24/2008 8:53:00 AM SURGICAL PATHOLOGY FINAL [...] submitted entirely in B1, nine levels. DLS/WLS [facility] 10/24/2008 8:53 AM COLD WORK OPERATOR Philippe Qiu DO PATHOLOGY/CYTOLOGY ORDERABLES Final Result INTERFACE SYSTEM Refer to clinic/hospital department [facility] CLIA# [id number] [address] [place] [address] documented in this encounter Visit Diagnoses Not on filedocumented in this encounter Care Teams Strategic Marketing Specialist Relationship Specialty Start Date End Date Kristen Quispe MD [address] [facility] [address] [place] [phone] PCP - General Family Practice 12/19/13 documented as of this encounter
--- OUTSIDE RECORDS SUMMARY | 2025-10-09 08:24 | XMS_ITS | Encounter Summary ---
Author Organization [facility] Address [address] [place] [address] Care Team Providers Care Income Tax Expert Name Role Phone Kristen Quispe MD Primary Care Provider +1- [phone] Encounter Details Date Type Department Care Team (Latest Contact Info) Description 08/07/[address] [facility] [place] [address] [address] Keon Vogel DO NO ADDRESS ON FILE Hematuria (Primary Dx); Multiple Sclerosis (CMS/HCC); Abdominal Pain, Unspecified Site; Vaccine for influenza Social History Tobacco Use Types Packs/Day Years Used Date Smoking Tobacco: Never Assessed Comments Unknown Sex and Gender Information Value Date Recorded Sex Assigned at Not on file Legal Sex Female 4:06 AM CAREER SERVICES OFFICER Gender Identity Not on file Sexual Orientation Not on file documented as of this encounter Plan of Treatment Not on file documented as of this encounter Visit Diagnoses Diagnosis Hematuria- Primary Multiple sclerosis Abdominal pain, unspecified site Vaccine for influenza Need for prophylactic vaccination and inoculation against influenza documented in this encounter Care Teams Income Tax Expert Relationship Specialty Start Date End Date Kristen Quispe MD [address] [address] PCP - General Family Practice 12/19/13 documented as of this encounter
--- OUTSIDE RECORDS SUMMARY | 2025-10-09 08:24 | XMS_ITS | Encounter Summary ---
Author Organization [email or web address] Address [address] [place] [address] Care Team Providers Care Respiratory Tech Name Role Phone Kristen Quispe MD Primary Care Provider +1- [phone] Encounter Details Date Type Department Care Team (Late st Contact Info) Description 08/07/2004 Outpatient Historical [facility] Social History Tobacco Use Types Packs/Day Years Used Date Smoking Tobacco: Never Assessed Comments Unknown Sex and Gender Information Value Date Recorded Sex Assigned at Not on file Legal Sex Female 4:06 AM GAS APPLIANCE REPAIRER Gender Identity Not on file Sexual Orientation Not on file documented as of this encounter Plan of Treatment Not on file documented as of this encounter Visit Diagnoses Not on filedocumented in this encounter Care Teams Respiratory Tech Relationship Specialty Start Date End Date Kristen Quispe MD [address] [facility] [address] [place] [address] PCP - General Family Practice 12/19/13 documented as of this encounter
--- OUTSIDE RECORDS SUMMARY | 2025-10-09 08:24 | XMS_ITS | Clinical Summary ---
Author Organization [facility] Address [address] [place] [address] Care Team Providers Care Motion Picture Camera Operator Name Role Phone Kristen Quispe MD Primary Care Provider +1- [phone] Allergies Active Allergy Reactions Criticality Noted Date [...] tablet Take 100 mcg by mouth daily cook manager. Active Active Problems Problem Noted Date Diagnosed [...] file Legal Sex Female 4:06 AM PATIENT ADVOCATE Gender Identity Not on file Sexual Orientation [...] Comments HEMOGLOBIN A1C Routine 11/28/2019 5:29 AM PATIENT ADVOCATE Diabetic neuropathy, type I diabetes mellitus (CMS/HCC) Essential hypertension LIPID PANEL Routine 06/27/2013 1:51 PM CDT Other and unspecified hyperlipidemia HTN (hypertension) MAMMO SCREENING BILAT Routine 09/20/2010 2:47 PM PATIENT ADVOCATE Screening mammogram MD COLONOSCOPY FLX DX W/COLLJ SPEC WHEN PFRMD Routine 10/24/2008 from Last 3 Months or Most Recently Relevant to Health Maintenance Results * (ABNORMAL) HEMOGLOBIN A1C (11/28/2019 5:29 AM PATIENT ADVOCATE) HEMOGLOBIN A1C 5.9(H) <=5.6 % 11/29/2019 11:15 AM PATIENT ADVOCATE [facility] EST. AVG GLUCOSE, A1C 123 mg/dL 11/29/2019 11:15 AM [facility] Blood Collection / Unknown 11/28/2019 5:29 AM PATIENT ADVOCATE 11/28/2019 4:51 PM PATIENT ADVOCATE Narrative [facility] - 11/29/2019 11:15 AM PATIENT ADVOCATE HGB A1C INTERPRETATION NORMAL: <5.7% PRE-DIABETES: 5.7 - 6.4% DIABETES: 6.5% OR GREATER us Drew Puckett MD CHEMISTRY ORDERABLES F inal Result [facility] CLIA# [id number] [address] [place] [address] * (ABNORMAL) LIPID PANEL (06/27/2013 1:51 PM CDT) CHOLESTEROL 165 100 - 200 MG/DL [facility] TRIGLYCERIDE 128 0 - 150 MG/DL [facility] HDL 56 40 - 60 MG/DL [facility] LDL CALCULATED 83 58 - 100 MG/DL [facility] Comment: CALCULATED LDL REFERENCE: < 100 Optimal 100 - 129 Near Optimal 130 - 159 Borderline High > 160 High Risk CHOL/HDL RATIO 2.95(L) 3.27 - 4.44 RATIO [facility] Blood specimen (specimen) 06/27/2013 1:51 PM CDT 06/27/2013 1:52 PM CDT Merlyn Macias DIE ASSEMBLER CHEMISTRY ORDERAB LES Final Result INTERFACE SYSTEM Refer to clinic/hospital department [facility] CLIA# [id number] [address] [place] [address] * MAMMO SCREENING BILAT (09/20/2010 2:47 PM PATIENT ADVOCATE) Anatomical Region Laterality Modality Breast Bilateral Mammography Narrative 09/24/2010 12:30 PM PATIENT ADVOCATE Bilateral Mammogram Reason for Exam: Screening Comparison: [...] Vogel DO MAMMO ORDERABLES Final Result * MD COLONOSCOPY,DIAGNOSTIC (10/24/2008) Philippe Qiu DO MD - DIGESTIVE SYSTEM SERVICE S Final Result [facility] from Last 3 Months or Most Recently Relevant to Health Maintenance Insurance [place] [employer] [place] Advance Directives For more information, please contact: [phone] Documents on File Type Date Recorded Patient It Security Analyst Expl anation Advance Directive POA 02/11/2012 2:50 PM A dvance Directive POA Advance Directive POA 02/11/2012 2:45 PM A dvance Directive POA Advance Directive Living Will 02/11/2012 Care Teams Motion Picture Camera Operator Relationship Specialty Start Date End Date Kristen Quispe MD [address] [address] PCP - General Family Practice 12/19/13
--- OUTSIDE RECORDS SUMMARY | 2025-10-09 08:24 | XMS_ITS | Encounter Summary ---
Author Organization [facility] Address [address] [place] [address] Care Team Providers Care Head Rigger Name Role Phone Kristen Quispe MD Primary Care Provider [phone] Encounter Details Date Type Department Care Team (Latest Contact Info) Description 02/17/2003 Outpatient Historical [facility] [address] [address] Rickey Blood MD [address] [address] URIN TRACT INFECTION NOS (Primary Dx); ACUTE SINUSITIS NOS; DEPRESSIVE DISORDER NEC Social History Tobacco Use Types Packs/Day Years Used Date Smoking Tobacco: Never Assessed Comments Unknown Sex and Gender Information Value Date Recorded Sex Assigned at Not on file Legal Sex Female 4:06 AM SECTION CUTTER Gender Identity Not on file Sexual Orientation Not on file documented as of this encounter Plan of Treatment Not on file documented as of this encounter Visit Diagnoses Diagnosis Urinary tract infection, site not specified- Primary Acute sinusitis, unspecified Depressive disorder, not elsewhere classified documented in this encounter Care Teams Head Rigger Relationship Specialty Start Date End Date Kristen Quispe MD [address] [address] PCP - General Family Practice 12/19/13 documented as of this encounter
--- OUTSIDE RECORDS SUMMARY | 2025-10-09 08:24 | XMS_ITS | Encounter Summary ---
Author Organization [facility] Address [address] [place] [address] Care Team Providers Care Landscape Laborer Name Role Phone Kristen Quispe MD Primary Care Provider Encounter Details Date Type Department Care Team (Latest Contact Info) Description 06/25/1999 Outpatient Historical [facility] [address] [address] Rickey Blood MD [address] [address] Esophageal reflux (Primary Dx); Urinary tract infection, site not specified Social History Tobacco Use Types Packs/Day Years Used Date Smoking Tobacco: Never Assessed Comments Unknown Sex and Gender Information Value Date Recorded Sex Assigned at Not on file Legal Sex Female 4:06 AM CARBURETOR EXPERT Gender Identity Not on file Sexual Orientation Not on file documented as of this encounter Plan of Treatment Not on file documented as of this encounter Visit Diagnoses Diagnosis Esophageal reflux- Primary Urinary tract infection, site not specified documented in this encounter Care Teams Landscape Laborer Relationship Specialty Start Date End Date Kristen Quispe MD [address] [address] PCP - General Family Practice 12/19/13 documented as of this encounter
--- OUTSIDE RECORDS SUMMARY | 2025-10-09 08:24 | XMS_ITS | Encounter Summary ---
Author Organization [facility] Address [address] [place] [address] Care Team Providers Care Tea Bag Machine Tender Name Role Phone Kristen Quispe MD Primary Care Provider +1- [phone] Encounter Details Date Type Department Care Team (Late st Contact Info) Description 08/13/2007 Outpatient Historical [facility] Imaging Services [address] [place] [address] Qasim Aragon MD [address] [place] [id number] Social History Tobacco Use Types Packs/Day Years Used Date Smoking Tobacco: Never Assessed Comments Unknown Sex and Gender Information Value Date Recorded Sex Assigned at Not on file Legal Sex Female 4:06 AM PIPE FINISHING SUPERVISOR Gender Identity Not on file Sexual Orientation [...] on filedocumented in this encounter Care Teams Tea Bag Machine Tender Relationship Specialty Start Date End Date Kristen Quispe MD [address] [address] PCP - General Family Practice 12/19/13 documented as of this encounter
--- OUTSIDE RECORDS SUMMARY | 2025-10-09 08:24 | XMS_ITS | Encounter Summary ---
Author Organization [facility] Address [address] [place] [address] Care Team Providers Care Public Events Facilities Rental Manager Name Role Phone Kristen Quispe MD Primary Care Provider Encounter Details Date Type Department Care Team (Latest Contact Info) Description 09/29/2003 Outpatient Historical [facility] [address] [address] Rickey Blood MD [address] [address] URIN TRACT INFECTION NOS (Primary Dx); HEMATURIA; CANDIDAL VULVOVAGINITIS; ACUTE SINUSITIS NOS Social History Tobacco Use Types Packs/Day Years Used Date Smoking Tobacco: Never Assessed Comments Unknown Sex and Gender Information Value Date Recorded Sex Assigned at Not on file Legal Sex Female 4:06 AM ASSOCIATE ENGINEER Gender Identity Not on file Sexual Orientation Not on file documented as of this encounter Plan of Treatment Not on file documented as of this encounter Visit Diagnoses Diagnosis Urinary tract infection, site not specified- Primary Hematuria Candidiasis of vulva and vagina Acute sinusitis, unspecified documented in this encounter Care Teams Public Events Facilities Rental Manager Relationship Specialty Start Date End Date Kristen Quispe MD [address] [address] PCP - General Family Practice 12/19/13 documented as of this encounter
--- OUTSIDE RECORDS SUMMARY | 2025-10-09 08:24 | XMS_ITS | Encounter Summary ---
Author Organization [facility] Address [address] [place] [address] Care Team Providers Care Alpaca Farmer Name Role Phone Kristen Quispe MD Primary Care Provider [phone] Reason for Referral * Outpatient Services (Routine) - Closed Specialty Diagnoses / Procedures Referred By Contac t Referred To Contact Radiology Diagnoses Tibial plateau fracture Procedures CT KNEE WO CONTRAST LEFT Drew Puckett MD [facility] CT Scan [place] [address] [facility] [address] [place] [address] Phone: tel: fax: Referral ID Status Reason Start Date Expiration Date V isits Requested Visits Authorized [id number] Closed MTN View CTS to Schedule (SGF) 07/30/2017 08/29/2017 1 1 Encounter Details Date Type Department Care Team (Latest Contact Info) Description 07/27/2017 Ancillary Orders [facility] Centralized Scheduling [address] [facility] [address] [place] [address] Drew Puckett MD NO ADDRESS [...] on file Legal Sex Female 4:06 AM GEOPHYSICAL PARTY CHIEF Gender Identity Not on file Sexual Orientation [...] 2.5 mm. Severe osteopenia is also noted. [id number] Narrative Procedure Note Mary Kate Aleman MD [...] 2.5 mm. Severe osteopenia is also noted. [id number] ORDERABLES Final Result documented in this encounter Visit Diagnoses Diagnosis Tibial plateau fracture Closed fracture of upper end of tibia Tibial plateau fracture Closed fracture of upper end of tibia documented in this encounter Care Teams Alpaca Farmer Relationship Specialty Start Date End Date Kristen Quispe MD [address] [phone] PCP - General Family Practice 12/19/13 documented as of this encounter
--- OUTSIDE RECORDS SUMMARY | 2025-10-09 08:24 | XMS_ITS | Encounter Summary ---
Author Organization [facility] Address [address] [place] [address] Care Team Providers Care Leather Finisher Name Role Phone Kristen Quispe MD Primary Care Provider [phone]- [phone] Encounter Details Date Type Department Care Team (Latest Contact Info) Description 05/31/2001 Outpatient Historical [facility] [place] [address] [address] Josh Ordoñez MD Nonspecific abnormal finding in stool contents (Primary Dx) Social History Tobacco Use Types Packs/Day Years Used Date Smoking Tobacco: Never Assessed Comments Unknown Sex and Gender Information Value Date Recorded Sex Assigned at Not on file Legal Sex Female 4:06 AM SPECIMEN COLLECTOR Gender Identity Not on file Sexual Orientation Not on file documented as of this encounter Plan of Treatment Not on file documented as of this encounter Visit Diagnoses Diagnosis Nonspecific abnormal finding in stool contents- Primary documented in this encounter Care Teams Leather Finisher Relationship Specialty Start Date End Date Kristen Quispe MD [address] [phone] PCP - General Family Practice 12/19/13 documented as of this encounter
--- OUTSIDE RECORDS SUMMARY | 2025-10-09 08:24 | XMS_ITS | Encounter Summary ---
Author Organization [facility] Address [address] [place] [address] Care Team Providers Care Eeo Officer Name Role Phone Kristen Quispe MD Primary Care Provider [phone]- [phone] Encounter Details Date Type Department Care Team (Latest Contact Info) Description 11/26/1998 Outpatient Historical [facility] [address] [address] Keon Vogel DO NO ADDRESS ON FILE Vaginitis and vulvovaginitis, unspecified (Primary Dx); Screening for malignant neoplasm of the cervix; Generalized hyperhidrosis Social History Tobacco Use Types Packs/Day Years Used Date Smoking Tobacco: Never Assessed Comments Unknown Sex and Gender Information Value Date Recorded Sex Assigned at Not on file Legal Sex Female 4:06 AM ROUND BONER Gender Identity Not on file Sexual Orientation Not on file documented as of this encounter Plan of Treatment Not on file documented as of this encounter Visit Diagnoses Diagnosis Vaginitis and vulvovaginitis, unspecified- Primary Screening for malignant neoplasm of the cervix Generalized hyperhidrosis documented in this encounter Care Teams Eeo Officer Relationship Specialty Start Date End Date Kristen Quispe MD [address] [address] PCP - General Family Practice 12/19/13 documented as of this encounter
--- OUTSIDE RECORDS SUMMARY | 2025-10-09 08:24 | XMS_ITS | Encounter Summary ---
Author Organization [facility] Address [address] [place] [address] Care Team Providers Care Mold Yard Worker Name Role Phone Kristen Quispe MD Primary Care Provider [phone]- [phone] Encounter Details Date Type Department Care Team (Late st Contact Info) Description 08/06/2005 Outpatient Historical [facility] Social History Tobacco Use Types Packs/Day Years Used Date Smoking Tobacco: Never Assessed Comments Unknown Sex and Gender Information Value Date Recorded Sex Assigned at Not on file Legal Sex Female 4:06 AM TILE PICKER Gender Identity Not on file Sexual Orientation Not on file documented as of this encounter Plan of Treatment Not on file documented as of this encounter Visit Diagnoses Not on filedocumented in this encounter Care Teams Mold Yard Worker Relationship Specialty Start Date End Date Kristen Quispe MD [address] [facility] [address] [place] [address] PCP - General Family Practice 12/19/13 documented as of this encounter
--- OUTSIDE RECORDS SUMMARY | 2025-10-09 08:24 | XMS_ITS | Encounter Summary ---
Author Organization [facility] Address [address] [place] [address] Care Team Providers Care Grand Scribe Name Role Phone Kristen Quispe MD Primary Care Provider [phone]- [phone] Encounter Details Date Type Department Care Team (Latest Contact Info) Description 08/04/2008 Outpatient [facility] Medicine [address] [address] Suma Lees NP NO ADDRESS [...] on file Legal Sex Female 4:06 AM TAX CONSULTANT Gender Identity Not on file Sexual Orientation Not on file documented as of this encounter Plan of Treatment Not on file documented as of this encounter Procedures Procedure Name Priority Date/Time Associated Diagnosis Comments PATHOLOGY Routine 08/04/2008 9:17 AM CDT documented in this encounter Results * PATHOLOGY (08/04/2008 9:17 AM CDT) PATHOLOGY/YEIMY CHINO REPORT [facility] Path[facility] Dept [address] [facility] [address] Patient: JORGE SALES Jes Accn No: [id number] Collected: 08/04/2008 9:17:00 AM CYTOLOGY PAINTER ORDNANCE FINAL REPORT - - EMBEDDED SOFTWARE PROGRAMMER PAP History Specimen Source: None Provided hysterectomy Last Pap Date: None Provided Specimen Adequacy Satisfactory for interpretation. The smear lacks endocervical or metaplastic cells, consistent with the patient's clinical history. Diagnosis NEGATIVE FOR INTRAEPITHELIAL LESION OR MALIGNANCY. (Previously noted as Within Normal Limits) Accounts Receivable Assistant 08/14/08 Completed by: RATNA WILKINS (Electronically signed [...] SYSTEM 08/04/2008 9:17 AM CDT Suma Lees ACTUARIAL DIRECTOR PATHOLOGY/CYTOLOGY ORDERABLE S Edited INTERFACE SYSTEM Refer to clinic/hospital department documented in this encounter Visit Diagnoses Diagnosis Routine gynecological examination documented in this encounter Care Teams Grand Scribe Relationship Specialty Start Date End Date Kristen Quispe MD [address] [place] [address] PCP - General Family Practice 12/19/13 documented as of this encounter
--- OUTSIDE RECORDS SUMMARY | 2025-10-09 08:24 | XMS_ITS | Encounter Summary ---
Author Organization [facility] Address [address] [place] [address] Care Team Providers Care Assistant Refinery Operator Name Role Phone Kristen Quispe MD Primary Care Provider [phone]- [phone] Encounter Details Date Type Department Care Team (Latest Contact Info) Description 07/10/[address] [facility] [place] [address] [address] Keon Vogel DO NO ADDRESS ON FILE Unspecified symptom associated with female genital organs (Primary Dx); Lumbago Social History Tobacco Use Types Packs/Day Years Used Date Smoking Tobacco: Never Assessed Comments Unknown Sex and Gender Information Value Date Recorded Sex Assigned at Not on file Legal Sex Female 4:06 AM OUTDOOR RECREATION SPECIALIST Gender Identity Not on file Sexual Orientation Not on file documented as of this encounter Plan of Treatment Not on file documented as of this encounter Visit Diagnoses Diagnosis Unspecified symptom associated with female genital organs- Primary Lumbago documented in this encounter Care Teams Assistant Refinery Operator Relationship Specialty Start Date End Date Kristen Quispe MD [address] [address] PCP - General Family Practice 12/19/13 documented as of this encounter
--- OUTSIDE RECORDS SUMMARY | 2025-10-09 08:24 | XMS_ITS | Encounter Summary ---
Author Organization [facility] Address [address] [place] [address] Care Team Providers Care Engineering Specialist Technician Name Role Phone Kristen Quispe MD Primary Care Provider [phone] Encounter Details Date Type Department Care Team (Latest Contact Info) Description 02/13/2006 Outpatient Historical [facility] [place] [address] [address] Rickey Blood MD [address] [address] Acute Sinusitis, Unspecified (Primary Dx); Unspecified Backache Social History Tobacco Use Types Packs/Day Years Used Date Smoking Tobacco: Never Assessed Comments Unknown Sex and Gender Information Value Date Recorded Sex Assigned at Not on file Legal Sex Female 4:06 AM SERVICE SECRETARY Gender Identity Not on file Sexual Orientation Not on file documented as of this encounter Plan of Treatment Not on file documented as of this encounter Visit Diagnoses Diagnosis Acute sinusitis, unspecified- Primary Backache, unspecified documented in this encounter Care Teams Engineering Specialist Technician Relationship Specialty Start Date End Date Kristen Quispe MD [address] [address] PCP - General Family Practice 12/19/13 documented as of this encounter
--- OUTSIDE RECORDS SUMMARY | 2025-10-09 08:24 | XMS_ITS | Encounter Summary ---
Author Organization [facility] Address [address] [place] [address] Care Team Providers Care Tissue Technician Name Role Phone Kristen Quispe MD Primary Care Provider [phone]- [phone] Encounter Details Date Type Department Care Team (Latest Contact Info) Description 05/31/2002 Outpatient Historical [facility] [address] [address] Keon Vogel DO NO ADDRESS ON FILE VAGINITIS NOS (Primary Dx); Hered prog musc dystrphy; ACUTE CYSTITIS; Gynecologic examination Social History Tobacco Use Types Packs/Day Years Used Date Smoking Tobacco: Never Assessed Comments Unknown Sex and Gender Information Value Date Recorded Sex Assigned at Not on file Legal Sex Female 4:06 AM FIELD COUNSEL Gender Identity Not on file Sexual Orientation Not on file documented as of this encounter Plan of Treatment Not on file documented as of this encounter Visit Diagnoses Diagnosis Vaginitis and vulvovaginitis, unspecified- Primary 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
--- OUTSIDE RECORDS SUMMARY | 2025-10-09 08:24 | XMS_ITS | Encounter Summary ---
Author Organization [facility] Address [address] [place] [address] Care Team Providers Care Brand Designer Name Role Phone Kristen Quispe MD Primary Care Provider [phone]- [phone] Encounter Details Date Type Department Care Team (Late st Contact Info) Description 08/05/2006 Outpatient Historical [address] [place] [address] Social History Tobacco Use Types Packs/Day Years Used Date Smoking Tobacco: Never Assessed Comments Unknown Sex and Gender Information Value Date Recorded Sex Assigned at Not on file Legal Sex Female 4:06 AM COMMERCIAL ESCROW ASSISTANT Gender Identity Not on file Sexual Orientation Not on file documented as of this encounter Plan of Treatment Not on file documented as of this encounter Visit Diagnoses Not on filedocumented in this encounter Care Teams Brand Designer Relationship Specialty Start Date End Date Kristen Quispe MD [address] [facility] [address] [place] [address] PCP - General Family Practice 12/19/13 documented as of this encounter
--- OUTSIDE RECORDS SUMMARY | 2025-10-09 08:24 | XMS_ITS | Encounter Summary ---
Author Organization [facility] Address [address] [place] [address] Care Team Providers Care Electrician Shop Name Role Phone Kristen Quispe MD Primary Care Provider +1- [phone] Encounter Details Date Type Department Care Team (Latest Contact Info) Description 08/08/2003 Outpatient Historical [facility] [address] [address] Keon Vogel DO NO ADDRESS ON FILE ACUTE MAXILLARY SINUSITIS (Primary Dx); ACUTE URI NOS; URIN TRACT INFECTION NOS Social History Tobacco Use Types Packs/Day Years Used Date Smoking Tobacco: Never Assessed Comments Unknown Sex and Gender Information Value Date Recorded Sex Assigned at Not on file Legal Sex Female 4:06 AM QUALITY DIRECTOR Gender Identity Not on file Sexual Orientation Not on file documented as of this encounter Plan of Treatment Not on file documented as of this encounter Visit Diagnoses Diagnosis Acute maxillary sinusitis- Primary Acute upper respiratory infections of unspecified site Urinary tract infection, site not specified documented in this encounter Care Teams Electrician Shop Relationship Specialty Start Date End Date Kristen Quispe MD [address] [address] PCP - General Family Practice 12/19/13 documented as of this encounter
--- OUTSIDE RECORDS SUMMARY | 2025-10-09 08:24 | XMS_ITS | Encounter Summary ---
Author Organization [facility] Address [address] [place] [address] Care Team Providers Care Primary Teaching Assistant Name Role Phone Kristen Quispe MD Primary Care Provider +1- [phone] Encounter Details Date Type Department Care Team (Latest Contact Info) Description 01/02/2004 Outpatient Historical [facility] [address] [address] Rickey Blood MD [address] [address] URIN TRACT INFECTION NOS (Primary Dx); OTITIS MEDIA NOS Social History Tobacco Use Types Packs/Day Years Used Date Smoking Tobacco: Never Assessed Comments Unknown Sex and Gender Information Value Date Recorded Sex Assigned at Not on file Legal Sex Female 4:06 AM SALES SECRETARY Gender Identity Not on file Sexual Orientation Not on file documented as of this encounter Plan of Treatment Not on file documented as of this encounter Visit Diagnoses Diagnosis Urinary tract infection, site not specified- Primary Unspecified otitis media documented in this encounter Care Teams Primary Teaching Assistant Relationship Specialty Start Date End Date Kristen Quispe MD [address] [address] PCP - General Family Practice 12/19/13 documented as of this encounter
--- OUTSIDE RECORDS SUMMARY | 2025-10-09 08:24 | XMS_ITS | Encounter Summary ---
Author Organization [facility] Address [address] [facility] Attn: [place] [address] Care Team Providers Care Accounts Adjustable Clerk Name Role Phone Kristen Quispe MD Primary Care Provider +1- [phone] Encounter Details Date Type Department Care Team (Late st Contact Info) Description 02/18/2001 Outpatient Historical Non-Staff, Physician NO ADDRESS ON FILE Social History Tobacco Use Types Packs/Day Years Used Date Smoking Tobacco: Never Assessed Comments Unknown Sex and Gender Information Value Date Recorded Sex Assigned at Not on file Legal Sex Female 4:06 AM SHINGLER Gender Identity Not on file Sexual Orientation Not on file documented as of this encounter Plan of Treatment Not on file documented as of this encounter Visit Diagnoses Not on filedocumented in this encounter Care Teams Accounts Adjustable Clerk Relationship Specialty Start Date End Date Kristen Quispe MD [address] [facility] [address] [place] [address] PCP - General Family Practice 12/19/13 documented as of this encounter
--- OUTSIDE RECORDS SUMMARY | 2025-10-09 08:24 | XMS_ITS | Encounter Summary ---
Author Organization [facility] Address [address] [place] [address] Care Team Providers Care Floor Coverings Salesperson Name Role Phone Kristen Quispe MD Primary Care Provider +[phone]- [phone] Encounter Details Date Type Department Care Team (Latest Contact Info) Description 02/22/1999 Outpatient Historical [facility] [address] [address] Keon Vogel DO NO ADDRESS ON FILE Urinary tract infection, site not specified (Primary Dx); Unspecified essential hypertension Social History Tobacco Use Types Packs/Day Years Used Date Smoking Tobacco: Never Assessed Comments Unknown Sex and Gender Information Value Date Recorded Sex Assigned at Not on file Legal Sex Female 4:06 AM CUSTOMER RELATIONS COORDINATOR Gender Identity Not on file Sexual Orientation Not on file documented as of this encounter Plan of Treatment Not on file documented as of this encounter Visit Diagnoses Diagnosis Urinary tract infection, site not specified- Primary Unspecified essential hypertension documented in this encounter Care Teams Floor Coverings Salesperson Relationship Specialty Start Date End Date Kristen Quispe MD [address] [address] PCP - General Family Practice 12/19/13 documented as of this encounter
--- OUTSIDE RECORDS SUMMARY | 2025-10-09 08:24 | XMS_ITS | Encounter Summary ---
Author Organization [facility] Address [address] [place] [address] Care Team Providers Care Public Relations Supervisor Name Role Phone Kristen Quispe MD Primary Care Provider +1- [phone] Encounter Details Date Type Department Care Team (Late st Contact Info) Description 09/26/2020 Lab Requisition [facility] [address] [place] [address] Drew Puckett MD NO ADDRESS [...] on file Legal Sex Female 4:06 AM JORDAN WORKER Gender Identity Not on file Sexual Orientation Not on file Occupation Industry Job Start Date Job End Date Not on file Not on file Not on file Not on file documented as of this encounter Plan of Treatment Not on file documented as of this encounter Procedures Procedure Name Priority Date/Time Associated Diagnosis Comments URINE CULTURE Routine 09/25/2020 11:00 AM JORDAN WORKER documented in this encounter Results * URINE CULTURE (09/25/2020 11:00 AM JORDAN WORKER) CULTURE Polymicrobial growth consistent with normal urethral sohan and/or colonizing bacteria 09/27/2020 12:36 PM JORDAN WORKER [facility] [employer] [facility] Urine URINE SPECIMEN OBTAINED BY CLEAN CATCH PROCEDURE / Unknown Collection / Unknown 09/25/2020 11:00 AM JORDAN WORKER 09/26/2020 5:13 PM JORDAN WORKER us Drew Puckett MD MICROBIOLOGY - GENERAL ORDERABLES Final Result Performing Organization Address City/State/[facility] Co de Phone Number [facility] [address] [place] [address] documented in this encounter Visit Diagnoses Not on filedocumented in this encounter Care Teams Public Relations Supervisor Relationship Specialty Start Date End Date Kristen Quispe MD [address] [phone] PCP - General Family Practice 12/19/13 documented as of this encounter
--- OUTSIDE RECORDS SUMMARY | 2025-10-09 08:24 | XMS_ITS | Encounter Summary ---
Author Organization [facility] Address [address] [place] [address] Care Team Providers Care Internal Audit Senior Manager Name Role Phone Kristen Quispe MD Primary Care Provider +1- [phone] Encounter Details Date Type Department Care Team (Late st Contact Info) Description 02/03/2007 Outpatient Historical [address] [place] [address] Social History Tobacco Use Types Packs/Day Years Used Date Smoking Tobacco: Never Assessed Comments Unknown Sex and Gender Information Value Date Recorded Sex Assigned at Not on file Legal Sex Female 4:06 AM AMPOULE SEALER Gender Identity Not on file Sexual Orientation Not on file documented as of this encounter Plan of Treatment Not on file documented as of this encounter Visit Diagnoses Not on filedocumented in this encounter Care Teams Internal Audit Senior Manager Relationship Specialty Start Date End Date Kristen Quispe MD [address] [facility] [address] [place] [address] PCP - General Family Practice 12/19/13 documented as of this encounter
--- OUTSIDE RECORDS SUMMARY | 2025-10-09 08:24 | XMS_ITS | Encounter Summary ---
Author Organization [facility] Address [address] [place] [address] Care Team Providers Care Pearl Stringer Name Role Phone Kristen Quispe MD Primary Care Provider +1- [phone] Encounter Details Date Type Department Care Team (Latest Contact Info) Description 01/28/2000 Outpatient Historical [facility] [address] [address] Keon Vogel DO NO ADDRESS ON FILE Urinary frequency (Primary Dx); Headache(784.0) Social History Tobacco Use Types Packs/Day Years Used Date Smoking Tobacco: Never Assessed Comments Unknown Sex and Gender Information Value Date Recorded Sex Assigned at Not on file Legal Sex Female 4:06 AM HEAD BOOKKEEPER Gender Identity Not on file Sexual Orientation Not on file documented as of this encounter Plan of Treatment Not on file documented as of this encounter Visit Diagnoses Diagnosis Urinary frequency- Primary Headache(784.0) Headache documented in this encounter Care Teams Pearl Stringer Relationship Specialty Start Date End Date Kristen Quispe MD [address] [address] PCP - General Family Practice 12/19/13 documented as of this encounter
--- OUTSIDE RECORDS SUMMARY | 2025-10-09 08:24 | XMS_ITS | Encounter Summary ---
Author Organization [facility] Address [address] [place] [address] Care Team Providers Care Scenery Builder Name Role Phone Kristen Quispe MD Primary Care Provider +1- [phone] Encounter Details Date Type Department Care Team (Late st Contact Info) Description 02/07/2004 Outpatient Historical [facility] Social History Tobacco Use Types Packs/Day Years Used Date Smoking Tobacco: Never Assessed Comments Unknown Sex and Gender Information Value Date Recorded Sex Assigned at Not on file Legal Sex Female 4:06 AM SCRAPER MEAT Gender Identity Not on file Sexual Orientation Not on file documented as of this encounter Plan of Treatment Not on file documented as of this encounter Visit Diagnoses Not on filedocumented in this encounter Care Teams Scenery Builder Relationship Specialty Start Date End Date Kristen Quispe MD [address] [facility] [address] [place] [address] PCP - General Family Practice 12/19/13 documented as of this encounter
--- OUTSIDE RECORDS SUMMARY | 2025-10-09 08:24 | XMS_ITS | Encounter Summary ---
Author Organization [facility] Address [address] [place] [address] Care Team Providers Care Men'S And Boys' Clothing Salesperson Name Role Phone Kristen Quispe MD Primary Care Provider Encounter Details Date Type Department Care Team (Latest Contact Info) Description 08/20/1998 Outpatient Historical [facility] [address] [address] Rickey Blood MD [address] [address] Urinary tract infection, site not specified (Primary Dx); Backache, unspecified Social History Tobacco Use Types Packs/Day Years Used Date Smoking Tobacco: Never Assessed Comments Unknown Sex and Gender Information Value Date Recorded Sex Assigned at Not on file Legal Sex Female 4:06 AM SPECIAL EDUCATION TEACHING ASSISTANT Gender Identity Not on file Sexual Orientation Not on file documented as of this encounter Plan of Treatment Not on file documented as of this encounter Visit Diagnoses Diagnosis Urinary tract infection, site not specified- Primary Backache, unspecified documented in this encounter Care Teams Men'S And Boys' Clothing Salesperson Relationship Specialty Start Date End Date Kristen Quispe MD [address] [address] PCP - General Family Practice 12/19/13 documented as of this encounter
--- OUTSIDE RECORDS SUMMARY | 2025-10-09 08:24 | XMS_ITS | Encounter Summary ---
Author Organization [facility] Address [address] [place] [address] Care Team Providers Care Cane Flume Chute Operator Name Role Phone Kristen Quispe MD Primary Care Provider +1- [phone] Encounter Details Date Type Department Care Team (Late st Contact Info) Description 05/11/2004 Outpatient Historical [facility] FY06 Keon Vogel, NO ADDRESS ON FILE Social History Tobacco Use Types Packs/Day Years Used Date Smoking Tobacco: Never Assessed Comments Unknown Sex and Gender Information Value Date Recorded Sex Assigned at Not on file Legal Sex Female 4:06 AM GLOVE BOARDER Gender Identity Not on file Sexual Orientation Not on file documented as of this encounter Plan of Treatment Not on file documented as of this encounter Visit Diagnoses Not on filedocumented in this encounter Care Teams Cane Flume Chute Operator Relationship Specialty Start Date End Date Kristen Quispe MD [address] [facility] 60 [place] [address] PCP - General Family Practice 12/19/13 documented as of this encounter
--- OUTSIDE RECORDS SUMMARY | 2025-10-09 08:24 | XMS_ITS | Encounter Summary ---
Author Organization [facility] Address [address] [place] [address] Care Team Providers Care Director Power Name Role Phone Kristen Quispe MD Primary Care Provider Encounter Details Date Type Department Care Team (Latest Contact Info) Description 05/15/2005 Outpatient Historical [facility] [address] [address] Kami Cortez, SPRAY BOOTH OPERATOR [address] [place] [address] ACUTE URI NOS (Primary Dx); ALLERGIC RHINITIS NOS; URINARY FREQUENCY Social History Tobacco Use Types Packs/Day Years Used Date Smoking Tobacco: Never Assessed Comments Unknown Sex and Gender Information Value Date Recorded Sex Assigned at Not on file Legal Sex Female 4:06 AM CATALOG LIBRARY ASSISTANT Gender Identity Not on file Sexual Orientation Not on file documented as of this encounter Plan of Treatment Not on file documented as of this encounter Visit Diagnoses Diagnosis Acute upper respiratory infections of unspecified site- Primary Allergic rhinitis, cause unspecified Urinary frequency documented in this encounter Care Teams Director Power Relationship Specialty Start Date End Date Kristen Quispe MD [address] [address] PCP - General Family Practice 12/19/13 documented as of this encounter
--- OUTSIDE RECORDS SUMMARY | 2025-10-09 08:24 | XMS_ITS | Encounter Summary ---
Author Organization [facility] Address [address] [place] [address] Care Team Providers Care Cloth Shearer Name Role Phone Kristen Quispe MD Primary Care Provider Encounter Details Date Type Department Care Team (Latest Contact Info) Description 07/30/[address] [facility] [address] [address] Rickey Blood MD [address] [address] Phlebitis and thrombophlebitis of unspecified site (Primary Dx); Insomnia, unspecified Social History Tobacco Use Types Packs/Day Years Used Date Smoking Tobacco: Never Assessed Comments Unknown Sex and Gender Information Value Date Recorded Sex Assigned at Not on file Legal Sex Female 4:06 AM SKEIN DYER Gender Identity Not on file Sexual Orientation Not on file documented as of this encounter Plan of Treatment Not on file documented as of this encounter Visit Diagnoses Diagnosis Phlebitis and thrombophlebitis of unspecified site- Primary Insomnia, unspecified documented in this encounter Care Teams Cloth Shearer Relationship Specialty Start Date End Date Kristen Quispe MD [address] [address] PCP - General Family Practice 12/19/13 documented as of this encounter
--- OUTSIDE RECORDS SUMMARY | 2025-10-09 08:24 | XMS_ITS | Encounter Summary ---
Author Organization [facility] Address [address] [place] [address] Care Team Providers Care Paste Up Worker Name Role Phone Kristen Quispe MD Primary Care Provider +1- [phone] Encounter Details Date Type Department Care Team (Latest Contact Info) Description 08/04/2001 Outpatient Historical [facility] [place] [address] [address] Isabel Newby MD NO ADDRESS ON FILE Backache, unspecified (Primary Dx); Unspecified urinary incontinence Social History Tobacco Use Types Packs/Day Years Used Date Smoking Tobacco: Never Assessed Comments Unknown Sex and Gender Information Value Date Recorded Sex Assigned at Not on file Legal Sex Female 4:06 AM ANALOG CIRCUIT DESIGNER Gender Identity Not on file Sexual Orientation Not on file documented as of this encounter Plan of Treatment Not on file documented as of this encounter Visit Diagnoses Diagnosis Backache, unspecified- Primary Unspecified urinary incontinence documented in this encounter Care Teams Paste Up Worker Relationship Specialty Start Date End Date Kristen Quispe MD [address] [phone] PCP - General Family Practice 12/19/13 documented as of this encounter
--- OUTSIDE RECORDS SUMMARY | 2025-10-09 08:24 | XMS_ITS | Encounter Summary ---
Author Organization [facility] Address [address] [place] [address] Care Team Providers Care Photography Sales Associate Name Role Phone Kristen Quispe MD Primary Care Provider +1- [phone] Encounter Details Date Type Department Care Team (Latest Contact Info) Description 07/21/2006 Outpatient Historical [facility] [address] [address] Suma Lees NP NO ADDRESS ON FILE Urinary Tract Infection, Site not Specified (Primary Dx); Hematuria; Acute Pharyngitis; Elevated Blood Pressure Reading without Diagnosis of Hypertension Social History Tobacco Use Types Packs/Day Years Used Date Smoking Tobacco: Never Assessed Comments Unknown Sex and Gender Information Value Date Recorded Sex Assigned at Not on file Legal Sex Female 4:06 AM RAD TECH Gender Identity Not on file Sexual Orientation Not on file documented as of this encounter Plan of Treatment Not on file documented as of this encounter Visit Diagnoses Diagnosis Urinary tract infection, site not specified- Primary Hematuria Acute pharyngitis Elevated blood pressure reading without diagnosis of hypertension documented in this encounter Care Teams Photography Sales Associate Relationship Specialty Start Date End Date Kristen Quispe MD [address] [address] PCP - General Family Practice 12/19/13 documented as of this encounter
--- OUTSIDE RECORDS SUMMARY | 2025-10-09 08:24 | XMS_ITS | Encounter Summary ---
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
--- OUTSIDE RECORDS SUMMARY | 2025-10-09 08:24 | XMS_ITS | Encounter Summary ---
Author Organization [facility] Address [address] [place] [address] Care Team Providers Care Building Inspector Name Role Phone Kristen Quispe MD Primary Care Provider +1- [phone] Encounter Details Date Type Department Care Team (Late st Contact Info) Description 11/19/2007 Outpatient Historical [facility] [address] [address] Keon Vogel, NO ADDRESS ON FILE Social History Tobacco Use Types Packs/Day Years Used Date Smoking Tobacco: Never Assessed Comments Unknown Sex and Gender Information Value Date Recorded Sex Assigned at Not on file Legal Sex Female 4:06 AM APPLIQUE SEWER Gender Identity Not on file Sexual Orientation [...] urine in 2 weeks. Keon Vogel D.O. [facility] Electronically Signed by Keon Vogel D.O. 11/26/2007 15:26 , P, [email or web address] Document #: [id number] cc: IQUE SEWER documented in this encounter Plan of Treatment Not on file documented as of this encounter Procedures Procedure Name Priority Date/Time Associated Diagnosis Comments URINALYSIS DIPSTICK ONLY Stat 12/17/2007 2:55 PM APPLIQUE SEWER URINALYSIS DIPSTICK ONLY Stat 12/03/2007 1:45 PM APPLIQUE SEWER documented in this encounter Results * (ABNORMAL) URINALYSIS DIPSTICK ONLY (12/17/2007 2:55 PM APPLIQUE SEWER) COLOR UA YELLOW YEL [facility] PERFORMED IN OFFICE CLARITY UA CLEAR CLER [facility] PERFORMED IN OFFICE SPECIFIC GRAVITY UA 1.015 1.005 - 1.030 [facility] PERFORMED IN OFFICE PH, URINE 8.0 5.0 - 9.0 [facility] PERFORMED IN OFFICE PROTEIN UA NEGATIVE NEG MG/DL [facility] PERFORMED IN OFFICE GLUCOSE UA NEGATIVE NEG MG/DL [facility] PERFORMED IN OFFICE KETONES UA NEGATIVE NEG MG/DL [facility] PERFORMED IN OFFICE BILIRUBIN UA NEGATIVE NEG [facility] PERFORMED IN OFFICE NITRITE UA NEGATIVE NEG [facility] PERFORMED IN OFFICE UROBILINOGEN UA 0.2 0.2 - 1.0 EU/DL [facility] PERFORMED IN OFFICE BLOOD UA SMALL(A) NEG [facility] PERFORMED IN OFFICE LEUKOCYTE ESTERASE UA NEGATIVE NEG [facility] PERFORMED IN OFFICE 12/17/2007 2:55 PM APPLIQUE SEWER 12/17/2007 3:00 PM APPLIQUE SEWER Keon Vogel DO URINE ORDERABLES Final Result Performing Organization Address [facility] de Phone Number [facility] PERFORMED IN OFFICE * (ABNORMAL) URINALYSIS DIPSTICK ONLY (12/03/2007 1:45 PM APPLIQUE SEWER) COLOR UA YELLOW YEL [facility] PERFORMED IN OFFICE CLARITY UA CLEAR CLER [facility] PERFORMED IN OFFICE SPECIFIC GRAVITY UA 1.010 1.005 - 1.030 [facility] PERFORMED IN OFFICE PH, URINE 5.5 5.0 - 9.0 [facility] PERFORMED IN OFFICE PROTEIN UA NEGATIVE NEG MG/DL [facility] PERFORMED IN OFFICE GLUCOSE UA NEGATIVE NEG MG/DL [facility] PERFORMED IN OFFICE KETONES UA NEGATIVE NEG MG/DL [facility] PERFORMED IN OFFICE BILIRUBIN UA NEGATIVE NEG [facility] PERFORMED IN OFFICE NITRITE UA NEGATIVE NEG [facility] PERFORMED IN OFFICE UROBILINOGEN UA 0.2 0.2 - 1.0 EU/DL [facility] PERFORMED IN OFFICE BLOOD UA SMALL(A) NEG [facility] PERFORMED IN OFFICE LEUKOCYTE ESTERASE UA NEGATIVE NEG [facility] PERFORMED IN OFFICE 12/03/2007 1:45 PM APPLIQUE SEWER 12/03/2007 1:50 PM APPLIQUE SEWER Keon Vogel DO URINE ORDERABLES Final Result Performing Organization Address [facility] Co de Phone Number [facility] PERFORMED IN OFFICE documented in this encounter Visit Diagnoses Not on filedocumented in this encounter Care Teams Building Inspector Relationship Specialty Start Date End Date Kristen Quispe MD [address] [address] PCP - General Family Practice 12/19/13 documented as of this encounter
--- OUTSIDE RECORDS SUMMARY | 2025-10-09 08:24 | XMS_ITS | Encounter Summary ---
Author Organization [facility] Address [address] 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
--- OUTSIDE RECORDS SUMMARY | 2025-10-09 08:24 | XMS_ITS | Encounter Summary ---
Author Organization [facility] Address [address] [facility] Attn: Epic Prelude [place] [address] Care Team Providers Care Bundle Tier Name Role Phone Kristen Quispe MD Primary Care Provider Encounter Details Date Type Department Care Team (Late st Contact Info) Description 01/01/2000 Outpatient Historical Qasim Aragon MD [address] [place] [address] Social History Tobacco Use Types Packs/Day Years Used Date Smoking Tobacco: Never Assessed Comments Unknown Sex and Gender Information Value Date Recorded Sex Assigned at Not on file Legal Sex Female 4:06 AM CROP PEST CONTROL SPECIALIST Gender Identity Not on file Sexual Orientation Not on file documented as of this encounter Plan of Treatment Not on file documented as of this encounter Visit Diagnoses Not on filedocumented in this encounter Care Teams Bundle Tier Relationship Specialty Start Date End Date Kristen Quispe MD [address] [facility] [address] [place] [address] PCP - General Family Practice 12/19/13 documented as of this encounter
--- OUTSIDE RECORDS SUMMARY | 2025-10-09 08:24 | XMS_ITS | Encounter Summary ---
Author Organization [facility] Address [address] [place] [address] Care Team Providers Care Lens Edge Grinder Machine Name Role Phone Kristen Quispe MD Primary Care Provider +1- [phone] Encounter Details Date Type Department Care Team (Late st Contact Info) Description 02/01/2003 Outpatient Historical [facility] Qasim Aragon MD [address] [place] [address] Hered prog musc dystrphy (Primary Dx) Social History Tobacco Use Types Packs/Day Years Used Date Smoking Tobacco: Never Assessed Comments Unknown Sex and Gender Information Value Date Recorded Sex Assigned at Not on file 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
--- OUTSIDE RECORDS SUMMARY | 2025-10-09 08:24 | XMS_ITS | Encounter Summary ---
Author Organization [facility] Address [address] [place] [address] Care Team Providers Care Animal Control Specialist Name Role Phone Kristen Quispe MD Primary Care Provider +1- [phone] Encounter Details Date Type Department Care Team (Latest Contact Info) Description 06/04/2007 Outpatient Historical [facility] [address] [address] Suma Lees NP NO ADDRESS ON FILE Acute Sinusitis, Unspecified (Primary Dx); Dysfunct Eustachian Tube Social History Tobacco Use Types Packs/Day Years Used Date Smoking Tobacco: Never Assessed Comments Unknown Sex and Gender Information Value Date Recorded Sex Assigned at Not on file 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
--- OUTSIDE RECORDS SUMMARY | 2025-10-09 08:24 | XMS_ITS | Encounter Summary ---
Author Organization [facility] Address [address] [place] [address] Care Team Providers Care Gas Plant Repairer Name Role Phone Kristen Quispe MD Primary Care Provider +1- [phone] Encounter Details Date Type Department Care Team (Latest Contact Info) Description 03/26/2006 Outpatient Historical [facility] [address] [address] Suma Lees NP NO ADDRESS ON FILE Routine Gynecological Examination (Primary Dx); Acute Pharyngitis; Acute Sinusitis, Unspecified; Hered Prog Musc Dystrphy Social History Tobacco Use Types Packs/Day Years Used Date Smoking Tobacco: Never Assessed Comments Unknown Sex and Gender Information Value Date Recorded Sex Assigned at Not on file Legal Sex Female 4:06 AM SLASHER HAND Gender Identity Not on file Sexual Orientation Not on file documented as of this encounter Plan of Treatment Not on file documented as of this encounter Visit Diagnoses Diagnosis Routine gynecological examination- Primary Acute pharyngitis Acute sinusitis, unspecified Hered prog musc dystrphy Hereditary progressive muscular dystrophy documented in this encounter Care Teams Gas Plant Repairer Relationship Specialty Start Date End Date Kristen Quispe MD [address] [address] PCP - General Family Practice 12/19/13 documented as of this encounter
--- NOTE | 2025-10-09 10:00 | PM.PN ---
Subjective Subjective: Yuki Sales is a 69 year old female with history of HLD, GERD, DM, arthritis, depression, muscular atrophy, foot drop, and bed bound presenting with complaints of shortness of breath and altered mental status. Patient presents from a long term. Son at bedside to help with patient history. She does not wear oxygen at baseline but is now requiring 2-4 liters. She is altered above baseline but still alert and responsive (yes/no). Patient uses a power wheelchair rarely s/t to severe bilateral pressure ulcers to the buttocks. In the ED, BP 104/60, HR 82, RR 20, RR 20, T 98.1. WBC 16.76, HGB 11.80, PLT 186. Potassium 5.3. BUN 39, Creatinine 0.5. Glucose 148. Lactic 4.1 > 3.5. AST 234, ALT 55. Urinalysis; turbid, 1+ protein, 3+ blood, 3+ leukocytes, 4+ bacteria. Will admit to Hospitalist Service for further evaluation and treatement. 10/09/25 Alert, slower to respond - patient is more pale and cool with open mouth, increased work of breathing. Luther bag at side with dark urine. Hard to get temperature read or pulse oximetry, but finally acheived good wave form with 89%. Continuous fluids discontinued. On 4L > RT consulted, facemask applied. Dr. Mir consulted for patient assessment and ICU transfer. Manual BP showed 92/48. Patient in pain from severe bilateral buttocks ulcers. Limited pain management s/t low blood pressures. Patient needs nutrition but cannot tolerate swallow study at this time. At baseline she is able to swallow with a straw, & eat soft, cut up food including meat.- BNP, EKG, RT, AND status, ABG, and ICU transfer ordered. fire equipment inspector and RN notified. Son Pedro Pablo at bedside is POA and confirms 2022 DNR / AND paperwork. Dr. Fabricio Hoover assuming care. Vitals/I&O/Wt Last Vital Signs Temp 95.2 F L 10/09/25 08:00 Pulse 55 L 10/09/25 08:00 Resp 18 10/09/25 08:00 BP 100/45 10/09/25 08:00 Pulse Ox 95 10/09/25 08:00 O2 Del Method Nasal Cannula 10/09/25 08:00 10/08/25 10/09/25 10/09/25 22:59 06:59 14:59 Intake Total 1250 / 2500 901.667 / 901.667 Output Total 250 / 250 Balance 1250 / 2500 -250 / 2250 901.667 / 901.667 Weight last 48 hrs Weight 71.016 kg Weight 70.364 kg Weight 68.039 kg Physical Exam Narrative: Alert, slower to respond - patient is more pale and cool with open mouth, increased work of breathing. Bilateral buttocks ulcers. Bed bound, bilateral foot drop. Luther bag at side with dark urine. Urinary Catheter Management: Luther Latex: Cath Placed During This Visit: yes Reason for Continuing Indwelling Catheter: Other Urinary Catheter Date of Insertion: 10/08/25 Urinary Catheter Time of Insertion: 16:30 Data 10/09/25 04:49 10/09/25 04:49 Micro: Microbiology 10/08/25 13:29 Blood Culture - Preliminary Blood SPECIMEN COLLECTED 10/08/25 13:29 Blood Culture - Preliminary Blood SPECIMEN COLLECTED A&P Assessment and plan 1. Pneumonia: Left lower lobe pneumonitis Symptomatic with shortness of breath, afebrile WBC 16.76 EKG; SINUS RHYTHM, HR 87, NONSPECIFIC ST & T-WAVE ABNORMALITY COVID, Flu, RSV NEG CXR; Left lower lobe pneumonitis Lactic 4.1 > 3.5 > 3.0 Pulse ox Supplemental o2 > Facemassk RT Vit C, D, Zinc Protonix DVT prophylaxis Transferring from [facility] to ICU today 2. MRSA (methicillin resistant staph aureus) culture positive: MRSA PCR A Positive Supportive care Contact precautions 3. UTI (urinary tract infection): Urinalysis; turbid, 1+ protein, 3+ blood, 3+ leukocytes, 4+ bacteria BUN 39, Creatinine 0.5 I&O 4. Hypothyroid: Continue levothyroxine 5. Diabetes mellitus: Glucose 148 A1c Hold home regimen Sliding scale 6. Pressure ulcers of skin of multiple topographic sites: Bilateral buttocks Wound care Santyl Pain management PDMP PDMP Reviewed: Not Reviewed Attestations Medical Necessity Statement*: Patient expected to transfer to ICU and stay greater than two midnights. Diagnoses Pneumonia J18.9 MRSA (methicillin resistant staph aureus) culture positive Z22.322 UTI (urinary tract infection) N39.0 Hypothyroid E03.9 Diabetes mellitus E11.9 Pressure ulcers of skin of multiple topographic sites L89.90
--- NOTE | 2025-10-09 10:00 | PC.CHAP ---
Pastoral Care Encounter/Spiritual Assessment Type of Contact [] Declined survey cad technician visit [] Patient/Family/Request visit [] Outpatient visit [] Follow-up visit [] Physician referral [] Code/Alert [] Routine visit [] Staff referral [] Actively dying [] Patient sleeping [x] Family support [] [] Out of room [] Palliative care [] [] Receiving care in room [] Pre-surgical visit [] Trauma [] Long length of stay [] ICU visit [x] Other:Contact precautions. No visit. Relational/Emotional Strength [] Patient feels connected with others/family/visitors/staff [] Distress [] Loneliness/isolation [] Abandonment Spirituality of Patient [] Person of Katt [] Attends Yarsani of their Katt [] Believes in Prayer [] Reads Bible or Protestant materials [] There are Spiritual issues to be addressed Hacksaw Inspector Interventions [] Prayer [] Active listening [] Non-anxious presence [] Spiritual/emotional support [] Crisis/trauma care [] Spiritual counseling [] Bereavement support [] Provided bereavement packet [] Provided Bible/devotional materials [] Provided toy/stuffed animal, coloring book to patient or family member [] Provided Communion [] Anointing/[place] [] Salvation [] Completed spiritual assessment [] Other: Impact on Illness or Injury [] Angry [] Fearful [] Anxious [] Often cries [] Exhaustion [] Unable to work [] Unable to attend nondenominational [] Unable to walk/stand [] Unable to read [] Unable to drive [] Unable to eat/drink [] Unable to sleep [] Unable to be with family [] Patient intubated [] Other: Summary Time spent with patient
--- NOTE | 2025-10-09 10:17 | XR_ITS ---
WS: [id number] Portable AP supine chest, 10/09/2025 Clinical Data: dyspnea Comparison: Portable chest, 10/08/2025 Findings: The patchy opacity in the left lower lobe has increased. There is development of a right lower lobe patchy opacity and right pleural effusion. The heart is slightly enlarged. The aortic arch shows calcification and tortuosity. There is a dextroscoliosis. XR/XR chest 1V portable [id number] Impression: 1. Increase in left lower lobe opacity. 2. Development of right lower lobe opacity and right pleural effusion.
--- NOTE | 2025-10-09 10:29 | ECG_ITS ---
[employer] [facility] Test Date: 2025-10-09 Pat Name: Yuki Sales Department: Room: 257 Gender: Female Public Health Worker: : 1955 Requested By: Santosh Mir Order Number: [id number] Reading MD: JASWANT HAAS Measurements Intervals [place] Rate: 81 P: 31 ID: [id number] QRS: 1 QRSD: 108 T: 32 QT: 421 QTc: 490 Interpretive Statements SINUS RHYTHM NONSPECIFIC ST & T-WAVE ABNORMALITY Compared to ECG 10/08/2025 13:25:01 No significant changes Electronically Signed On 10-10-2025 11:57:58 LAWN AND GARDEN TECHNICIAN by JASWANT HAAS [email or web address]
[2025-10-09 11:25] LABS: Troponin T (5th) Once 53 ng/L (0-10)
--- NOTE | 2025-10-09 11:27 | PC.NURSE ---
transfer pt was transferred to icu 9 report called to chris.
--- NOTE | 2025-10-09 11:29 | PC.NURSE ---
Arrived from [place], cool pale dusky skin, opened eyes to stimuli
--- NOTE | 2025-10-09 11:42 | PC.NURSE ---
BP 76/[address] Hoover approved order for levophed nofitied provider of signs of poor perfusion and labored shallow breathing
[2025-10-09] MEDS: cefepime 1,000 mg SDV 1000 MG IVP ×2 (12:25→20:46)
[2025-10-09 13:03] LABS: NT Pro B Type Natriuretic Pept 779 pg/mL (0-125)
--- NOTE | 2025-10-09 14:25 | PHA.VACGOAL ---
Vancomycin Goal - Goal Vancomycin Goal:: 15-20 mg/L Vancomycin Indication:: Pneumonia - Therapy Day of therpy:: Day []of [] . Actual body weight (kg): 71.016 kg - Data Labs: WBC 20.63 10^3/uL (3.29-11.43) H 10/09/25 04:49 RBC 4.92 10^6/uL (3.85-5.65) 10/09/25 04:49 Hgb 11.10 g/dL (11.27-16.99) L 10/09/25 04:49 Hct 40.8 % (36-47) 10/09/25 04:49 MCV 82.9 fl (85-98) L 10/09/25 04:49 MCH 22.6 pg (27-33) L 10/09/25 04:49 MCHC 27.2 g/dL (30-55) L 10/09/25 04:49 RDW 27.1 % (12.1-15.1) H 10/09/25 04:49 Sodium 148 mmol/L (136-145) H 10/09/25 04:49 Potassium 5.0 mmol/L (3.5-5.1) 10/09/25 04:49 Chloride 116 mmol/L (98-107) H 10/09/25 04:49 Carbon Dioxide 20 mmol/L (22-29) L 10/09/25 04:49 Anion Gap 17.0 (5-19) 10/09/25 04:49 BUN 43 mg/dL (8-23) H 10/09/25 04:49 Creatinine 0.4 mg/dL (0.5-0.9) L 10/09/25 04:49 GFR Calculation 159.2 mL/min (90-130) H 10/09/25 04:49 Treatment plan:: new consult Regimen:: 2000 MG LOAD 750 MG Q12H MAINTENANCE
--- NOTE | 2025-10-09 16:26 | PC.SLP ---
The pt is unable to participate in ASSEMBLER [employer]AL [employer]URNITURE assessment due to her medical condition.
--- NOTE | 2025-10-09 16:53 | PC.NURSE ---
Addendum entered by Alban Frances RN 10/09/25 16:56: v.o. recieved to repeat 500 ml fluid bolus for bp Original Note: Dr. Hoover came to bedside approximately 1530 patient less responsive than arrival did not respond when turned for MD to assess wounds, plan to continue abx for pneumonia
[2025-10-09] MEDS: norepinephrine 4 MG/250 ML BAG 7.5 MG IV (18:20)
--- NOTE | 2025-10-09 21:05 | ECG_ITS ---
[facility] Date: 2025-10-09 Pat Name: Yuki Sales Department: Room: [facility] Gender: Female Flare Stitcher: : 1955 Requested By: Jarvis Hodgson Order Number: [id number] Aguila MD: JASWANT HAAS Measurements Intervals [place] Rate: 36 P: 138 WV: 186 QRS: 137 QRSD: 128 T: 131 QT: 529 QTc: 410 Interpretive Statements SINUS BRADYCARDIA ARM LEADS REVERSED [INVERTED P AND QRS IN I] CRITICAL TEST RESULT Compared to ECG 10/09/2025 10:29:15 Sinus rhythm no longer present T-wave abnormality no longer present Electronically Signed On 10-10-2025 11:55:23 THREAD SINGER by JASWANT HAAS [id number]
[2025-10-09] MEDS: morphine 4 mg/mL SDV 1 mL 2 MG IVP (21:21)
[2025-10-09] MEDS: atropine 1 mg/mL SDV 1 mL (21:24)
--- NOTE | 2025-10-09 21:30 | PC.NURSE ---
Addendum entered by Veronica Grady RN 10/09/25 21:40: Listened for heartbeat/breathing sounds with SUZE Dunn. Confirmed TOD at 2127. Original Note: Dr. Kelly contacted for pt decreasing HR. EKG ordered and completed. talked with pt son and it was decided pt was still DNR and was going to be made comfortable. Pt HR continued to slow with intermittent pauses. Pt showed asystole on the monitor and this nurse as well as SUZE Martin listened for heartbeat. TOD 2127
--- NOTE | 2025-10-09 22:07 | W.PM.EVENTAC ---
Event Note Event Note: Informed tonight of patient bradycardia in the 30s. I went to visit the patient. On entering the room, patient skin is mottled. She is cyanotic with agonal breathing. HR is in the 30s. EKG obtained showed sinus bradycardia. No block. 1mg Atropine ordered with modest improvement of HR to the 40s but later declined. Discussed with nursing and decision made to make the patient comfortable. DNR status confirmed with son in the room. Informed of patient later. Time of 2127
--- NOTE | 2025-10-10 00:08 | PC.NURSE ---
MTS contacted. Per MTS databases computer consultant, pt body released due to WBC and possible sepsis. Ref # [id number]
--- NOTE | 2025-10-10 00:11 | PC.NURSE ---
Bin Time: 9
--- NOTE | 2025-10-10 10:39 | PC.NURSE ---
[facility] arrived at this time and the pts body was released to them.
== END 2025-10-10 00:12 | disposition expired | DRG 137 ==
LOC: ER 14:15 → MEDSURG 15:13 → ICU 10-09 11:23
PROVIDERS: Clinical Nurse Specialist Acute Care; Internal Medicine; Admitting Provider Internal Medicine; Emergency Provider Emergency Medicine; Visit Provider Internal Medicine
DX: J15.212 Pneumonia due to Methicillin resistant Staphylococcus aureus (principal); N39.0 Urinary tract infection, site not specified; E03.9 Hypothyroidism, unspecified; E11.9 Type 2 diabetes mellitus without complications; I96 Gangrene, not elsewhere classified; L89.151 Pressure ulcer of sacral region, stage 1; L89.323 Pressure ulcer of left buttock, stage 3; L89.313 Pressure ulcer of right buttock, stage 3; M19.90 Unspecified osteoarthritis, unspecified site; M62.50 Muscle wasting and atrophy, not elsewhere classified, unspecified site; F32.A Depression, unspecified; E78.5 Hyperlipidemia, unspecified; K21.9 Gastro-esophageal reflux disease without esophagitis; Z74.01 Bed confinement status; Z66 Do not resuscitate; Z79.4 Long term (current) use of insulin; Z79.891 Long term (current) use of opiate analgesic; Z79.02 Long term (current) use of antithrombotics/antiplatelets
CPT/HCPCS: 36415; 36416; 51702; 71045; 80053; 81001; 82962; 83036; 83605; 83735; 83880; 84484; 85025; 87040; 87486; 87581; 87633; 93005; 94640; 94669; 96365; 96375; 99285; J0456; J0461; J0692; J0696; J2270; J2470; J3372; J7030; J7040; J7050; J7799; J9999